=== PATIENT | female | born 1970 | race Caucasian/White ===

== ENCOUNTER 2019-07-09 13:12 | Outpatient (CLI) | payer OTHER, SELFPAY ==
--- NOTE | ~2019-07-09 | XR_ITS ---
EXAMINATION: XR hand RT min 3V DATE: 07/09/2019 13:40 INDICATION: Right hip arthritis. TECHNIQUE: 3 views of right hand were obtained. COMPARISON: None. FINDINGS: Bone alignment is normal. No fracture. There is mild osteoarthritis of third-fifth distal i nterphalangeal joints. IMPRESSION: 1. Mild polyarticular osteoarthritis. Reviewed, dictated and finalized at location A.
== END 2019-07-09 13:13 | disposition home or self-care (01) ==
LOC: ANHIMG 13:22
PROVIDERS: PCP Family Medicine
DX: M19.041 Primary osteoarthritis, right hand (principal)
CPT/HCPCS: 73130

== ENCOUNTER 2019-07-24 11:47 | Outpatient (CLI) | payer OTHER, SELFPAY ==
--- NOTE | ~2019-07-24 | XR_ITS ---
EXAMINATION: XR wrist RT min 3V DATE: 07/24/2019 12:16 INDICATION: Right wrist pain radiating to the thumb. Osteoarthritis of finger joint of right hand. TECHNIQUE: 2 views of right wrist were obtained. COMPARISON: Right hand radiographs 07/09/2019 FINDINGS: Bone alignment is normal. No fracture. Joint spaces are well maintained. IMPRESSION: 1. Normal right wrist. Reviewed, dictated and finalized at location A. IMPRESSION: 1. Normal right wrist.
== END 2019-07-24 11:48 | disposition home or self-care (01) ==
PROVIDERS: PCP Family Medicine
DX: M19.041 Primary osteoarthritis, right hand (principal)
CPT/HCPCS: 73110

== ENCOUNTER 2019-08-28 10:00 | Outpatient (RCR) | payer OTHER, SELFPAY ==
--- NOTE | 2019-08-02 10:43 | OTOPEVAL ---
OCCUPATIONAL THERAPY EVALUATION REPORT 08/02/2019 Thank you for referring Amelia Fleming to [facility]. Skilled OT indicated 2x/week for 4 weeks for deficits described below. Please review, sign, date and return this plan of care BINTA. I agree with and certify that the following plan of care is medically necessary. Referring Physician Date Referring Provider: Alix Smith NP *OT Outpatient Evaluation Therapy Assessment Status Assessment Status Assessment Status Evaluation Outpatient Past Medical History Neurological History Hx Seizures Yes Hx Transient Ischemic Attacks (TIA) Yes Cardiovascular History Hx Angina Yes Hx Hypertension Yes Hx Myocardial Infarction Yes Respiratory History Hx Chronic Obstructive Pulmonary Disease Yes (COPD) Gastrointestinal History Hx Gastroesophageal Reflux Disease Yes Hx Hernia Yes Hx Irritable Bowel Yes Musculoskeletal History Hx Arthritis Yes Evaluation Information Problem Diagnosis OA (R) hand Onset Feb 2019 Subjective Information Patient reports having pain in Query Text:As Reported By Patient/ the right wrist, shooting Family pain with AROM, which would make her hand go to sleep with some electric shocks into the hand and fingers. She also reports joint pain in the thumb and middle finger, noting the thumb being the worse of the two. Patient reports a decline in her ability to use the right hand and has avoided specific activities because of the pain . She has family help with chopping in the kitchen, she is avoiding using the right thumb to put her hair in a pony tail. Pain Assessment Timing of Pain Assessment Timing of Pain Assessment Assessment Pain Scale Pain Scale Used Numeric (1 - 10) Self Report Pain Assessment Right Hand(s) Reported Pain Level 7 Pain Description Aching,Burning,Throbbing, Tightness Lowest Pain Intensity 3 Greatest Pain Intensity 10 Pain Aggravating Factors ADL's Pain Score Pain Score 7: Self Report Upper Extremity Range of Motion Elbow/Forearm Range of Motion Right Reason Not Measured WNL/Right Elbow/Forearm Range of Motion Comments Pain with forearm rotat
--- NOTE | 2019-08-28 11:10 | OTOPEVAL ---
OCCUPATIONAL THERAPY DISCHARGE NOTE 08/28/2019 Therapy re-evaluation today reveals progression/worsening of symptoms of trigger thumb, trigger finger of the MF, and carpal tunnel syndrome. Strongly recommend that she follow up with hand specialist for further treatment before continued therapy. Plan to discharge today with patient independent with splinting and pain reduction techniques. Thank you for referring Amelia Fleming to [facility]. Please review, sign, date and return this D/C Note BINTA. I agree with and certify that the following plan of care is medically necessary. Referring Physician Date Referring Provider: Alix Smith, [facility] CC Dr. Tubbs, per patient request. *OT Outpatient Re-Evaluation Problem Diagnosis OA (R) hand Onset Feb 2019 Additional Evaluation Detail Amelia has participated in 8 sessions of outpatient OT, which have been focusing on pain and inflammation reduction through use of modalities, splinting, and manual therapy. Therapy has not been able to progress past the above treatments due to pain and inflammation not subsiding to allow for AROM/ exercise. She has been compliant with splinting/ immobilization as well as icing and manual therapy at home. Subjective Information Patient reports that her pain Query Text:As Reported By Patient/ and symptoms have gotten worse Family since beginning therapy. Pain Assessment Timing of Pain Assessment Timing of Pain Assessment Re-assessment Pain Scale Pain Scale Used Numeric (1 - 10) Self Report Pain Assessment Right Hand(s) Reported Pain Level 9 Pain Description Aching,Sharp,Shooting,Stabbing ,Tightness,Tingling Pain Radiation Right Elbow Pain Frequency Chronic Lowest Pain Intensity 6 Greatest Pain Intensity 10 Pain Score Pain Score 9: Self Report Upper Extremity Range of Motion Elbow/Forearm Range of Motion Right Reason Not Measured WFL/Right Wrist Range of Motion Right Wrist Flexion - Active 30 Wrist Extension - Active 55 Wrist Radial Deviation - Active 15 Wrist Ulnar Deviation - Active 30 Wrist Range of Motion Limitations Pain Wrist Range of Motion Comments Wrist flexion decreased from 45* Wrist extension decreased from 65*
== END 2019-08-29 14:12 | disposition home or self-care (01) ==
LOC: ANHOT 10:00
PROVIDERS: PCP Family Medicine
DX: M19.041 Primary osteoarthritis, right hand (principal)
CPT/HCPCS: 97018; 97035; 97110; 97140; 97165; 97763; L3808; L3933

== ENCOUNTER 2020-04-03 17:43 | Emergency (ER) | payer OTHER, SELFPAY ==
--- NOTE | 2020-04-03 18:06 | ED.URI ---
HPI - URI/Sore Throat General Chief Complaint: Upper Respiratory Infection Stated Complaint: sore throat Time Seen by Provider: 04/03/20 18:25 Source: patient and RN notes reviewed Mode of arrival: ambulatory Limitations: no limitations History of Present Illness HPI Narrative: 49-year-old female presents with concern for 2 days history of sore throat, right ear pain. Reports history of problems with her ear. She denies fever, cough, shortness of breath, change in sense of taste or smell, body aches, chills, sweats. Denies any intervention. MD elicited complaint: sore throat Related Data Home Medications Medication Instructions Recorded Confirmed Daily Multivitamin 04/03/20 amitriptyline 04/03/20 budesonide-formoterol [Symbicort] INHALATION 04/03/20 cetirizine mg 04/03/20 cholecalciferol (vitamin D3) 04/03/20 famotidine 04/03/20 lisinopril 04/03/20 metoprolol tartrate 04/03/20 naproxen 04/03/20 oxybutynin chloride 04/03/20 rosuvastatin mg 04/03/20 Allergies Allergy/AdvReac Type Severity Reaction Status Date / Time coconut Allergy Severe Anaphylactic Verified 06/14/18 17:48 Shock Penicillins Allergy Unknown Hives / Verified 06/14/18 17:48 Red Face Sulfa (Sulfonamide Allergy Unknown Hives / Verified 06/14/18 17:48 Antibiotics) Red Face Bumble Bee Allergy Severe Anaphylactic Uncoded 06/14/18 17:48 Shock Review of Systems Review of Systems: Narrative: CONSTITUTIONAL: Denies malaise, chills, sweats, or fever. EYES: Denies visual changes, redness, or discharge. ENT: Denies rhinorrhea, congestion, sinus pain. Reports otalgia and sore throat. CARDIOVASCULAR: Denies chest pain, palpitations, or edema. RESPIRATORY: Reports cough. Denies dyspnea. GASTROINTESTINAL: Denies abdominal pain, nausea, vomiting, diarrhea SKIN: Denies rash or itching. MUSCULOSKELETAL: Denies myalgia. NEUROLOGIC: Denies headache. All systems reviewed & are unremarkable except as noted in HPI and below PMFSH Comments At time of signature, agree with nursing past medical, surgical, social and family history. There is no relevant family history pertinent to the presenting complaint Exam Narrative: Exam Narrative: GENERAL: Well-appearing, well-nourished, and in no acute distress. HEAD: Normocephalic EYES: PERRLA, conjunctivae clear ENT: Nares clear, turbinates erythematous, clear discharge. Mucous membranes moist. TM pearly carpenter with dull light reflex on the left, sharp on the right; no tragal tenderness. Oropharynx not erythematous without lesions. Tonsils not enlarged and without exudate, no drooling, no hoarseness, no trismus, uvula midline. NECK: Supple. No lymphadenopathy CHEST: Clear to auscultation, breath sounds equal. No wheezing, rhonchi, rales, or stridor. No respiratory distress, speaks in full sentences. HEART: Regular rate and rhythm. No murmur heard. SKIN: Warm, dry, no rash. NEURO: Alert and oriented x3. PSYCH: Normal mood and affect Course Course Emergency Course: Patient is aware of diagnosis, understands and agrees to treatment plan. Anticipatory guidance given. Patient agrees to follow-up as directed and is aware of reasons to seek care at the emergency department. Portions of this record may have been created with voice recognition software Vital Signs Vital signs: Vital Signs Temperature 97.2 F L 04/03/20 18:10 Pulse Rate 87 04/03/20 18:10 Respiratory Rate 18 04/03/20 18:10 Blood Pressure 122/77 04/03/20 18:10 Pulse Oximetry 98 04/03/20 18:10 Temperature 97.2 F L 04/03/20 18:10 Pulse Rate 87 04/03/20 18:10 Respiratory Rate 18 04/03/20 18:10 Blood Pressure 122/77 04/03/20 18:10 Pulse Oximetry 98 04/03/20 18:10 Reviewed. MDM - URI/Sore Throat MDM Narrative Medical decision making narrative: Differential diagnosis considered: Alaniz virus, strep pharyngitis, allergic rhinitis, upper respiratory tract infection, sinusitis, rhinosinusitis, nasopharyn
[2020-04-03 18:10] VITALS: BP 122/77; PULSE 87; RESP 18; TEMP 36.2; O2SAT 98
== END 2020-04-03 18:44 | disposition home or self-care (01) ==
PROVIDERS: Emergency Provider Nurse Practitioner
DX: J06.9 Acute upper respiratory infection, unspecified (principal); Z20.822 Contact with and (suspected) exposure to COVID-19; Z86.73 Personal history of transient ischemic attack (TIA), and cerebral infarction without residual deficits; I20.9 Angina pectoris, unspecified; E78.00 Pure hypercholesterolemia, unspecified; I10 Essential (primary) hypertension; I25.2 Old myocardial infarction; G47.33 Obstructive sleep apnea (adult) (pediatric); K21.9 Gastro-esophageal reflux disease without esophagitis; M19.90 Unspecified osteoarthritis, unspecified site
CPT/HCPCS: 87081; 87426; 87804; 87880; 99213; C9803; G0463

== ENCOUNTER 2021-02-23 15:57 | Emergency (ER) | payer OTHER, SELFPAY ==
[2021-02-23 16:10] VITALS: BP 111/59; PULSE 73; RESP 16; TEMP 35.7; O2SAT 98
--- NOTE | 2021-02-23 16:43 | ED.URI ---
HPI - URI/Sore Throat General Chief Complaint: Upper Respiratory Infection Stated Complaint: cough Time Seen by Provider: 02/23/21 16:45 Source: patient, family, RN notes reviewed and old records reviewed Mode of arrival: ambulatory Limitations: no limitations History of Present Illness HPI Narrative: 50-year-old female presents to the [facility] care with complaints of cough, sore throat and sinus pressure for 1 week. Has been taking Coricidin HBP. Denies fevers, chest pain, abdominal pain. MD elicited complaint: cough, sore throat, rhinorrhea and nasal congestion Related Data Home Medications Medication Instructions Recorded Confirmed Daily Multivitamin 04/03/20 amitriptyline 25 mg PO DAILY 04/03/20 cetirizine 10 mg PO DAILY 04/03/20 cholecalciferol (vitamin D3) 04/03/20 famotidine 20 mg PO DAILY 04/03/20 lisinopril 10 mg PO DAILY 04/03/20 metoprolol tartrate 04/03/20 naproxen 500 mg PO BID 04/03/20 oxybutynin chloride 5 mg PO BID 04/03/20 rosuvastatin 20 mg PO DAILY 04/03/20 B-Complex W/Vitamin B-12 DAILY 02/23/21 aspirin 81 mg PO DAILY 02/23/21 02/23/21 cholecalciferol (vitamin D3) 25 mcg PO DAILY 02/23/21 02/23/21 esomeprazole magnesium [Nexium] 40 mg PO DAILY 02/23/21 02/23/21 metoprolol tartrate 25 mg PO DAILY 02/23/21 02/23/21 nitroglycerin 0.4 mg SUBLINGUAL Q5M PRN 02/23/21 02/23/21 Allergies Allergy/AdvReac Type Severity Reaction Status Date / Time coconut Allergy Severe Anaphylactic Verified 02/23/21 16:38 Shock Penicillins Allergy Unknown Hives / Verified 02/23/21 16:38 Red Face Sulfa (Sulfonamide Allergy Unknown Hives / Verified 02/23/21 16:38 Antibiotics) Red Face Bumble Bee Allergy Severe Anaphylactic Uncoded 02/23/21 16:38 Shock Review of Systems Review of Systems: All systems reviewed & are unremarkable except as noted in HPI and below Constitutional: Constitutional: Reports no additional constitutional complaints, Denies chills, Denies fever(s) and Denies headache(s) Eyes: Eyes: Reports no additional eye complaints ENT: Reports as per HPI, Denies vertigo, Denies dizziness, Denies headache(s), Reports nasal congestion and Reports sore throat Cardiovascular: Cardiovascular: Reports no additional cardiovascular complaints, Denies chest pain, Denies syncope, Denies rapid heart rate and Denies dyspnea Respiratory: Respiratory: Reports as per HPI, Reports chest congestion, Reports cough, Denies dyspnea and Denies wheezing Gastrointestinal: Gastrointestinal: Reports no additional gastrointestinal complaints, Denies abdominal pain, Denies diarrhea, Denies nausea and Denies vomiting Musculoskeletal: Musculoskeletal: Reports no additional musculoskeletal complaints and Denies numbness Integumentary/Breasts: Skin/Breast: Reports system reviewed and no additional complaints, except as docu Neurologic: Reports system reviewed and no additional complaints, except as documented, Denies vertigo, Denies dizziness, Denies syncope, Denies headache(s), Denies focal weakness and Denies numbness Psychiatric: Psychiatric: Reports no additional psychiatric complaints Allergic/Immunologic: Allergic/Immunologic: Reports no additional allergic/immunologic complaints and Denies wheezing PMFSH Past Medical History Medical History (Updated 02/25/21 @ 10:35 by Arianne Syed) COPD (chronic obstructive pulmonary disease) History of angina History of congestive heart failure Hypertension Social History Social History (Updated 02/25/21 @ 10:36 by Arianne Syed) Smoking status: Former smoker Living arrangements: with family Comments At the time of my signature, I reviewed and agree with the nursing past medical, surgical, social, and family history. There is no relevant family history pertinent to the patient complaint. Exam Const: General: cooperative, no acute distress, well developed, alert and ill appearing acutely (mild) and chronically Nutritional Appearance: well nourished and
== END 2021-02-23 17:02 | disposition home or self-care (01) ==
PROVIDERS: Emergency Provider Nurse Practitioner
DX: J40 Bronchitis, not specified as acute or chronic (principal); J44.9 Chronic obstructive pulmonary disease, unspecified; I11.0 Hypertensive heart disease with heart failure; I50.9 Heart failure, unspecified; Z87.891 Personal history of nicotine dependence; I20.9 Angina pectoris, unspecified
CPT/HCPCS: 99213; G0463

== ENCOUNTER 2022-03-22 17:31 | Emergency (ER) | payer OTHER, SELFPAY ==
[2022-03-22 17:43] VITALS: BP 131/73; PULSE 89; RESP 16; TEMP 36.3; O2SAT 99
[2022-03-22 17:46] VITALS: BP 131/73; PULSE 89; RESP 16; TEMP 36.3; O2SAT 99
--- NOTE | 2022-03-22 18:07 | ED.SKABFB ---
HPI - Skin/Abscess/Foreign Bdy General Chief complaint: Skin/Abscess/Foreign Body Stated complaint: rash Time Seen by Provider: 03/22/22 18:07 Source: patient Mode of arrival: ambulatory Limitations: no limitations History of Present Illness HPI narrative: 51 year old female presented for complaint of red itchy/burning rash to left side. Onset about 3 days, states it has been spreading since onset. Denies changes to lotion, soap, detergent, etc. Denies other locations of rash. Denies contacts with similar symptoms. Denies lip, tongue or throat swelling/itching, sob or wheezing. Not taking anything for symptoms. Related Data Home Medications Medication Instructions Recorded Confirmed Daily Multivitamin 04/03/20 cetirizine 10 mg tablet 10 mg PO DAILY 04/03/20 famotidine 20 mg tablet 20 mg PO DAILY 04/03/20 lisinopril 10 mg tablet 10 mg PO DAILY 04/03/20 naproxen 500 mg tablet 500 mg PO BID 04/03/20 oxybutynin chloride 5 mg tablet 5 mg PO BID 04/03/20 rosuvastatin 10 mg tablet 20 mg PO DAILY 04/03/20 B-Complex W/Vitamin B-12 DAILY 02/23/21 aspirin 81 mg capsule 81 mg PO DAILY 02/23/21 02/23/21 cholecalciferol (vitamin D3) 25 25 mcg PO DAILY 02/23/21 02/23/21 mcg (1,000 unit) tablet esomeprazole magnesium 40 mg 40 mg PO DAILY 02/23/21 02/23/21 capsule,delayed release (Nexium) metoprolol tartrate 25 mg tablet 25 mg PO DAILY 02/23/21 02/23/21 nitroglycerin 0.4 mg sublingual 0.4 mg sublingual Q5M PRN Chest 02/23/21 02/23/21 tablet Pain Allergies Allergy/AdvReac Type Severity Reaction Status Date / Time coconut Allergy Severe Anaphylactic Verified 02/23/21 16:38 Shock Penicillins Allergy Unknown Hives / Verified 02/23/21 16:38 Red Face Sulfa (Sulfonamide Allergy Unknown Hives / Verified 02/23/21 16:38 Antibiotics) Red Face cortisone Allergy Swelling Verified 03/22/22 17:44 Bumble Bee Allergy Severe Anaphylactic Uncoded 02/23/21 16:38 Shock Review of Systems Review of Systems: CONSTITUTIONAL: Denies body aches, fever, chills, or sweats. EYES: Denies visual changes, redness, or discharge. ENT: Denies rhinorrhea, congestion CARDIOVASCULAR: Denies chest pain, palpitations, or edema. RESPIRATORY: Denies cough or dyspnea. GASTROINTESTINAL: Denies abdominal pain, nausea, vomiting, or diarrhea. SKIN: per hPI MUSCULOSKELETAL: Denies back pain, joint pain, or myalgia. NEUROLOGIC: Denies headache, numbness, tingling, or weakness. [facility] Past Medical History Medical History COPD (chronic obstructive pulmonary disease) History of angina History of congestive heart failure Hypertension Social History Social History Smoking status: Former smoker Living arrangements: with family Comments At time of signature, I have reviewed and agree with nursing past medical, surgical, social and family history unless otherwise noted. Please see nursing chart for further information. There is no relevant family history pertinent to the presenting complaint Exam Narrative: GENERAL: Well-appearing HEAD: Normocephalic, atraumatic. EYES: conjunctivae clear, and EOMI. ENT: Mucous membranes moist. Oropharynx without edema, erythema or lesions. NECK: Supple. No lymphadenopathy CHEST: Clear to auscultation. HEART: Regular rate and rhythm. SKIN: Warm, dry. Erythematous vesicular rash to left lower ribs, tender with palpation; area approx 6 inches diameter; no oozing, tenderness towards spine without lesions; c/w zoster. NEURO: Alert and oriented x3. Course Course Emergency Course: Patient is aware of diagnosis, understands and agrees to treatment plan. Anticipatory guidance given. Patient agrees to follow-up as directed and is aware of reasons to seek care at the emergency department. Portions of this record may have been created with voice recognition software Level of Care: Expr
== END 2022-03-22 18:19 | disposition home or self-care (01) ==
PROVIDERS: Emergency Provider Nurse Practitioner Family
DX: B02.9 Zoster without complications (principal); J44.9 Chronic obstructive pulmonary disease, unspecified; I11.0 Hypertensive heart disease with heart failure; I50.9 Heart failure, unspecified; I20.9 Angina pectoris, unspecified; Z87.891 Personal history of nicotine dependence; Z79.82 Long term (current) use of aspirin
CPT/HCPCS: 99213; G0463

== ENCOUNTER 2022-09-13 17:37 | Emergency (ER) | payer OTHER, SELFPAY ==
[2022-09-13 17:46] VITALS: BP 113/75; PULSE 72; RESP 16; TEMP 35.9; O2SAT 99
--- NOTE | 2022-09-13 17:47 | ED.URI ---
HPI - URI/Sore Throat General Chief Complaint: Upper Respiratory Infection Stated Complaint: Sore Throat Time Seen by Provider: 09/13/22 17:47 History of Present Illness HPI Narrative: 51 y/o female presented for c/o sore throat for one day, with nasal drainage. Denies cough, sob, wheezing, n/v/d/f/c. Not taking anything for symptoms. Endorses dtr is sick with similar symptoms. Related Data Home Medications Medication Instructions Recorded Confirmed Daily Multivitamin 04/03/20 cetirizine 10 mg tablet 10 mg PO DAILY 04/03/20 famotidine 20 mg tablet 20 mg PO DAILY 04/03/20 lisinopril 10 mg tablet 10 mg PO DAILY 04/03/20 naproxen 500 mg tablet 500 mg PO BID 04/03/20 oxybutynin chloride 5 mg tablet 5 mg PO BID 04/03/20 rosuvastatin 10 mg tablet 20 mg PO DAILY 04/03/20 B-Complex W/Vitamin B-12 DAILY 02/23/21 aspirin 81 mg capsule 81 mg PO DAILY 02/23/21 02/23/21 cholecalciferol (vitamin D3) 25 25 mcg PO DAILY 02/23/21 02/23/21 mcg (1,000 unit) tablet esomeprazole magnesium 40 mg 40 mg PO DAILY 02/23/21 02/23/21 capsule,delayed release (Nexium) metoprolol tartrate 25 mg tablet 25 mg PO DAILY 02/23/21 02/23/21 nitroglycerin 0.4 mg sublingual 0.4 mg sublingual Q5M PRN Chest 02/23/21 02/23/21 tablet Pain bupropion HCl 150 mg tablet,12 hr mg PO 09/13/22 sustained-release montelukast 10 mg tablet mg 09/13/22 Allergies Allergy/AdvReac Type Severity Reaction Status Date / Time coconut Allergy Severe Anaphylactic Verified 09/13/22 17:51 Shock Penicillins Allergy Unknown Hives / Verified 09/13/22 17:51 Red Face Sulfa (Sulfonamide Allergy Unknown Hives / Verified 09/13/22 17:51 Antibiotics) Red Face cortisone Allergy Swelling Verified 09/13/22 17:51 Bumble Bee Allergy Severe Anaphylactic Uncoded 09/13/22 17:51 Shock Review of Systems Review of Systems: CONSTITUTIONAL: Denies body aches, fever, chills, or sweats. EYES: Denies visual changes, redness, or discharge. ENT: reports rhinorrhea, congestion, sore throat denies otalgia. CARDIOVASCULAR: Denies chest pain, palpitations, or edema. RESPIRATORY: Denies dyspnea. GASTROINTESTINAL: Denies abdominal pain, nausea, vomiting, or diarrhea. SKIN: Denies rash, itching, or wounds. MUSCULOSKELETAL: Denies back pain, joint pain, or myalgia. NEUROLOGIC: Denies headache [facility] Past Medical History Medical History COPD (chronic obstructive pulmonary disease) History of angina History of congestive heart failure Hypertension Social History Social History Smoking status: Former smoker Living arrangements: with family Exam Narrative: GENERAL: well-appearing, no acute distress. EYES: conjunctivae clear ENT: Mucous membranes moist. TMs pearly carpenter with normal light reflex bilaterally; no tragal tenderness. Oropharynx mildly erythematous without lesions. Tonsils not enlarged and without exudate. No drooling, no hoarseness, no trismus, uvula midline. No tripod positioning, hot potato voice, or soft palate swelling. NECK: Supple. No lymphadenopathy CHEST: Clear to auscultation, breath sounds equal. No respiratory distress, speaks in full sentences. HEART: Regular rate and rhythm. No murmur heard. SKIN: Warm, dry, no rash. NEURO: Alert and oriented x3. Course Course Emergency Course: Patient is aware of diagnosis, understands and agrees to treatment plan. Anticipatory guidance given. Patient agrees to follow-up as directed and is aware of reasons to seek care at the emergency department. Portions of this record may have been created with voice recognition software Level of Care: Express Care Visit Vital Signs Vital signs: Vital Signs Temperature 96.6 F L 09/13/22 17:46 Pulse Rate 72 09/13/22 17:46 Respiratory Rate 16 09/13/22 17:46 Blood Pressure 113/75 09/13/22 17:46 Pulse Oximetry 99
== END 2022-09-13 18:45 | disposition home or self-care (01) ==
PROVIDERS: Emergency Provider Nurse Practitioner Family; PCP Family Medicine
DX: J02.9 Acute pharyngitis, unspecified (principal); J44.9 Chronic obstructive pulmonary disease, unspecified; I11.0 Hypertensive heart disease with heart failure; I50.9 Heart failure, unspecified; I20.9 Angina pectoris, unspecified; Z87.891 Personal history of nicotine dependence
CPT/HCPCS: 87081; 87880; 99213; G0463

== ENCOUNTER 2022-09-18 09:42 | Emergency (ER) | payer OTHER, SELFPAY ==
[2022-09-18 09:57] VITALS: BP 119/71; PULSE 62; RESP 16; TEMP 36.4; O2SAT 97
--- NOTE | 2022-09-18 10:09 | ED.URI ---
HPI - URI/Sore Throat General Chief Complaint: Upper Respiratory Infection Stated Complaint: Cough Time Seen by Provider: 09/18/22 10:09 Source: patient, RN notes reviewed and old records reviewed Mode of arrival: ambulatory Limitations: no limitations History of Present Illness HPI Narrative: 51 year old female who [facility] with complaints of chest congestion and reports that it hurts to breathe. Patient reports that cough is harsh and frequent denies any expectoration of mucous. Patient reports that her original symptoms started 8 days ago and she was seen for initially URI symptoms on 09/13/2022 but congestion has gone to chest. Patient reports history of COPD and has been using her inhaler without any relief and has been taking Mucinex severe without improvement. Patient denies any fevers chills or sweats or any body aches, states chest is sore from coughing. MD elicited complaint: cough and other (chest congestion) Pertinent past history: COPD and other (tobacco abuse) Pain scale (0-10): 4 Able to tolerate fluids by mouth: Yes Exacerbating factors: exertion and deep breaths Treatments prior to arrival: other (Mucinex, inhaler) Related Data Home Medications Medication Instructions Recorded Confirmed Daily Multivitamin 1 tab-cap PO DAILY 04/03/20 09/18/22 cetirizine 10 mg tablet 10 mg PO DAILY 04/03/20 09/18/22 famotidine 20 mg tablet 20 mg PO DAILY 04/03/20 09/18/22 lisinopril 10 mg tablet 10 mg PO DAILY 04/03/20 09/18/22 naproxen 500 mg tablet 500 mg PO BID 04/03/20 09/18/22 oxybutynin chloride 5 mg tablet 5 mg PO BID 04/03/20 09/18/22 rosuvastatin 10 mg tablet 20 mg PO DAILY 04/03/20 09/18/22 B-Complex W/Vitamin B-12 1 cap PO DAILY 02/23/21 09/18/22 aspirin 81 mg capsule 81 mg PO DAILY 02/23/21 09/18/22 cholecalciferol (vitamin D3) 25 25 mcg PO DAILY 02/23/21 09/18/22 mcg (1,000 unit) tablet esomeprazole magnesium 40 mg 40 mg PO DAILY 02/23/21 09/18/22 capsule,delayed release (Nexium) metoprolol tartrate 25 mg tablet 25 mg PO DAILY 02/23/21 09/18/22 nitroglycerin 0.4 mg sublingual 0.4 mg sublingual Q5M PRN Chest 02/23/21 09/18/22 tablet Pain bupropion HCl 150 mg tablet,12 hr 150 mg PO DIRECTED 09/13/22 09/18/22 sustained-release montelukast 10 mg tablet 10 mg PO DAILY 09/13/22 09/18/22 Allergies Allergy/AdvReac Type Severity Reaction Status Date / Time coconut Allergy Severe Anaphylactic Verified 09/18/22 10:16 Shock Penicillins Allergy Unknown Hives / Verified 09/18/22 10:16 Red Face Sulfa (Sulfonamide Allergy Unknown Hives / Verified 09/18/22 10:16 Antibiotics) Red Face cortisone Allergy Swelling Verified 09/18/22 10:16 Bumble Bee Allergy Severe Anaphylactic Uncoded 09/18/22 10:16 Shock Review of Systems Review of Systems: CONSTITUTIONAL: Denies malaise, chills, sweats, or fever. EYES: Denies visual changes, redness, or discharge. ENT: Reports rhinorrhea, congestion,no sinus pain, no otalgia or present sore throat. CARDIOVASCULAR: Denies chest pain, palpitations, or edema. RESPIRATORY: Reports harsh frequent cough.? Denies acute dyspnea, reports has noted some wheezing when supine GASTROINTESTINAL: Denies abdominal pain, nausea, vomiting, diarrhea SKIN: Denies rash or itching. MUSCULOSKELETAL: Denies myalgia. NEUROLOGIC: Denies headache. All systems reviewed & are unremarkable except as noted in HPI and below PMFSH Past Medical History Medical History (Updated 09/19/22 @ 09:04 by Elda Peralta NP) COPD (chronic obstructive pulmonary disease) Elevated cholesterol GERD (gastroesophageal reflux disease) History of angina History of congestive heart failure Hypertension Surgical History Surgical History (Updated 09/19/22 @ 09:03 by Elda Peralta NP) H/O: hysterectomy Hx of cholecystectomy Previous section Social History Social History (Updated 09/19/22 @ 09:02 by Elda Peralta NP) Smoking status: Current every d
== END 2022-09-18 10:45 | disposition home or self-care (01) ==
PROVIDERS: Emergency Provider Registered Nurse; PCP Family Medicine
DX: J40 Bronchitis, not specified as acute or chronic (principal); J44.9 Chronic obstructive pulmonary disease, unspecified; I11.0 Hypertensive heart disease with heart failure; I50.9 Heart failure, unspecified; F17.200 Nicotine dependence, unspecified, uncomplicated; Z79.82 Long term (current) use of aspirin; Z79.899 Other long term (current) drug therapy
CPT/HCPCS: 99213; G0463

== ENCOUNTER 2022-11-29 10:23 | Observation (INO) | payer OTHER, SELFPAY ==
--- NOTE | ~2022-11-29 | CT_ITS ---
EXAMINATION: CT brain wo con DATE: 11/29/2022 13:19 INDICATION: Feeling foggy TECHNIQUE: Computed tomography (CT) of the head was performed without intravenous contrast. Sagittal and coronal reconstructions were performed. The mA was adjusted according to patient size. Iterative reconstruction technique was employed. The dose-length product was 529.67 mGy-cm. COMPARISON: None FINDINGS: No acute intracranial hemorrhage, acute infarction or abnormal extra axial fluid collection. Ventricl es are normal and symmetric. No mass/mass effect. The orbits, paranasal sinuses and mastoid air cells are normal. IMPRESSION: 1. No acute intracranial process. Reviewed, dictated and finalized at location A.
--- NOTE | ~2022-11-29 | US_ITS ---
EXAMINATION: US carotid duplex BI DATE: 11/30/2022 11:22 INDICATION: Vertigo TECHNIQUE: Grayscale, color Doppler, and pulsed Doppler images of the cervical carotid arteries were obtained. The degree of vessel stenosis is placed in one of the following categories: normal, <50%, 5 0-69%, >=70% but less than near-occlusion, near-occlusion, or total occlusion. Note that percent sten osis relative to normal distal artery lumen diameter is indirectly measured from velocity measurement s as described by Teddy, et al. Radiology 2003; 229:340-346. COMPARISON: None. FINDINGS: RIGHT: The right common carotid artery (CCA) peak systolic velocity (PSV) is 104 cm/s. The right internal ca rotid artery (ICA) PSV is 100 cm/s. The right ICA end-diastolic velocity (EDV) is 43 cm/s. The right ICA/CCA PSV ratio is 1.0. Grayscale and color Doppler images yield an estimate of <50% diameter reduc tion from plaque in the ICA. The external carotid artery (ECA) PSV is 113 cm/s. There is antegrade fl ow in the right vertebral artery. LEFT: The left CCA PSV is 101 cm/s. The left ICA PSV is 78 cm/s. The left ICA EDV is 33 cm/s. The left ICA/ CCA PSV ratio is 0.8. Grayscale and color Doppler images yield an estimate of <50% diameter reduction from plaque in the ICA. The ECA PSV is 106 cm/s. There is antegrade flow in the left vertebral arter y. IMPRESSION: 1. <50% stenosis from minimal plaque in the right internal carotid artery. 2. <50% stenosis from minimal plaque in the left internal carotid artery. Reviewed, dictated and finalized at location A.
--- NOTE | ~2022-11-29 | XR_ITS ---
Clinical Indication: Weakness AP and lateral views of the chest: Comparison: 06/14/2018 Findings: The lungs are clear, without evidence of focal consolidation or pleural effusion. Cardiome diastinal silhouette is within normal limits. Bones and soft tissues are unremarkable. Impression: Normal chest. Reviewed, dictated and finalized at [facility]. Impression: Normal chest.
--- NOTE | ~2022-11-29 | MR_ITS ---
MRI of the brain Clinical History: TIA, CVA Technique: Axial and sagittal T1-weighted images were acquired. These were followed by axial T2-weigh clarice, diffusion weighted, gradient, and FLAIR images. Following intravenous administration of 19 cc Mu ltiHance gadolinium, T1-weighted fat-sat imaging was performed in the axial and coronal planes. Findings: No abnormal signal seen in the brain parenchyma. There is no acute/subacute infarct, intrac ranial hemorrhage, or mass lesion. Ventricles and subarachnoid spaces are unremarkable. Orbits are unremarkable. Paranasal sinuses and m astoid air cells are clear. Major intracranial flow voids appear intact. Sagittal midline structures are intact. No abnormal postcontrast enhancement identified. IMPRESSION: No significant abnormality seen. Reviewed, dictated and finalized at location .
--- NOTE | 2022-11-29 10:26 | ECG_ITS ---
Measurements Intervals [place] Rate: 68 P: 1 MN: 154 QRS: 20 QRSD: 88 T: 13 QT: 410 QTc: 439 Interpretive Statements SINUS RHYTHM COMPARED TO ECG 06/14/2018 17:47:43 NO SIGNIFICANT CHANGES Electronically Signed On 11-29-2022 15:03:00 CDT by Will Milan M.D.
[2022-11-29 10:32] VITALS: BP 116/66; PULSE 71; RESP 16; TEMP 36.2
[2022-11-29 10:57] LABS: Basophils Percent Auto 0.2 % (0.2-1.2); Eosinophils Absolute Auto 0.2 K/mm3 (0-0.3); Eosinophils Percent Auto 3.2 % (0-4.4); Hematocrit 38.7 % (37.0-47.0); Hemoglobin 12.3 g/dL (12.0-15.0); Immature Granulocyte Absolute 0.01 K/mm3 (0.00-0.031); Immature Granulocyte Percent A 0.2 % (0-0.5); Lymphocytes Absolute Auto 1.61 K/mm3 (0.9-3.2); Lymphocytes Percent Auto 30.2 % (18.3-44.2); Mean Corpuscular HGB Conc 31.8 g/dl (32-36); Mean Corpuscular Hemoglobin 29.5 pg (26-34); Mean Corpuscular Volume 92.8 fl (80-100); Monocytes Absolute Auto 0.3 K/mm3 (0.1-0.6); Monocytes Percent Auto 5.6 % (2.6-8.5); Neutrophils Absolute Auto 3.2 K/mm3 (1.3-6.7); Neutrophils Percent Auto 60.6 % (45.5-73.1); Platelet Count Result 143 k/mm3 (150-375); Red Blood Count 4.17 M/mm3 (4.2-5.4); Red Cell Distribution Width 13.9 % (11.5-14.5); White Blood Count 5.3 K/mm3 (4.5-10.0)
[2022-11-29 11:09] LABS: Alanine Aminotransferase 22 U/L (6-35); Albumin Level 4.1 g/dL (3.5-5.1); Alkaline Phosphatase 85 U/L (38-126); Anion Gap 8 mmol/L (8-16); Aspartate Amino Transferase 23 U/L (14-36); Bilirubin,Total 0.6 mg/dL (0.2-1.3); Blood Urea Nitrogen 16 mg/dL (7-17); Calcium 8.5 mg/dL (8.4-10.2); Carbon Dioxide 27 mmol/L (22-30); Chloride 104 mmol/L (98-107); Estimated CRCL calculation 60 ml/min; Estimated Glomerular Filt Rate 58; Glucose 119 mg/dL (65-110); Potassium 4.3 mmol/L (3.4-5.0); Sodium 139 mmol/L (137-145)
--- NOTE | 2022-11-29 12:49 | ED.WEAKNESS ---
HPI - Weakness General Chief complaint: Weakness Stated complaint: Weakness Time Seen by Provider: 11/29/22 12:10 Source: patient and EMS Mode of arrival: EMS History of Present Illness HPI Narrative: 52 years old white female with This morning feeling wobbly, difficult hearing left ear, left face numbness, very unsteady, foggy, like some thing [place] nervous system, shaking while trying to walk all over. Patient got up at 830 this morning, with slow motion, vomited once at home, intermittent nausea, denied any history of vertigo, currently feeling off, her symptoms worse with any body movement or head movement. History of angina, hypertension, hyperlipidemia and TIA. Patient does not smoke or drink or uses drugs. Related Data Home Medications Medication Instructions Recorded Confirmed Daily Multivitamin 1 tab-cap PO DAILY 04/03/20 09/18/22 cetirizine 10 mg tablet 10 mg PO DAILY 04/03/20 09/18/22 famotidine 20 mg tablet 20 mg PO DAILY 04/03/20 09/18/22 lisinopril 10 mg tablet 10 mg PO DAILY 04/03/20 09/18/22 naproxen 500 mg tablet 500 mg PO BID 04/03/20 09/18/22 oxybutynin chloride 5 mg tablet 5 mg PO BID 04/03/20 09/18/22 rosuvastatin 10 mg tablet 20 mg PO DAILY 04/03/20 09/18/22 B-Complex W/Vitamin B-12 1 cap PO DAILY 02/23/21 09/18/22 aspirin 81 mg capsule 81 mg PO DAILY 02/23/21 09/18/22 cholecalciferol (vitamin D3) 25 25 mcg PO DAILY 02/23/21 09/18/22 mcg (1,000 unit) tablet esomeprazole magnesium 40 mg 40 mg PO DAILY 02/23/21 09/18/22 capsule,delayed release (Nexium) metoprolol tartrate 25 mg tablet 25 mg PO DAILY 02/23/21 09/18/22 nitroglycerin 0.4 mg sublingual 0.4 mg sublingual Q5M PRN Chest 02/23/21 09/18/22 tablet Pain bupropion HCl 150 mg tablet,12 hr 150 mg PO DIRECTED 09/13/22 09/18/22 sustained-release montelukast 10 mg tablet 10 mg PO DAILY 09/13/22 09/18/22 Allergies Allergy/AdvReac Type Severity Reaction Status Date / Time coconut Allergy Severe Anaphylactic Verified 09/18/22 10:16 Shock Penicillins Allergy Unknown Hives / Verified 09/18/22 10:16 Red Face Sulfa (Sulfonamide Allergy Unknown Hives / Verified 09/18/22 10:16 Antibiotics) Red Face cortisone Allergy Swelling Verified 09/18/22 10:16 Bumble Bee Allergy Severe Anaphylactic Uncoded 09/18/22 10:16 Shock Review of Systems Review of Systems: All systems reviewed & are unremarkable except as noted in HPI and below PMFSH Past Medical History Medical History COPD (chronic obstructive pulmonary disease) Elevated cholesterol GERD (gastroesophageal reflux disease) History of angina History of congestive heart failure Hypertension Surgical History Surgical History H/O: hysterectomy Hx of cholecystectomy Previous section Social History Social History Smoking status: Current every day smoker Alcohol intake: unknown Substance use type: does not use Living arrangements: with family Gender identity (if verbalized by the patient): Female Exam Narrative: General appearance: Well-developed, well-nourished laying down on the right side of her body, get more dizzy if she switch position or try to sit up. Skin: Normal color Head: Normocephalic, nontraumatic Eyes: Clear conjunctiva ENT: Oropharynx normal, ears normal, nose normal Neck: Supple, nontender Chest and respiratory: Airway patent, no respiratory distress, no accessory muscle use Heart: Regular rate/rhythm Abdomen: Soft, nontender, no organomegaly, quiet bowel sounds Vascular: Normal peripheral pulses, normal capillary refill. Musculoskeletal: Normal range of motion, nontender back Neurologic: Alert and oriented ?3, INSTRUCTIONAL DESIGN SPECIALIST is normal as tested, no gross motor deficit
[2022-11-29 12:53] LABS: Appearance Urine Clear (Clear); Bilirubin Urine Negative (Negative); Blood Urine Negative (Negative); Color Urine Yellow (Yellow); Glucose Urine UA Negative (Negative); Ketones Urine Negative (Negative); Leukocyte Esterase Ur Trace LEU/UL (Negative); Nitrate Urine Negative (Negative); Protein Urine Negative (Negative); Specific Grav Ur 1.006 (1.001-1.035); pH Urine 7.5 (5.0-9.0)
[2022-11-29 13:00] LABS: Add Urine Microscopic? YES
[2022-11-29 13:07] LABS: Squamous Epithelial Cell Urine Rare /hpf (Few)
[2022-11-29 13:08] LABS: RBC Urine 0-2 /hpf (0-2)
[2022-11-29] MEDS: ONDANSETRON INJ 4 MG/2 ML VIAL IV PUSH (14:13)
[2022-11-29] MEDS: MECLIZINE HCL 25 MG TABLET PO (14:14)
[2022-11-29] MEDS: diazePAM INJ (*CRX) 10 MG/2 ML SYRINGE 5 MG IV PUSH (14:22)
[2022-11-29 14:25] VITALS: PULSE 75; RESP 18
[2022-11-29 14:26] VITALS: BP 132/86; PULSE 75; RESP 17
--- NOTE | 2022-11-29 18:02 | PM.IMHP ---
H&P: HPI History of Present Illness Date/Time: 11/29/22 18:00 Chief Complaint: Neurologic symptoms. Narrative: This is a 52-year-old female with history of TIA, seizures, hypertension, chronic obstructive pulmonary disease, sleep apnea, and other comorbidities who presented to the emergency department via EMS for evaluation of neurologic symptoms ?I feel like my nervous system is being attacked.? The patient provides the following history. She felt off when she awoke from sleep and when she sat up in bed she felt ?off? and reports that everything seemed to be moving around her, including herself. She attempted to stand up and felt very weak and wobbly on her feet. She also reports decreased hearing in the left ear, mild numbness in the left side of the face, and tremors. She felt nauseated due to the moving sensation and she had 1 episode of emesis before coming to the hospital. She denies fever, chills, sweats, headache, sinus congestion, sore throat, chest pain, pleuritic pain, palpitations, sensations of racing heart, shortness of breath, facial droop, visual changes, and focal weakness. In the ED: She was afebrile on arrival with stable vital signs. Labs were pretty unremarkable although platelet count was a bit low at 143. EKG showed a sinus rhythm with no ST segment changes. Brain CT showed no acute process. Chest x-ray was normal. She was given diazepam 5 mg IV, meclizine 25 mg p.o., and ondansetron 4 mg IV with some benefit. She was unable to ambulate however due to extreme vertigo and she is being admitted in this setting. Review of Systems Review of Systems: Twelve systems were reviewed and are negative except for as per HPI. [facility] Past Medical History Medical History (Updated 11/29/22 @ 23:33 by Christin Peguero PA-C) Chronic obstructive pulmonary disease Elevated cholesterol Gastroesophageal reflux disease History of congestive heart failure Poorly documented History of seizure Hypertension Myocardial infarction Obstructive sleep apnea Transient ischemic attack Surgical History Surgical History (Updated 11/29/22 @ 23:31 by Christin Peguero PA-C) History of cardiac catheterization History of section History of cholecystectomy History of hysterectomy Social History Social History (Updated 11/29/22 @ 23:31 by Christin Peguero PA-C) Social History: Surrogate medical decision maker: Chely Albrecht, friend. Code status: Full code. Smoking status: Former smoker Tobacco type: cigarettes Additional smoking assessment comments: Stopped smoking 6 years ago Alcohol intake: never Substance use: never Substance use type: does not use Lack of Transportation: No Lack of Food: Never True Current Housing: I Have Housing Concerned About Future Housing: YES Difficulty Paying Gas/Electric Bills: No Difficulty Paying for Meds: No Currently Unemployed: No Education: Master's Degree or Higher Difficulty w/ Childcare or Family Care: No Living arrangements: with family Spiritual care concerns: No Meds Home Medications and Allergies Home Medications Medication Instructions Recorded Confirmed Type Daily Multivitamin 1 tab-cap PO DAILY 04/03/20 11/29/22 History cetirizine 10 mg tablet 10 mg PO DAILY 04/03/20 11/29/22 History famotidine 20 mg tablet 20 mg PO DAILY 04/03/20 11/29/22 History lisinopril 10 mg tablet 10 mg PO DAILY 04/03/20 11/29/22 History naproxen 500 mg tablet 500 mg PO BID 04/03/20 11/29/22 History oxybutynin chloride 5 mg tablet 5 mg PO BID 04/03/20 11/29/22 History rosuvastatin 10 mg tablet 20 mg PO DAILY 04/03/20 11/29/22 History B-Complex W/Vitamin B-12 1 cap PO DAILY 02/23/21 11/29/22 History albuterol sulfate 90 mcg/actuation 2 puff inhalation QID PRN 02/23/21 11/29/22 Rx aerosol inhaler shortness of breath or wheezing #6.7 grams aspirin 81 mg capsule 81 mg PO DAILY 02/23/21 11/29/22 History cholecalciferol (vitamin D3) 25 25 mcg PO DAILY
[2022-11-29 19:31] VITALS: BP 116/73; PULSE 82; RESP 14
[2022-11-29 20:53] VITALS: BP 99/72; PULSE 69; RESP 16; TEMP 36.3; O2SAT 96; BMI 41.4
[2022-11-29 22:39] VITALS: BMI 41.4
--- NOTE | 2022-11-29 22:43 | ADMGEN ---
This patient, Amelia Fleming, was admitted to [facility] Surg Room 305-02 at 2034. Patient/family oriented to hospital policies and general routines including ID bracelet, bed and alarms, visiting hours, pain management, procedures, bathroom and other care routines, personal items, smoking policy, room service/diet, and visiting hours. Information on how to activate the Rapid Response Team has been discussed. Patient/Family are encouraged to report perceived risks to care and to ask questions if they do not understand what they are told or what they should do.
[2022-11-30] VITALS (14 sets, daily range): BP systolic 90–130; BP diastolic 43–86; PULSE 60–94; RESP 14–18; TEMP 35.6–36.5; O2SAT 95–98
[2022-11-30 06:02] LABS: Hematocrit 40.6 % (37.0-47.0); Hemoglobin 12.6 g/dL (12.0-15.0); Mean Corpuscular Hemoglobin 29.3 pg (26-34); Mean Corpuscular Volume 94.4 fl (80-100); Mean Platelet Volume 12.3 fl (7.4-10.4); Platelet Count Result 146 k/mm3 (150-375); Red Cell Distribution Width 13.9 % (11.5-14.5); White Blood Count 5.2 K/mm3 (4.5-10.0)
[2022-11-30 06:13] LABS: Anion Gap 5 mmol/L (8-16); Blood Urea Nitrogen 17 mg/dL (7-17); Calcium 8.6 mg/dL (8.4-10.2); Carbon Dioxide 31 mmol/L (22-30); Chloride 103 mmol/L (98-107); Estimated CRCL calculation 61 ml/min; Estimated Glomerular Filt Rate 58; Glucose 102 mg/dL (65-110); Magnesium 2.1 mg/dL (1.6-2.3); Potassium 4.2 mmol/L (3.4-5.0); Sodium 139 mmol/L (137-145)
--- NOTE | 2022-11-30 08:00 | PM.IMPN ---
Progress Note: A&P Assessment and Plan (1) Vertigo: Code(s): R42 - Dizziness and giddiness Status: Acute Assessment and Plan: Subjective complaints of vertigo trial of valium, meclizine, and zofran without much effect patient requested scopolamine patch PT consulted for vestibular therapy head CT negative MRI brain, ECHO, and US carotid duplex ordered neuro checks q shift (2) Hypertension: Code(s): I10 - Essential (primary) hypertension Status: Acute Assessment and Plan: Blood pressures reviewed today and are stable continue amlodipine and metoprolol orthostatic vital signs ordered and were positive. Hold lisinopril for now and likely will need to decrease dose Telemetry (3) Chronic obstructive pulmonary disease: Code(s): J44.9 - Chronic obstructive pulmonary disease, unspecified Status: Acute Assessment and Plan: Asthma history continue Singulair, Claritin (4) Gastroesophageal reflux disease: Code(s): K21.9 - Gastro-esophageal reflux disease without esophagitis Status: Acute Assessment and Plan: On Protonix and Pepcid at home continued while hospitalized Plan Feeding:heart healthy diet Analgesia:tylenol Thromboembolic prophylaxis: scd Ulcer prophylaxis: ppi Glycemic control: na Bowel regimen: na Lines: piv Antibiotics: na Disposition: home PT to complete eval with vestibular therapy Awaiting final reads on ECHO, MRI Subjective Date/time seen: 11/30/22 08:00 Interval history: HPI obtained from chart, This is a 52-year-old female with history of TIA, seizures, hypertension, chronic obstructive pulmonary disease, sleep apnea, and other comorbidities who presented to the emergency department via EMS for evaluation of neurologic symptoms ?I feel like my nervous system is being attacked.? The patient provides the following history. She felt off when she awoke from sleep and when she sat up in bed she felt ?off? and reports that everything seemed to be moving around her, including herself. She attempted to stand up and felt very weak and wobbly on her feet. She also reports decreased hearing in the left ear, mild numbness in the left side of the face, and tremors. She felt nauseated due to the moving sensation and she had 1 episode of emesis before coming to the hospital. She denies fever, chills, sweats, headache, sinus congestion, sore throat, chest pain, pleuritic pain, palpitations, sensations of racing heart, shortness of breath, facial droop, visual changes, and focal weakness. Interval history, 11/30-seen at the bedside with her family present. She reports having an dizziness yesterday which she describes as things going in slow motion. She also experienced bilateral lower extremity weakness as well as hearing loss to her left ear and left facial numbness. She says she has never experienced anything like this before. She denies any new medications or taking any [id number] medications. She feels that the meclizine possibly help some however she has not been up and ambulatory since arriving to the floor. Echo, MRI, and carotid duplex have all been completed. Awaiting final reports. She is also supposed to see PT today for vestibular therapy. Orthostatic vitals were completed and were positive. Will adjust medications. Review of Systems Review of Systems: All systems reviewed & are unremarkable except as noted in HPI and below Exam Narrative: General: well appearing, well developed, well nourished, appears stated age. HEENT: normocephalic, atraumatic. Mucous membranes moist. EOMI, PERRLA, bilateral sclera anicteric, no conjunctival injection. Neck supple without JVD, lymphadenopathy, or bruit. Respiratory: clear to auscultation bilaterally. No rales/rhonic/wheezes. Cardiovascular: Regular rate and rhythm, normal S1-S2 upon auscultation. No murmurs, rubs, or clicks. PMI is nondisplaced, capilla
[2022-11-30] MEDS: ASPIRIN 81 MG CHEWABLE TABLET PO (11:18)
[2022-11-30] MEDS: MECLIZINE HCL 25 MG TABLET PO ×3 (11:18→17:40)
[2022-11-30] MEDS: VITAMIN B COMPLEX CAPSULE 1 CAP PO (11:18)
[2022-11-30] MEDS: ROSUVASTATIN 10 MG TABLET 20 MG PO (11:18)
[2022-11-30] MEDS: buPROPion HCL SR (12 HR) 150 MG TAB PO ×2 (11:19→21:29)
[2022-11-30] MEDS: lisinopriL 10 MG TABLET PO (11:20)
[2022-11-30] MEDS: CHOLECALCIFEROL 1,000 UNITS TABLET 1000 UNITS PO (11:20)
[2022-11-30] MEDS: FAMOTIDINE 20 MG TABLET PO (11:20)
[2022-11-30] MEDS: METOPROLOL TARTRATE 25 MG TABLET PO ×2 (11:20→21:29)
[2022-11-30] MEDS: MULTIVITAMINS THERAPEUTIC TAB (*BKC) 1 TABLET PO (11:20)
[2022-11-30] MEDS: oxyBUTYnin CHLORIDE 5 MG TABLET PO ×2 (11:21→17:39)
[2022-11-30] MEDS: PANTOPRAZOLE 40 MG TABLET PO (11:21)
[2022-11-30] MEDS: LORATADINE 10 MG TABLET PO (11:22)
[2022-11-30] MEDS: MONTELUKAST SODIUM 10 MG TABLET PO (11:22)
[2022-11-30] MEDS: ACETAMINOPHEN 325 MG TABLET 650 MG PO (11:40)
--- NOTE | 2022-11-30 11:51 | PC.NURSE ---
On 11/30/22, the student, [Tammie Angeles ], provided care and completed [facility] documentation on this patient. I have reviewed the student's documentation and agree with the findings.
[2022-11-30 17:37] LABS: Appearance Urine Cloudy (Clear); Bacteria Urine None Seen /hpf; Bilirubin Urine Negative (Negative); Blood Urine Negative (Negative); Color Urine Yellow (Yellow); Glucose Urine UA Negative (Negative); Ketones Urine Negative (Negative); Leukocyte Esterase Ur 1+ LEU/UL (Negative); Nitrate Urine Negative (Negative); Non Pathogenic Casts 0-2; Protein Urine Negative (Negative); RBC Urine 0-2 /hpf (0-2); Specific Grav Ur 1.009 (1.001-1.035); Squamous Epithelial Cell Urine None seen /hpf (Few); pH Urine 7.5 (5.0-9.0)
[2022-11-30] MEDS: SODIUM CHLORIDE 0.9% IV 1,000 ML 75 ML IV CONT (17:38)
[2022-11-30] MEDS: PHENAZOPYRIDINE HCL 100 MG TABLET 200 MG PO (17:39)
[2022-11-30 18:02] LABS: Add Urine Microscopic? YES
--- NOTE | 2022-11-30 18:41 | PC.NURSE ---
Chely Guerra provided care for this patient on 11/30/22. I agreed with her assessments and charting.
--- NOTE | 2022-11-30 23:36 | ECHO_ITS ---
Patient Info Name: Amelia Fleming Age: 52 years : 1970 Gender: Female Ht: 60 in Wt: 212 lbs BSA: 2.07 m2 HR: 77 bpm BP: 122 / 82 mmHg Heart Rhythm: Sinus Rhythm Technical Quality: Good Exam Date: 11/30/2022 8:57 AM Exam Location: [facility] Pulmonary Patient Status: Outpatient Admit Date: 11/29/2022 Staff Ordering Physician: Christin Peguero PA-C Marketing Programs Specialist: Kisha Guevara RDCS Attending Provider: Rylan Little MD Referring Physician: Marielena DAVILA; Exam Type: CA echo doppler color flow Study Info Indications - vertigo, htn, hld Complete two-dimensional, color flow and Doppler transthoracic echocardiogram is performed. Summary 1. Complete two-dimensional, color flow and Doppler transthoracic echocardiogram is performed. 2. Left ventricular chamber dimension is normal. 3. Left ventricular systolic function is normal, estimated at 65-70%. 4. There is no increased left ventricular wall thickness. 5. The left ventricular diastolic function is normal. 6. The aortic valve is probable trileaflet although not well visualized. 7. There is mild aortic valve sclerosis. 8. There is mild aortic valve stenosis with a peak velocity of 177 cm/s, mean gradient of 8 mmHg, and aortic valve area of 1.6 cm2. 9. There is no aortic valve regurgitation. Left Ventricle Left ventricular chamber dimension is normal. Left ventricular systolic function is normal, estimated at 65-70%. There is no increased left ventricular wall thickness. The left ventricular diastolic function is normal. Right Ventricle Right ventricular chamber dimension is normal. Right ventricular systolic function is normal. Left Atria Left atrial chamber dimension is normal. Right Atria Right atrial chamber dimension is normal. Aortic Valve The aortic valve is probable trileaflet although not well visualized. There is mild aortic valve sclerosis. There is mild aortic valve stenosis with a peak velocity of 177 cm/s, mean gradient of 8 mmHg, and aortic valve area of 1.6 cm2. There is no aortic valve regurgitation. Pulmonic Valve The pulmonic valve is not well visualized. Mitral Valve The mitral valve has normal leaflets. There is trace mitral valve regurgitation. The mitral valve annulus is moderately calcified. Tricuspid Valve The tricuspid valve leaflets are normal. There is trace tricuspid valve regurgitation. No pulmonary hypertension, estimated pulmonary arterial systolic pressure is 20 mmHg. Pericardium/Pleural The pericardium appears normal. There is trivial pericardial effusion. Inferior Vena Cava Normal inferior vena cava with >50% collapse upon inspiration consistent with normal right atrial pressure, 5 mmHg. Aorta The aortic root size at the sinus of Valsalva is normal. Left Ventricular Outflow Tract Name Value Normal LVOT 2D LVOT Diameter 1.6 cm LVOT Doppler LVOT Peak Gradient 5 mmHg LVOT Mean Gradient 3 mmHg LVOT VTI 25 cm LVOT VTI/AV VTI Ratio 0.8 LVOT Stroke Volume 52 ml LVOT CO 3.8 l/min LVOT CI
[2022-12-01] VITALS (7 sets, daily range): BP systolic 103–124; BP diastolic 61–73; PULSE 60–76; RESP 16–18; TEMP 35.9–36.6; O2SAT 95–99
[2022-12-01] MEDS: SODIUM CHLORIDE 0.9% IV 1,000 ML 75 ML IV CONT (06:13)
[2022-12-01 06:29] LABS: Basophils Percent Auto 0.2 % (0.2-1.2); Eosinophils Absolute Auto 0.2 K/mm3 (0-0.3); Eosinophils Percent Auto 3.8 % (0-4.4); Hematocrit 39.4 % (37.0-47.0); Hemoglobin 12.6 g/dL (12.0-15.0); Immature Granulocyte Absolute 0.01 K/mm3 (0.00-0.031); Immature Granulocyte Percent A 0.2 % (0-0.5); Lymphocytes Absolute Auto 2.16 K/mm3 (0.9-3.2); Lymphocytes Percent Auto 37.5 % (18.3-44.2); Mean Corpuscular Hemoglobin 29.6 pg (26-34); Mean Corpuscular Volume 92.5 fl (80-100); Mean Platelet Volume 12.2 fl (7.4-10.4); Monocytes Absolute Auto 0.5 K/mm3 (0.1-0.6); Monocytes Percent Auto 8.3 % (2.6-8.5); Neutrophils Absolute Auto 2.9 K/mm3 (1.3-6.7); Platelet Count Result 143 k/mm3 (150-375); Red Blood Count 4.26 M/mm3 (4.2-5.4); Red Cell Distribution Width 13.7 % (11.5-14.5); White Blood Count 5.8 K/mm3 (4.5-10.0)
[2022-12-01 06:48] LABS: Anion Gap 8 mmol/L (8-16); Blood Urea Nitrogen 17 mg/dL (7-17); Calcium 8.7 mg/dL (8.4-10.2); Carbon Dioxide 28 mmol/L (22-30); Chloride 103 mmol/L (98-107); Estimated CRCL calculation 56 ml/min; Estimated Glomerular Filt Rate 52; Glucose 98 mg/dL (65-110); Magnesium 1.9 mg/dL (1.6-2.3); Sodium 139 mmol/L (137-145)
--- NOTE | 2022-12-01 07:53 | PM.IMPN ---
Progress Note: A&P Assessment and Plan (1) Vertigo: Code(s): R42 - Dizziness and giddiness Status: Acute Assessment and Plan: Subjective complaints of vertigo trial of valium, meclizine, and zofran without much effect patient requested scopolamine patch PT consulted for vestibular therapy head CT negative MRI brain, ECHO, and US carotid duplex ordered. All are normal. neuro checks q shift (2) UTI (urinary tract infection): Code(s): N39.0 - Urinary tract infection, site not specified Status: Acute Assessment and Plan: Complaints of suprapubic pain and tenderness with urinary frequency Repeat U/A and culture. Add on culture from 11/29 with enterococcus Started on Rocephin 11/30 IV fluids NS at 75 ml per hour Cr 1.10 Pyridium for bladder anesthesia (3) Hypertension: Code(s): I10 - Essential (primary) hypertension Status: Acute Assessment and Plan: Blood pressures reviewed today and are stable continue amlodipine and metoprolol orthostatic vital signs ordered and were positive. Hold lisinopril for now and likely will need to decrease dose Telemetry (4) Chronic obstructive pulmonary disease: Code(s): J44.9 - Chronic obstructive pulmonary disease, unspecified Status: Acute Assessment and Plan: Asthma history continue Singulair, Claritin (5) Gastroesophageal reflux disease: Code(s): K21.9 - Gastro-esophageal reflux disease without esophagitis Status: Acute Assessment and Plan: On Protonix and Pepcid at home continued while hospitalized Plan Feeding:heart healthy diet Analgesia:tylenol Thromboembolic prophylaxis: scd Ulcer prophylaxis: ppi Glycemic control: na Bowel regimen: na Lines: piv Antibiotics: na Disposition: home PT to complete eval with vestibular therapy ECHO, MRI, and carotid Doppler all negative IV abx started 11/30. Given another Rocephin today and likely to d/c home with oral abx. tomorrow. Awaiting culture results. Subjective Date/time seen: 12/01/22 07:53 Interval history: HPI obtained from chart, This is a 52-year-old female with history of TIA, seizures, hypertension, chronic obstructive pulmonary disease, sleep apnea, and other comorbidities who presented to the emergency department via EMS for evaluation of neurologic symptoms ?I feel like my nervous system is being attacked.? The patient provides the following history. She felt off when she awoke from sleep and when she sat up in bed she felt ?off? and reports that everything seemed to be moving around her, including herself. She attempted to stand up and felt very weak and wobbly on her feet. She also reports decreased hearing in the left ear, mild numbness in the left side of the face, and tremors. She felt nauseated due to the moving sensation and she had 1 episode of emesis before coming to the hospital. She denies fever, chills, sweats, headache, sinus congestion, sore throat, chest pain, pleuritic pain, palpitations, sensations of racing heart, shortness of breath, facial droop, visual changes, and focal weakness. Interval history, 11/30-seen at the bedside with her family present. She reports having an dizziness yesterday which she describes as things going in slow motion. She also experienced bilateral lower extremity weakness as well as hearing loss to her left ear and left facial numbness. She says she has never experienced anything like this before. She denies any new medications or taking any vnws-ymi-[id number] medications. She feels that the meclizine possibly help some however she has not been up and ambulatory since arriving to the floor. Echo, MRI, and carotid duplex have all been completed. Awaiting final reports. She is also supposed to see PT today for vestibular therapy. Orthostatic vitals were completed and were positive. Will adjust medications. 12/01-NAEON. Patient reports improve
[2022-12-01] MEDS: VITAMIN B COMPLEX CAPSULE 1 CAP PO (08:21)
[2022-12-01] MEDS: ROSUVASTATIN 10 MG TABLET 20 MG PO (08:21)
[2022-12-01] MEDS: PANTOPRAZOLE 40 MG TABLET PO (08:22)
[2022-12-01] MEDS: FAMOTIDINE 20 MG TABLET PO (08:22)
[2022-12-01] MEDS: ASPIRIN 81 MG CHEWABLE TABLET PO (08:22)
[2022-12-01] MEDS: PHENAZOPYRIDINE HCL 100 MG TABLET 200 MG PO ×2 (08:22→11:27)
[2022-12-01] MEDS: CHOLECALCIFEROL 1,000 UNITS TABLET 1000 UNITS PO (08:22)
[2022-12-01] MEDS: buPROPion HCL SR (12 HR) 150 MG TAB PO (08:23)
[2022-12-01] MEDS: MONTELUKAST SODIUM 10 MG TABLET PO (08:23)
[2022-12-01] MEDS: MECLIZINE HCL 25 MG TABLET PO ×2 (08:23→12:06)
[2022-12-01] MEDS: METOPROLOL TARTRATE 25 MG TABLET PO (08:23)
[2022-12-01] MEDS: LORATADINE 10 MG TABLET PO (08:24)
[2022-12-01] MEDS: MULTIVITAMINS THERAPEUTIC TAB (*BKC) 1 TABLET PO (08:24)
[2022-12-01] MEDS: oxyBUTYnin CHLORIDE 5 MG TABLET PO (08:24)
[2022-12-01] MEDS: NITROFURANTOIN MONOHYD MACROCR 100 MG CAP PO (15:00)
--- NOTE | 2022-12-01 15:10 | PM.DS ---
DS: Admitting Diagnosis Discharge Date 12/01 Admitting Diagnosis Dizziness DS: Discharge Diagnosis Discharge Diagnosis (1) Vertigo: Code(s): R42 - Dizziness and giddiness Status: Acute Assessment and Plan: Subjective complaints of vertigo trial of valium, meclizine, and zofran without much effect patient requested scopolamine patch PT consulted for vestibular therapy head CT negative MRI brain, ECHO, and US carotid duplex ordered. All are normal. neuro checks q shift (2) UTI (urinary tract infection): Code(s): N39.0 - Urinary tract infection, site not specified Status: Acute Assessment and Plan: Complaints of suprapubic pain and tenderness with urinary frequency Repeat U/A and culture. Add on culture from 11/29 with enterococcus Started on Rocephin 11/30 IV fluids NS at 75 ml per hour Cr 1.10 Pyridium for bladder anesthesia (3) Hypertension: Code(s): I10 - Essential (primary) hypertension Status: Acute Assessment and Plan: Blood pressures reviewed today and are stable continue amlodipine and metoprolol orthostatic vital signs ordered and were positive. Hold lisinopril for now and likely will need to decrease dose Telemetry (4) Chronic obstructive pulmonary disease: Code(s): J44.9 - Chronic obstructive pulmonary disease, unspecified Status: Acute Assessment and Plan: Asthma history continue Singulair, Claritin (5) Gastroesophageal reflux disease: Code(s): K21.9 - Gastro-esophageal reflux disease without esophagitis Status: Acute Assessment and Plan: On Protonix and Pepcid at home continued while hospitalized Plan Feeding:heart healthy diet Analgesia:tylenol Thromboembolic prophylaxis: scd Ulcer prophylaxis: ppi Glycemic control: na Bowel regimen: na Lines: piv Antibiotics: na Disposition: home PT to complete eval with vestibular therapy ECHO, MRI, and carotid Doppler all negative IV abx started 11/30. Given another Rocephin today and likely to d/c home with oral abx. tomorrow. Awaiting culture results. DS: Summary Hospital Course Hospital Course: HPI obtained from chart, This is a 52-year-old female with history of TIA, seizures, hypertension, chronic obstructive pulmonary disease, sleep apnea, and other comorbidities who presented to the emergency department via EMS for evaluation of neurologic symptoms ?I feel like my nervous system is being attacked.? The patient provides the following history. She felt off when she awoke from sleep and when she sat up in bed she felt ?off? and reports that everything seemed to be moving around her, including herself. She attempted to stand up and felt very weak and wobbly on her feet. She also reports decreased hearing in the left ear, mild numbness in the left side of the face, and tremors. She felt nauseated due to the moving sensation and she had 1 episode of emesis before coming to the hospital. She denies fever, chills, sweats, headache, sinus congestion, sore throat, chest pain, pleuritic pain, palpitations, sensations of racing heart, shortness of breath, facial droop, visual changes, and focal weakness. Interval history, 11/30-seen at the bedside with her family present.? She reports having an dizziness yesterday which she describes as things going in slow motion.? She also experienced bilateral lower extremity weakness as well as hearing loss to her left ear and left facial numbness.? She says she has never experienced anything like this before.? She denies any new medications or taking any adhi-drw-annxetq medications.? She feels that the meclizine possibly help some however she has not been up and ambulatory since arriving to the floor.? Echo, MRI, and carotid duplex have all been completed.? Awaiting final reports.? She is also supposed to see PT today for vestibular therapy.? Orthostatic vitals were completed and were positive.? W
== END 2022-12-01 16:50 | disposition home or self-care (01) ==
LOC: ANHED 15:38 → ANH3MEDSUR 12-01 15:19
PROVIDERS: Emergency Medicine; Nurse Practitioner Acute Care; Physician Assistant; Admitting Provider Hospitalist; Emergency Provider Emergency Medicine; PCP Family Medicine; Visit Provider Internal Medicine
DX: R42 Dizziness and giddiness (principal); N39.0 Urinary tract infection, site not specified; B95.2 Enterococcus as the cause of diseases classified elsewhere; H91.92 Unspecified hearing loss, left ear; R26.81 Unsteadiness on feet; R11.2 Nausea with vomiting, unspecified; I10 Essential (primary) hypertension; R07.9 Chest pain, unspecified; I35.8 Other nonrheumatic aortic valve disorders; R56.9 Unspecified convulsions; K21.9 Gastro-esophageal reflux disease without esophagitis; E78.00 Pure hypercholesterolemia, unspecified; R06.02 Shortness of breath; I25.2 Old myocardial infarction; D69.6 Thrombocytopenia, unspecified; G47.30 Sleep apnea, unspecified; J44.9 Chronic obstructive pulmonary disease, unspecified; F17.210 Nicotine dependence, cigarettes, uncomplicated; Z86.73 Personal history of transient ischemic attack (TIA), and cerebral infarction without residual deficits; Z79.1 Long term (current) use of non-steroidal anti-inflammatories (NSAID); Z79.51 Long term (current) use of inhaled steroids; Z79.82 Long term (current) use of aspirin; Z79.899 Other long term (current) drug therapy
CPT/HCPCS: 36415; 70450; 70553; 71046; 80048; 80053; 81001; 82607; 83735; 84443; 85025; 85027; 87086; 87147; 87181; 87186; 93005; 93306; 93880; 96361; 96365; 96374; 96375; 97161; 99285; A9270; A9577; G0378; G0379; J0696; J2405; J3360; J7030

== ENCOUNTER 2023-01-19 12:45 | Emergency (ER) | payer OTHER, SELFPAY ==
[2023-01-19 13:01] VITALS: BP 125/80; PULSE 73; RESP 18; TEMP 36.4; O2SAT 100
--- NOTE | 2023-01-19 13:11 | ED.GENADULT ---
HPI - General Adult General Chief complaint: Upper Respiratory Infection Stated complaint: cough,sore throat,urinary issue Source: patient, RN notes reviewed and old records reviewed Mode of arrival: ambulatory Limitations: no limitations History of Present Illness HPI narrative: 52-year-old female [facility] with complaint of sore throat, and cough for 2 days. Patient denies shortness of breath, fevers, dizziness, chest pain, weakness. patient not taking anything for symptoms MD complaint: cough Onset (ago): day(s) (2) Related Data Home Medications Medication Instructions Recorded Confirmed Daily Multivitamin 1 tab-cap PO DAILY 04/03/20 01/19/23 cetirizine 10 mg tablet 10 mg PO DAILY 04/03/20 01/19/23 famotidine 20 mg tablet 20 mg PO DAILY 04/03/20 01/19/23 lisinopril 10 mg tablet 10 mg PO DAILY 04/03/20 01/19/23 naproxen 500 mg tablet 500 mg PO BID 04/03/20 01/19/23 oxybutynin chloride 5 mg tablet 5 mg PO BID 04/03/20 01/19/23 rosuvastatin 10 mg tablet 20 mg PO DAILY 04/03/20 01/19/23 B-Complex W/Vitamin B-12 1 cap PO DAILY 02/23/21 01/19/23 aspirin 81 mg capsule 81 mg PO DAILY 02/23/21 01/19/23 cholecalciferol (vitamin D3) 25 25 mcg PO DAILY 02/23/21 01/19/23 mcg (1,000 unit) tablet esomeprazole magnesium 40 mg 40 mg PO DAILY 02/23/21 01/19/23 capsule,delayed release (Nexium) metoprolol tartrate 25 mg tablet 25 mg PO DAILY 02/23/21 01/19/23 nitroglycerin 0.4 mg sublingual 0.4 mg sublingual Q5M PRN Chest 02/23/21 01/19/23 tablet Pain bupropion HCl 150 mg tablet,12 hr 150 mg PO DIRECTED 09/13/22 01/19/23 sustained-release montelukast 10 mg tablet 10 mg PO DAILY 09/13/22 01/19/23 Allergies Allergy/AdvReac Type Severity Reaction Status Date / Time bee venom protein (honey bee) Allergy Severe Anaphylactic Verified 01/19/23 13:10 Shock coconut Allergy Severe Anaphylactic Verified 01/19/23 13:10 Shock Penicillins Allergy Unknown Hives / Verified 01/19/23 13:10 Red Face Sulfa (Sulfonamide Allergy Unknown Hives / Verified 01/19/23 13:10 Antibiotics) Red Face cortisone Allergy Swelling Verified 01/19/23 13:10 Review of Systems Constitutional: Constitutional: Reports no additional constitutional complaints, Denies body ache(s), Denies chills, Denies fatigue, Denies fever(s), Denies headache(s) and Denies increased appetite Eyes: Eyes: Reports no additional eye complaints ENT: Reports as per HPI and Reports sore throat Cardiovascular: Cardiovascular: Reports no additional cardiovascular complaints Respiratory: Respiratory: Reports as per HPI and Reports cough Neurologic: Reports system reviewed and no additional complaints, except as documented PMF Past Medical History Medical History Chronic obstructive pulmonary disease Elevated cholesterol Gastroesophageal reflux disease History of congestive heart failure Poorly documented History of seizure Hypertension Myocardial infarction Obstructive sleep apnea Transient ischemic attack Surgical History Surgical History History of cardiac catheterization History of section History of cholecystectomy History of hysterectomy Social History Social History Social History: Surrogate medical decision maker: Chely Albrecht, friend. Code status: Full code. Smoking status: Former smoker Tobacco type: cigarettes Additional smoking assessment comments: Stopped smoking 6 years ago Alcohol intake: never Substance use: never Substance use type: does not use Lack of Transportation: No Lack of Food: Never True Current Housing: I Have Housing Concerned About Future Housing: YES Difficulty Paying Gas/Electric Bills: No Difficulty Paying for Meds: No Currently Unemployed: No Education: Master's Degree or Higher Diffic
== END 2023-01-19 13:22 | disposition home or self-care (01) ==
PROVIDERS: Emergency Provider Registered Nurse; PCP Family Medicine
DX: J40 Bronchitis, not specified as acute or chronic (principal); R30.0 Dysuria; Z87.891 Personal history of nicotine dependence; J44.9 Chronic obstructive pulmonary disease, unspecified; E78.00 Pure hypercholesterolemia, unspecified; K21.9 Gastro-esophageal reflux disease without esophagitis; I25.2 Old myocardial infarction; I11.0 Hypertensive heart disease with heart failure; I50.9 Heart failure, unspecified; Z86.73 Personal history of transient ischemic attack (TIA), and cerebral infarction without residual deficits; Z79.82 Long term (current) use of aspirin
CPT/HCPCS: 81003; 87081; 87086; 87880; 99213; G0463

== ENCOUNTER 2023-02-08 08:00 | Outpatient (RCR) | payer OTHER, SELFPAY ==
--- NOTE | 2023-01-03 15:29 | OPREHPOC ---
Outpatient Therapy Plan of Care This is a Multidisciplinary Plan of Care that may contain components documented by all disciplines (PT, OT, and ST.) PT Problem 1 PT Problem #1 Knowledge Deficit PT Goal 1 Goal 1* indep with HEP 2* demonstrate correct posture with HEP PT Problem 2 PT Problem #2 Pain PT Goal 1 Goal 1* pt report pain in neck at worst of 10 2* pt report headaches every other day 3* pt report worst duration of headache of 4 hours 4* radicular pain at worst to R elbow 5* radicular pain at worst to L elbow PT Problem 3 PT Problem #3 Impaired Flexibility PT Goal 1 Goal decrease muscle tightness and spasms, to improve flexibility of neck for mobility 1* cervical rotation R 50' 2* cervical rotation L 55' PT Problem 4 PT Problem #4 Impaired Functional Mobil PT Goal 1 Goal improve vestibular system, pt able to perform without vestibular issues: 1* walking 60' and turn head R/L 3x each 2* pick item up off floor 3* transfer supine/sit 4* monitor BP as needed during sessions 5* further testing of vestibular system
--- NOTE | 2023-01-03 15:30 | PTOPEVAL1 ---
Assessment and note entered by Annabelle Mckeon, PT Evaluation Information Assessment Status Evaluation Diagnosis dizziness Onset Nov 29, 2022 Subjective Information woke up that AM with feeling funny-- L ear numb, face feels funny, waves of feelings vertical and horizontal motions, walking wobbly legs could barely walk--not really spinning; to ER on Nov 29 and admitted for 2 day stay at hospital--had severe UTI, fluid in L ear with bulging ear drum; symptoms have eased since hospital; hearing is OK now; taking meclazine 3x/day- scheduled and it helps- she has taken 2x today; increase symptoms: bend forward, sit and lie down, turning head quickly; have never had PT for her neck in the past; have not had any recent imaging, have orders for xray and going to get it soon; Reported Pain Level Pain Score Self Report Additional Pain Score Comments pain range in past week 3-10/10 sharp pain in center of base of neck; hurts all the time, stiff and painful; into both hands intermittent; when lie wrong- arm goes numb; have migraines--not have recently; have headaches weekly, last 1 hr to all day; Assessment PT Clinical Summary Amelia has the diagnosis of dizziness. She was hospitalized in Nov due to severe UTI, vestibular issues and not able to walk. 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 Discussed with her obtaining a home BP cuff--she does not have one; With the evaluation: she has poor neck and shoulder positioning; decreased cervical ROM and pain--most pain with extension; moderate to severe spasms over neck and upper traps; decreased bilateral shoulder ROM with pain; with [place] to the R she campa
--- NOTE | 2023-01-03 16:40 | PCPTNOTE ---
pt was 15 min late for eval appt;
--- NOTE | 2023-01-18 10:35 | PCPTNOTE ---
Pt. canceled 01/18/23 appointment noting that she was sick.
--- NOTE | 2023-02-01 08:03 | PCPTNOTE ---
Mrs. Fleming contacted the clinic by phone and stated that she was ill and could not attend treatment on 02/01/23. Nicolas Polanco, MPT
--- NOTE | 2023-02-08 08:57 | PTOPDC ---
Assessment and note entered by Annabelle Mckeon, PT Discharge Information Assessment Status Discharge Diagnosis dizziness Onset Nov 29, 2022 Subjective Information feel like dizziness is a little less, still have neck pain and feel dizziness comes from neck sometimes, shoulders hurting more from the exercises; going to call shoulder surgeon; do not have appointment with her general dr; have a wavy- like feeling, when move head to fast have quick,spinning motion; bp been 138/81- per her smart watch; (taken here 107/81) Reported Pain Level Pain Score Self Report Additional Pain Score Comments pain range of 3-10+/10 in the past week; have headache every day, headaches worse with more neck pain; bad headache, take meds and goes away in few hours; intermittent, radicular pain into R and L UE to fingers; awaken from pain 6-10 x/night; take flexeril for pain 4x in the past week, at night time; decrease pain with stretching, heat, stim, position change, rest exercises have flared up her shoulder pain; stretching and massage helps her neck; also have pain in back, shoulders; Assessment PT Clinical Summary Amelia has received 8 PT sessions. She called/ canceled 2 appointments. Compared to the initial evaluation: pain rating is the same at 3-10/10; radicular pain intermittent to both hands; continues to have headaches, bilateral shoulder pain and neck pain, with some dizziness with movements of head and postioning changes; BPPV was checked and cleared, dizziness appears to be related to her cervical pain and headaches; cervical rotation to R and L ranges are about the same and both increase her pain; education completed for HEP and posture. Electrical stim and heat decrease her pain; she is to obtain a home stim unit. The goals were partially met. Discharge PT services. She it to continue with her home exercises, monitor posture and self control of pain. She is also going to contact her general dr and shoulder dr for follow up appointments. Plan of Care PT Services In
== END 2023-02-08 10:03 | disposition home or self-care (01) ==
LOC: ANHPT 08:00
PROVIDERS: PCP Family Medicine
DX: R42 Dizziness and giddiness (principal)
CPT/HCPCS: 97014; 97110; 97140; 97162; 97530; G0283

== ENCOUNTER 2023-02-23 07:44 | Outpatient (CLI) | payer OTHER, SELFPAY ==
--- NOTE | ~2023-02-23 | XR_ITS ---
EXAMINATION: [id number] DATE: 02/23/2023 08:12 INDICATION: Neck pain. TECHNIQUE: 4 views of cervical spine were obtained. COMPARISON: None. FINDINGS: There is mild kyphosis of cervical spine. There is 8 degrees dextrocurvature of cervicothor acic spine. Vertebral body heights are normal. There is mildly decreased disc height at C3-C4 and C4- C5 and severely decreased disc height at C6-C7. There is multilevel uncovertebral joint osteoarthriti s, severe bilaterally at C6-C7. There is multilevel mild facet joint osteoarthritis. There is mild ce ntral canal stenosis at C3-C4, C4-C5, and C6-C7. No prevertebral soft tissue swelling. IMPRESSION: 1. Severe cervical spondylosis. Reviewed, dictated and finalized at location A. [facility]
[2023-02-23 08:59] LABS: Alanine Aminotransferase 24 U/L (6-35); Alkaline Phosphatase 79 U/L (38-126); Aspartate Amino Transferase 22 U/L (14-36); Bilirubin,Total 0.6 mg/dL (0.2-1.3); Cholesterol 120 mg/dL (0-200); HDL Direct 37 mg/dL; Triglycerides 232 mg/dL (<150)
[2023-02-23 09:10] LABS: LDL Cholesterol Direct 55 mg/dL
== END 2023-02-23 07:45 | disposition home or self-care (01) ==
PROVIDERS: PCP Family Medicine; Referring Provider Internal Medicine Cardiovascular Disease
DX: Z01.818 Encounter for other preprocedural examination (principal); M43.02 Spondylolysis, cervical region; E78.2 Mixed hyperlipidemia; I10 Essential (primary) hypertension; I25.10 Atherosclerotic heart disease of native coronary artery without angina pectoris
CPT/HCPCS: 36415; 72040; 80061; 80076

== ENCOUNTER 2023-06-18 10:38 | Outpatient (CLI) | payer OTHER, SELFPAY ==
--- NOTE | ~2023-06-18 | MR_ITS ---
EXAMINATION: MR cervical spine wo con DATE: 06/18/2023 11:54 INDICATION: Cervical radiculopathy. TECHNIQUE: Magnetic resonance imaging (MRI) of the cervical spine was performed without intravenous c ontrast. COMPARISON: Cervical spine radiographs 02/23/2023 FINDINGS: There is 7 degrees dextrocurvature of the thoracic spine. There is mild kyphosis of cervica l spine. Vertebral heights are normal. There is moderately decreased disc height at C3-C4, mildly dec reased disc height at C4-C5, and severely decreased disc height at C6-C7. The spinal cord signal inte nsity is normal. The following disc levels are specifically discussed: C2-C3: The disc does not extend beyond the endplate margin. There is no uncovertebral joint osteoarth ritis. There is mild right facet joint osteoarthritis. There is no neural foraminal stenosis. There i s no central canal stenosis. C3-C4: The disc is bulging. There is severe bilateral uncovertebral joint osteoarthritis. There is no facet joint osteoarthritis. There is mild bilateral neural foraminal stenosis. There is mild central canal stenosis. C4-C5: The disc is bulging. There is severe bilateral uncovertebral joint osteoarthritis. There is no facet joint osteoarthritis. There is mild bilateral neural foraminal stenosis. There is mild central canal stenosis. C5-C6: The disc does not extend beyond the endplate margin. There is mild left uncovertebral joint os teoarthritis. There is moderate right and mild left facet joint osteoarthritis. There is no neural fo raminal stenosis. There is no central canal stenosis. C6-C7: The disc is bulging. There is severe bilateral uncovertebral joint osteoarthritis. There is mo derate right and mild left facet joint osteoarthritis. There is mild bilateral neural foraminal steno sis. There is mild central canal stenosis. C7-T1: The disc does not extend beyond the endplate margin. There is no uncovertebral joint osteoarth ritis. There is severe right and moderate left facet joint osteoarthritis. There is mild right neural foraminal stenosis. There is no central canal stenosis. IMPRESSION: 1. Severe cervical spondylosis. Reviewed, dictated and finalized at location A.
== END 2023-06-18 10:39 | disposition home or self-care (01) ==
LOC: ANHIMG 10:42
PROVIDERS: PCP Family Medicine
DX: G95.9 Disease of spinal cord, unspecified (principal); M47.22 Other spondylosis with radiculopathy, cervical region
CPT/HCPCS: 72141

== ENCOUNTER 2023-07-13 09:21 | Outpatient (CLI) | payer OTHER, SELFPAY ==
[2023-07-13 10:04] LABS: Alanine Aminotransferase 30 U/L (6-35); Albumin Level 4.3 g/dL (3.5-5.1); Alkaline Phosphatase 52 U/L (38-126); Anion Gap 7 mmol/L (4-12); Aspartate Amino Transferase 31 U/L (14-36); Bilirubin,Total 0.6 mg/dL (0.2-1.3); Blood Urea Nitrogen 24 mg/dL (7-17); Calcium 8.9 mg/dL (8.4-10.2); Carbon Dioxide 28 mmol/L (22-30); Chloride 104 mmol/L (98-107); Cholesterol 98 mg/dL (0-200); Estimated Glomerular Filt Rate 47; Glucose 93 mg/dL (65-110); HDL Direct 41 mg/dL; Potassium 4.4 mmol/L (3.4-5.0); Sodium 139 mmol/L (137-145); Triglycerides 137 mg/dL (<150)
[2023-07-13 10:17] LABS: LDL Cholesterol Direct 49 mg/dL
== END 2023-07-13 09:22 | disposition home or self-care (01) ==
LOC: ANHLAB 09:24
PROVIDERS: PCP Family Medicine; Visit Provider Internal Medicine Cardiovascular Disease
DX: I25.10 Atherosclerotic heart disease of native coronary artery without angina pectoris (principal); E78.2 Mixed hyperlipidemia; I10 Essential (primary) hypertension
CPT/HCPCS: 36415; 80053; 80061

== ENCOUNTER 2024-02-21 11:38 | Emergency (ER) | payer OTHER, SELFPAY ==
[2024-02-21 11:44] VITALS: BP 123/79; PULSE 88; RESP 20; TEMP 36.4; O2SAT 100
--- NOTE | 2024-02-21 12:07 | ED.URI ---
HPI - URI/Sore Throat General Chief Complaint: Upper Respiratory Infection Stated Complaint: Sinus pressure/sore throat Time Seen by Provider: 02/21/24 12:07 Source: patient Mode of arrival: ambulatory Limitations: no limitations History of Present Illness HPI Narrative: [age] year female presents complaint sore throat, congestion, postnasal drainage for the past 1-2 weeks. Reports throat the last 5 days feels like swallowing razor blades and feels swollen. Patient has a ENT specialist. Has been past needs sinus surgery to help with her symptoms. Is not currently taking any [id number] allergy or sinus Sprays. All systems reviewed and negative except as noted above. Related Data Home Medications ?Medication ?Instructions ?Recorded ?Confirmed ?Last Taken ?Type Daily Multivitamin 1 tab-cap PO DAILY 04/03/20 01/19/23 Unknown History cetirizine 10 mg tablet 10 mg PO DAILY 04/03/20 01/19/23 Unknown History famotidine 20 mg tablet 20 mg PO DAILY 04/03/20 01/19/23 Unknown History lisinopril 10 mg tablet 10 mg PO DAILY 04/03/20 01/19/23 Unknown History naproxen 500 mg tablet 500 mg PO BID 04/03/20 01/19/23 Unknown History oxybutynin chloride 5 mg tablet 5 mg PO BID 04/03/20 01/19/23 Unknown History rosuvastatin 10 mg tablet 20 mg PO DAILY 04/03/20 01/19/23 Unknown History B-Complex W/Vitamin B-12 1 cap PO DAILY 02/23/21 01/19/23 Unknown History aspirin 81 mg capsule 81 mg PO DAILY 02/23/21 01/19/23 Unknown History cholecalciferol (vitamin D3) 25 25 mcg PO DAILY 02/23/21 01/19/23 Unknown History mcg (1,000 unit) tablet esomeprazole magnesium 40 mg 40 mg PO DAILY 02/23/21 01/19/23 Unknown History capsule,delayed release (Nexium) metoprolol tartrate 25 mg tablet 25 mg PO DAILY 02/23/21 01/19/23 Unknown History nitroglycerin 0.4 mg sublingual 0.4 mg sublingual Q5M PRN Chest 02/23/21 01/19/23 Unknown History tablet Pain bupropion HCl 150 mg tablet,12 hr 150 mg PO DIRECTED 09/13/22 01/19/23 Unknown History sustained-release montelukast 10 mg tablet 10 mg PO DAILY 09/13/22 01/19/23 Unknown History Allergies Allergy/AdvReac Type Severity Reaction Status Date / Time bee venom protein (honey bee) Allergy Severe Anaphylactic Verified 01/19/23 13:10 Shock coconut Allergy Severe Anaphylactic Verified 01/19/23 13:10 Shock Penicillins Allergy Unknown Hives / Verified 01/19/23 13:10 Red Face Sulfa (Sulfonamide Allergy Unknown Hives / Verified 01/19/23 13:10 Antibiotics) Red Face cortisone Allergy Swelling Verified 01/19/23 13:10 Review of Systems Review of Systems: CONSTITUTIONAL: Denies fever, chills, or sweats. EYES: Denies visual changes, redness, or discharge. ENT: Reports rhinorrhea, congestion, sore throat. Denies otalgia. CARDIOVASCULAR: Denies chest pain, palpitations, or edema. RESPIRATORY: Denies cough or dyspnea. GASTROINTESTINAL: Denies abdominal pain, nausea, vomiting, or diarrhea. GENITOURINARY: Denies dysuria or hematuria. SKIN: Denies rash or itching. MUSCULOSKELETAL: Denies back pain, joint pain, or myalgia. NEUROLOGIC: Denies headache, numbness, or weakness. PSYCHIATRIC: Denies anxiety or depression. All other systems reviewed are negative, except as documented in HPI. [facility] Past Medical History Medical History Chronic obstructive pulmonary disease Elevated cholesterol Gastroesophageal reflux disease History of congestive heart failure Poorly documented History of seizure Hypertension Myocardial infarction Obstructive sleep apnea Transient ischemic attack Surgical History Surgical History History of cardiac catheterization History of section History of cholecystectomy History of hysterectomy Social History Social History Social History: Surrogate medical decision maker: Chely Albrecht, friend. Code status: Full code. Smoking status: Former smoker Tobacco type: cigarettes Additional smoking assessment comments: Stopped smoking 6 years ago Alcohol intake: never Substance use: never Substance use type: does not use Lack of Transportation: No Lack of Food: Never True Current Housing: I Have Housing Concerned About Future Housing: YES Difficulty Paying Gas/Electric Bills: No Difficulty Paying for Meds: No Currently Unemployed: No Education: Master's Degree or Higher Difficulty w/ Childcare or Family Care: No Living arrangements: with family Spiritual care concerns: No Comments At time of signature, agree with nursing past medical, surgical, social and family history. There is no relevant family history pertinent to the presenting complaint. Exam Narrative: GENERAL: This is a well-nourished, well-developed patient, in no apparent distress. HEAD: normocephalic, atraumatic. EYES: PERRL. Sclera clear/white. Vision is grossly intact. EARS: External ears normal, auditory canals clear and without drainage, TMs normal without perforation. Hearing grossly intact. NOSE: External nose normal with mild congestion, erythema and swelling to bilateral nares THROAT: Mucous membranes moist, erythema, swelling to posterior pharynx. Thick green postnasal drainage noted. NECK: Neck supple, non-tender without lymphadenopathy, masses or thyromegaly. CARDIOVASCULAR: Regular rate and rhythm without murmurs, gallops, or rubs. RESPIRATORY: Clear to auscultation. Breath sounds equal bilaterally. No wheezes, rales, or rhonchi. SKIN: warm, Dry, intact with no suspicious lesions or rash, good texture and turgor. NEURO: awake, alert, and oriented to person, place and time. There were no obvious focal neurologic abnormalities. EXTREMITIES: No joint tenderness, effusion, or edema noted. Course Course Level of Care: Express Care Visit Vital Signs Vital signs: Vital Signs Temperature 36.4 C L 02/21/24 11:44 Pulse Rate 88 02/21/24 11:44 Respiratory Rate 20 02/21/24 11:44 Blood Pressure 123/79 02/21/24 11:44 Pulse Oximetry 100 02/21/24 11:44 Oxygen Delivery Room Air 02/21/24 11:44 Temperature 36.4 C L 02/21/24 11:44 Pulse Rate 88 02/21/24 11:44 Respiratory Rate 20 02/21/24 11:44 Blood Pressure 123/79 02/21/24 11:44 Pulse Oximetry 100 02/21/24 11:44 Oxygen Delivery Room Air 02/21/24 11:44 Reviewed MDM - URI/Sore Throat MDM Narrative Medical decision making narrative: negative rapid strep. Strep culture ordered. Will treat patient for bacterial sinusitis due to duration of symptoms and exam findings with doxycycline. Recommend follow-up with her ENT specialist Due to the large amount of thick green postnasal drainage noted. Patient is aware of diagnosis, understands and agrees to treatment plan. Anticipatory guidance given. Patient agrees to follow-up as directed and is aware of reasons to seek care at the emergency department. Portions of this record may have been created with voice recognition software Lab Data Labs: Lab Results 02/21/24 Range/Units 11:45 POC Grp A Strep Screen Negative (Negative) Discharge Plan Discharge Clinical Impression: Acute bacterial sinusitis Patient Disposition: Home, Self-Care Condition: Stable Instructions: Antibiotic Form, Sinusitis (ED) Additional Instructions: your strep test was negative today. A strep culture was ordered results will take 24-48 hours. If your strep culture is positive we will call you at that time and prescribed an antibiotic. Take medications as prescribed. Purchase [id number] Coricidin sinus and take as directed on packaging. drink at least 64 oz of water a day. 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 Patient Language: Moldovan Prescriptions: New doxycycline hyclate 100 mg capsule 100 mg PO BID 7 Days Qty: 14 0RF prednisone 20 mg tablet 40 mg PO DAILY 5 Days Qty: 10 0RF fluticasone propionate [Flonase Allergy Relief] 50 mcg/actuation spray,suspension 1 spray intranasal BID Qty: 16 0RF Rx Instructions: administer into each nostril No Action B-Complex W/Vitamin B-12 1 cap PO DAILY esomeprazole magnesium [Nexium] 40 mg Capsule,Delayed Release(Dr/Ec) 40 mg PO DAILY nitroglycerin 0.4 mg Tablet, Sublingual 0.4 mg SUBLINGUAL Q5M PRN (Reason: Chest Pain) metoprolol tartrate 25 mg tablet 25 mg PO DAILY cholecalciferol (vitamin D3) 25 mcg (1,000 unit) tablet 25 mcg PO DAILY aspirin 81 mg Capsule 81 mg PO DAILY albuterol sulfate 90 mcg/actuation HFA aerosol inhaler 2 puff inhalation QID PRN (Reason: shortness of breath or wheezing) Qty: 6.7 0RF cetirizine 10 mg tablet 10 mg PO DAILY famotidine 20 mg tablet 20 mg PO DAILY lisinopril 10 mg tablet 10 mg PO DAILY oxybutynin chloride 5 mg tablet 5 mg PO BID naproxen 500 mg tablet 500 mg PO BID rosuvastatin 10 mg tablet 20 mg PO DAILY Daily Multivitamin 1 tab-cap PO DAILY bupropion HCl 150 mg tablet sustained-release 12 hr 150 mg PO DIRECTED montelukast 10 mg tablet 10 mg PO DAILY albuterol sulfate [Proventil HFA] 90 mcg/actuation HFA aerosol inhaler 2 puff inhalation QID PRN (Reason: shortness of breath or wheezing) Qty: 6.7 0RF Rx Instructions: Whatever is covered with insurance nitrofurantoin monohyd/m-cryst [Macrobid] 100 mg capsule 100 mg PO Q12H 4 Days Qty: 8 0RF Rx Instructions: must administer with a meal/food meclizine 25 mg Tablet 25 mg PO TID Qty: 15 0RF phenazopyridine 100 mg Tablet 200 mg PO TIDWM Qty: 20 0RF Follow-up/Referrals: Debo,Sharon Ruiz APRN [Primary Care Provider] - Time of Disposition: 12:15
[2024-02-21 12:12] LABS: EDSTREPNEGPOS1 Negative (Negative)
== END 2024-02-21 12:22 | disposition home or self-care (01) ==
PROVIDERS: Emergency Provider Nurse Practitioner Family; PCP Midwife
DX: J01.90 Acute sinusitis, unspecified (principal); B96.89 Other specified bacterial agents as the cause of diseases classified elsewhere; J44.9 Chronic obstructive pulmonary disease, unspecified; I25.2 Old myocardial infarction; I11.0 Hypertensive heart disease with heart failure; I50.9 Heart failure, unspecified; Z86.73 Personal history of transient ischemic attack (TIA), and cerebral infarction without residual deficits; Z87.891 Personal history of nicotine dependence
CPT/HCPCS: 87081; 87880; 99213; G0463

== ENCOUNTER 2024-07-15 15:59 | Emergency (ER) | payer OTHER, SELFPAY ==
--- NOTE | ~2024-07-15 | XR_ITS ---
EXAM: XR ankle LT min 3V DATE: 07/15/2024 16:20 HISTORY: Inversion injury-ankle pain 3 weeks ago . COMPARISON: None available. FINDINGS: Normal mineralization. No fracture or dislocation. No lytic or blastic lesion. Mild scatte red degenerative changes. Plantar enthesopathy. No erosion or periosteal change. Soft tissues within normal limits. IMPRESSION: No acute osseous finding in the left ankle. Reviewed, dictated and finalized at location K.
--- NOTE | 2024-07-15 16:02 | ED.LOWEXIN ---
HPI - Extremity Injury (Lower) General Chief Complaint: Extremity Injury, Lower Stated Complaint: Left Ankle Pain Time Seen by Provider: 07/15/24 16:10 Source: patient Mode of arrival: ambulatory Limitations: no limitations History of Present Illness HPI Narrative: Jennifer is a 53-year-old female patient presenting to the clinic today with complaints of left ankle pain. She reports she inverted her ankle 3 weeks ago when she was caring some bricks and stepped off the side of a step. Has some pain and swelling to the ankle with lateral ankle pain. Related Data Home Medications ?Medication ?Instructions ?Recorded ?Confirmed ?Last Taken ?Type Daily Multivitamin 1 tab-cap PO DAILY 04/03/20 01/19/23 Unknown History cetirizine 10 mg tablet 10 mg PO DAILY 04/03/20 01/19/23 Unknown History famotidine 20 mg tablet 20 mg PO DAILY 04/03/20 01/19/23 Unknown History lisinopril 10 mg tablet 10 mg PO DAILY 04/03/20 01/19/23 Unknown History naproxen 500 mg tablet 500 mg PO BID 04/03/20 01/19/23 Unknown History oxybutynin chloride 5 mg tablet 5 mg PO BID 04/03/20 01/19/23 Unknown History rosuvastatin 10 mg tablet 20 mg PO DAILY 04/03/20 01/19/23 Unknown History B-Complex W/Vitamin B-12 1 cap PO DAILY 02/23/21 01/19/23 Unknown History aspirin 81 mg capsule 81 mg PO DAILY 02/23/21 01/19/23 Unknown History cholecalciferol (vitamin D3) 25 25 mcg PO DAILY 02/23/21 01/19/23 Unknown History mcg (1,000 unit) tablet esomeprazole magnesium 40 mg 40 mg PO DAILY 02/23/21 01/19/23 Unknown History capsule,delayed release (Nexium) metoprolol tartrate 25 mg tablet 25 mg PO DAILY 02/23/21 01/19/23 Unknown History nitroglycerin 0.4 mg sublingual 0.4 mg sublingual Q5M PRN Chest 02/23/21 01/19/23 Unknown History tablet Pain bupropion HCl 150 mg tablet,12 hr 150 mg PO DIRECTED 09/13/22 01/19/23 Unknown History sustained-release montelukast 10 mg tablet 10 mg PO DAILY 09/13/22 01/19/23 Unknown History Allergies Allergy/AdvReac Type Severity Reaction Status Date / Time bee venom protein (honey bee) Allergy Severe Anaphylactic Verified 07/15/24 16:13 Shock coconut Allergy Severe Anaphylactic Verified 07/15/24 16:13 Shock Penicillins Allergy Unknown Hives / Verified 07/15/24 16:13 Red Face Sulfa (Sulfonamide Allergy Unknown Hives / Verified 07/15/24 16:13 Antibiotics) Red Face cortisone Allergy Swelling Verified 07/15/24 16:13 Review of Systems Review of Systems: Pertinent positives per HPI. Patient denies any fever, chills, rash, headache, visual changes, dizziness, cough, runny nose, sore throat, shortness of breath, chest pain, palpitations, nausea, vomiting, diarrhea, constipation, abdominal pain, or any urinary issues. PMFSH Past Medical History Medical History Obstructive sleep apnea Myocardial infarction Transient ischemic attack History of seizure Chronic obstructive pulmonary disease Gastroesophageal reflux disease Elevated cholesterol History of congestive heart failure Poorly documented Hypertension Surgical History Surgical History History of hysterectomy History of cholecystectomy History of section History of cardiac catheterization Social History Social History Social History: Surrogate medical decision maker: Chely Cazaresard, friend. Code status: Full code. Smoking status: Former smoker Tobacco type: cigarettes Additional smoking assessment comments: Stopped smoking 6 years ago Alcohol intake: never Substance use: never Substance use type: does not use Lack of Transportation: No Lack of Food: Never True Current Housing: I Have Housing Concerned About Future Housing: YES Difficulty Paying Gas/Electric Bills: No Difficulty Paying for Meds: No Currently Unemployed: No Education: Master's Degree or Higher Difficulty w/ Childcare or Family Care: No Living arrangements: with family Spiritual care concerns: No Comments At the time of my signature, I reviewed and agree with the nursing past medical, surgical, social, and family history. There is no relevant family history pertinent to the patient complaint. Exam Narrative: General: Well-developed, well nourished, in no apparent distress Head: Normocephalic, atraumatic. Cardio: Regular rate and rhythm, s1 and s2 normal, no murmur appreciated. Resp: Clear to auscultation bilaterally, no rhonchi, rales, wheezing or rubs. Musculoskeletal: No deformity, lateral ankle pain and swelling, tender to palpation over the lateral ankle with pain radiating into the medial ankle, grossly normal range of motion, muscle strength strong and equal, peripheral pulse strong, no edema, no cyanosis, normal gait and station Course Course Emergency Course: Portions of this record may have been created with voice recognition software. Level of Care: Express Care Visit Vital Signs Vital signs: Vital Signs Temperature 36.7 C 07/15/24 16:07 Pulse Rate 16 L 07/15/24 16:07 Respiratory Rate 16 07/15/24 16:07 Blood Pressure 135/64 07/15/24 16:07 Pulse Oximetry 98 07/15/24 16:07 Oxygen Delivery Room Air 07/15/24 16:07 Temperature 36.7 C 07/15/24 16:07 Pulse Rate 16 L 07/15/24 16:07 Respiratory Rate 16 07/15/24 16:07 Blood Pressure 135/64 07/15/24 16:07 Pulse Oximetry 98 07/15/24 16:07 Oxygen Delivery Room Air 07/15/24 16:07 Vital signs reviewed MDM - Extremity Injury (Lower) MDM Narrative Medical decision making narrative: At the time of visit patient is resting comfortably on the exam table. Patient appears to be nontoxic. Diagnostics: X-ray of the left ankle was performed and was negative in the clinic today. Plan: I suspect patient has left ankle sprain. Supportive measures were discussed with the patient and they voiced understanding discharge instructions and agrees to treatment plan. Return precautions reviewed Differential Diagnosis Differential diagnosis: Likely ankle sprain and strain and ankle fracture Imaging Data Radiologist's impression: ITS Impressions Ankle X-Ray 07/15/24 16:26 IMPRESSION: No acute osseous finding in the left ankle. Discharge Plan Discharge Clinical Impression: Left ankle sprain Qualifiers: Encounter type: initial encounter Involved ligament of ankle: unspecified ligament Qualified Code(s): S93.402A - Sprain of unspecified ligament of left ankle, initial encounter Patient Disposition: Home Condition: Stable Instructions: Antibiotic Form, Ankle Sprain (ED), Ankle Stirrup Splint (ED) Additional Instructions: X-rays negative for any fracture or malalignment the left ankle Rest, ice, elevate, and wear melissa wrap as directed Tylenol/motrin for pain as discussed. Gradually bear weight No running or sports until healed. Follow up with your PCP if symptoms persist more than 1 week. Patient Language: Mauritanian Prescriptions: No Action B-Complex W/Vitamin B-12 1 cap PO DAILY esomeprazole magnesium [Nexium] 40 mg Capsule,Delayed Release(Dr/Ec) 40 mg PO DAILY nitroglycerin 0.4 mg Tablet, Sublingual 0.4 mg SUBLINGUAL Q5M PRN (Reason: Chest Pain) metoprolol tartrate 25 mg tablet 25 mg PO DAILY cholecalciferol (vitamin D3) 25 mcg (1,000 unit) tablet 25 mcg PO DAILY aspirin 81 mg Capsule 81 mg PO DAILY albuterol sulfate 90 mcg/actuation HFA aerosol inhaler 2 puff inhalation QID PRN (Reason: shortness of breath or wheezing) Qty: 6.7 0RF fluticasone propionate [Flonase Allergy Relief] 50 mcg/actuation spray,suspension 1 spray intranasal BID Qty: 16 0RF Rx Instructions: administer into each nostril cetirizine 10 mg tablet 10 mg PO DAILY famotidine 20 mg tablet 20 mg PO DAILY lisinopril 10 mg tablet 10 mg PO DAILY oxybutynin chloride 5 mg tablet 5 mg PO BID naproxen 500 mg tablet 500 mg PO BID rosuvastatin 10 mg tablet 20 mg PO DAILY Daily Multivitamin 1 tab-cap PO DAILY bupropion HCl 150 mg tablet sustained-release 12 hr 150 mg PO DIRECTED montelukast 10 mg tablet 10 mg PO DAILY albuterol sulfate [Proventil HFA] 90 mcg/actuation HFA aerosol inhaler 2 puff inhalation QID PRN (Reason: shortness of breath or wheezing) Qty: 6.7 0RF Rx Instructions: Whatever is covered with insurance nitrofurantoin monohyd/m-cryst [Macrobid] 100 mg capsule 100 mg PO Q12H 4 Days Qty: 8 0RF Rx Instructions: must administer with a meal/food meclizine 25 mg Tablet 25 mg PO TID Qty: 15 0RF phenazopyridine 100 mg Tablet 200 mg PO TIDWM Qty: 20 0RF Follow-up/Referrals: Debo,Sharon Ruiz APRN [Primary Care Provider] - Time of Disposition: 16:31 Quality NIHSS Nursing Documentation ED NIHSS nursing documentation: reviewed/agree
[2024-07-15 16:07] VITALS: BP 135/64; PULSE 16; RESP 16; TEMP 36.7; O2SAT 98
== END 2024-07-15 16:35 | disposition home or self-care (01) ==
PROVIDERS: Emergency Provider Nurse Practitioner Family; PCP Midwife
DX: S93.402A Sprain of unspecified ligament of left ankle, initial encounter (principal); X50.9XXA Other and unspecified overexertion or strenuous movements or postures, initial encounter; I11.0 Hypertensive heart disease with heart failure; I50.9 Heart failure, unspecified; E78.00 Pure hypercholesterolemia, unspecified; K21.9 Gastro-esophageal reflux disease without esophagitis; J44.9 Chronic obstructive pulmonary disease, unspecified; Z86.73 Personal history of transient ischemic attack (TIA), and cerebral infarction without residual deficits; I25.2 Old myocardial infarction; Z79.82 Long term (current) use of aspirin
CPT/HCPCS: 73610; 99213; G0463

== ENCOUNTER 2024-08-06 08:59 | Emergency (ER) | payer OTHER, SELFPAY ==
--- NOTE | ~2024-08-06 | XR_ITS ---
XR foot RT min 3V Ordering provider: Jeannine Moise APRN History: . fall, injury . Comparison: None. FINDINGS: BONES: No acute fracture or dislocation. JOINT SPACES: Narrowing of the proximal and distal interphalangeal joints.. No tarsal coalition. SOFT TISSUES: Normal. Calcaneal spur. IMPRESSION: No acute osseous abnormality of the right foot. Polyarticular osteoarthritic changes Reviewed, dictated and finalized at location A.
--- NOTE | 2024-08-06 09:01 | ED_ITS ---
HPI - Extremity Injury (Lower) General Chief Complaint: Extremity Injury, Lower Stated Complaint: Right Foot Pain Time Seen by Provider: 08/06/24 09:00 Source: patient Mode of arrival: ambulatory Limitations: no limitations History of Present Illness HPI Narrative: Patient is a 53-year-old female that presents with right foot pain after tripping on pipe that was sticking out of the ground and rolling foot outward. Reports pain with walking and swelling, no bruising. Denies any numbness, tingling or weakness. Has taken Tylenol twice yesterday. Has not elevated or iced Related Data Home Medications ?Medication ?Instructions ?Recorded ?Confirmed ?Last Taken ?Type Daily Multivitamin 1 tab-cap PO DAILY 04/03/20 01/19/23 Unknown History cetirizine 10 mg tablet 10 mg PO DAILY 04/03/20 01/19/23 Unknown History famotidine 20 mg tablet 20 mg PO DAILY 04/03/20 01/19/23 Unknown History lisinopril 10 mg tablet 10 mg PO DAILY 04/03/20 01/19/23 Unknown History oxybutynin chloride 5 mg tablet 5 mg PO BID 04/03/20 01/19/23 Unknown History rosuvastatin 10 mg tablet 20 mg PO DAILY 04/03/20 01/19/23 Unknown History B-Complex W/Vitamin B-12 1 cap PO DAILY 02/23/21 01/19/23 Unknown History aspirin 81 mg capsule 81 mg PO DAILY 02/23/21 01/19/23 Unknown History cholecalciferol (vitamin D3) 25 25 mcg PO DAILY 02/23/21 01/19/23 Unknown History mcg (1,000 unit) tablet esomeprazole magnesium 40 mg 40 mg PO DAILY 02/23/21 01/19/23 Unknown History capsule,delayed release (Nexium) metoprolol tartrate 25 mg tablet 25 mg PO DAILY 02/23/21 01/19/23 Unknown History nitroglycerin 0.4 mg sublingual 0.4 mg sublingual Q5M PRN Chest 02/23/21 01/19/23 Unknown History tablet Pain bupropion HCl 150 mg tablet,12 hr 150 mg PO DIRECTED 09/13/22 01/19/23 Unknown History sustained-release montelukast 10 mg tablet 10 mg PO DAILY 09/13/22 01/19/23 Unknown History Allergies Allergy/AdvReac Type Severity Reaction Status Date / Time bee venom protein (honey bee) Allergy Severe Anaphylactic Verified 07/15/24 16:13 Shock coconut Allergy Severe Anaphylactic Verified 08/06/24 09:08 Shock Penicillins Allergy Unknown Hives / Verified 08/06/24 09:08 Red Face Sulfa (Sulfonamide Allergy Unknown Hives / Verified 08/06/24 09:08 Antibiotics) Red Face cortisone Allergy Swelling Verified 08/06/24 09:08 Review of Systems Review of Systems: All systems reviewed & are unremarkable except as noted in HPI and below Constitutional: Constitutional: Denies body ache(s), Denies chills, Denies fatigue, Denies fever(s), Denies headache(s), Denies malaise and Denies weakness Eyes: Eyes: Denies blurry vision, Denies irritation and Denies loss of vision ENT: Denies otalgia, Denies headache(s), Denies nasal discharge, Denies sinus pain and Denies sore throat Cardiovascular: Cardiovascular: Denies chest pain, Denies irregular heart rhythm and Denies dyspnea Respiratory: Respiratory: Denies dyspnea Gastrointestinal: Gastrointestinal: Denies abdominal pain, Denies melena, Denies hematochezia, Denies diarrhea, Denies nausea and Denies vomiting Musculoskeletal: Musculoskeletal: Denies back pain, Denies myalgias, Reports arthralgias and Reports joint swelling Integumentary/Breasts: Skin/Breast: Denies pruritus and Denies rash Neurologic: Denies headache(s), Denies loss of vision and Denies weakness Psychiatric: Psychiatric: Reports no additional psychiatric complaints Endocrine: Endocrine: Denies fatigue PMFSH Past Medical History Medical History Obstructive sleep apnea Myocardial infarction Transient ischemic attack History of seizure Chronic obstructive pulmonary disease Gastroesophageal reflux disease Elevated cholesterol History of congestive heart failure Poorly documented Hypertension Surgical History Surgical History History of hysterectomy History of cholecystectomy History of section History of cardiac catheterization Social History Social History Social History: Surrogate medical decision maker: Chely Albrecht, friend. Code status: Full code. Smoking status: Former smoker Tobacco type: cigarettes Additional smoking assessment comments: Stopped smoking 6 years ago Alcohol intake: never Substance use: never Substance use type: does not use Lack of Transportation: No Lack of Food: Never True Current Housing: I Have Housing Concerned About Future Housing: YES Difficulty Paying Gas/Electric Bills: No Difficulty Paying for Meds: No Currently Unemployed: No Education: Master's Degree or Higher Difficulty w/ Childcare or Family Care: No Living arrangements: with family Spiritual care concerns: No Comments At time of signature, agree with nursing past medical, surgical, social and family history. There is no relevant family history pertinent to the presenting complaint. Exam Const: General: cooperative, healthy appearing, comfortable, no acute distress and well nourished Nutritional Appearance: well nourished Orientation/consciousness: patient oriented x3 Limitations: no limitations HENMT: Head: normal to inspection, normocephalic and atraumatic Ears: hearing grossly normal bilaterally and external ears normal Face/Nose/Sinus: Normal external nose present, normal facial exam and face symmetric Face and sinus: normal facial exam and face symmetric Mouth: Yes lip normal Eyes: General: appearance normal, both eyes and all related structures Alignment and Position: alignment normal and position normal Periorbital: periorbital findings normal Eyelids: eyelids normal Pupils: Equal, round and reactive pupils present EOM: EOMs intact bilaterally Neck: Neck: normal visual inspection, full ROM and supple Chest: Chest palpation & inspection: normal inspection of the chest Resp: Effort & Inspection: normal respiratory effort and able to speak in complete sentences Auscultation: clear to auscultation bilaterally Cardio: Rate: regular rate Rhythm: regular rhythm Heart sounds: S1 normal heart sound present and S2 normal heart sound present GI: Inspection: normal to inspection Skin: General skin exam: normal color and no rashes or lesions noted Neuro: General: patient oriented x3 and moves all extremities Cranial nerves: Yes Equal, round and reactive pupils present Speech: normal speech Gait exam (Neuro): Normal gait present Extrem: General: normal to inspection, full ROM and no edema Right lower extremity: ankle Details: normal to inspection and abnormal ROM Details: pain with active ROM Details: with plantar flexion, with dorsiflexion, with inversion and with eversion; no tenderness, no swelling, no ecchymosis and achilles tendon exam normal and foot Details: normal capillary refill, tenderness Location: of the dorsal foot Location: laterally, toes with normal ROM, vascular exam Details: dorsalis pedis pulse present and normal capillary refill and tendon exam Details: active flexion normal Location: of all toes and active extension normal Location: of all toes; no ecchymosis Psych: Appearance: grossly normal and well kempt Mental Status: mental status grossly normal Speech and movement: Normal speech and movement present Affect: normal affect Attitude: cooperative Thought process: Normal thought process present Course Course Emergency Course: Patient is aware of diagnosis, understands and agrees to treatment plan. Anticipatory guidance given. Patient agrees to follow-up as directed and is aware of reasons to seek care at the emergency department. Portions of this record may have been created with voice recognition software Level of Care: Express Care Visit Vital Signs Vital signs: Reviewed MDM - Extremity Injury (Lower) MDM Narrative Medical decision making narrative: Ryan wrap applied Pt well hydrated appearing, in no respiratory distress, hemodynamically stable. Recommend supportive care. The patient is stable at time of discharge the clini olive impression was discussed and the patient was given the opportunity to ask questions, which were addressed as completely as possible given the information available at present. Anticipatory guidance and return to care precautions were discussed and the importance of primary care follow-up was stressed and encouraged. The patient voiced understanding of the plan, indications to return, and the need for follow-up. Exam findings show no acute concerns or changes Patient is appropriate for outpatient treatment and follow-up. Differential Diagnosis Differential diagnosis: Likely ankle sprain and strain, ankle fracture and other (Foot sprain, foot fracture) Medical Records Attestation: I reviewed the patient's medical records. Imaging Data Radiologist's impression: XR foot RT min 3V Ordering provider: Jeannine Moise APRN History: . fall, injury . Comparison: None. FINDINGS: BONES: No acute fracture or dislocation. JOINT SPACES: Narrowing of the proximal and distal interphalangeal joints.. No tarsal coalition. SOFT TISSUES: Normal. Calcaneal spur. IMPRESSION: No acute osseous abnormality of the right foot. Polyarticular osteoarthritic changes Discharge Plan Discharge Clinical Impression: Foot sprain Qualifiers: Encounter type: initial encounter Laterality: right Qualified Code(s): S93.601A - Unspecified sprain of right foot, initial encounter Patient Disposition: Home Condition: Stable Instructions: Foot Sprain (ED) Additional Instructions: Xray showed no fracture. Minimize activities that aggravate the condition The RICE protocol. Follow the RICE protocol as soon as possible after your in jury: Rest your ankle by not walking on it. Ice should be immediately applied to keep the swelling down. It can be used for 20 to 30 minutes, three or four times daily. Do not apply ice directly to your skin. Compression dressings, bandages or ryan-wraps will immobilize and support your injured foot. Elevate your foot above the level of your heart as often as possible during the first 48 hours. Medication: For pain, you may take: Tylenol 650-1000mg by mouth every 4-6 hours. Do not exceed 4000mg in 24 hours. Advil (Ibuprofen) 600 mg by mouth every 6 hours. Do not exceed 2400mg in 24 jj rs. 8 AM: Tylenol 11 AM: Ibuprofen 2 PM: Tylenol 5 PM: Ibuprofen 8 PM: Tylenol 11 PM: Ibuprofen 2 AM: Tylenol 5 AM: Ibuprofen Please schedule a follow-up visit with your personal physician for further evaluation and treatment within 1week OR If your symptoms persist, change or worsen significantly before you can contact your personal physician then please, without delay, go to the emergency department for further evaluation. Patient Language: Mongolian Prescriptions: No Action B-Complex W/Vitamin B-12 1 cap PO DAILY esomeprazole magnesium [Nexium] 40 mg Capsule,Delayed Release(Dr/Ec) 40 mg PO DAILY nitroglycerin 0.4 mg Tablet, Sublingual 0.4 mg SUBLINGUAL Q5M PRN (Reason: Chest Pain) metoprolol tartrate 25 mg tablet 25 mg PO DAILY cholecalciferol (vitamin D3) 25 mcg (1,000 unit) tablet 25 mcg PO DAILY aspirin 81 mg Capsule 81 mg PO DAILY albuterol sulfate 90 mcg/actuation HFA aerosol inhaler 2 puff inhalation QID PRN (Reason: shortness of breath or wheezing) Qty: 6.7 0RF fluticasone propionate [Flonase Allergy Relief] 50 mcg/actuation spray,roberto spension 1 spray intranasal BID Qty: 16 0RF Rx Instructions: administer into each nostril cetirizine 10 mg tablet 10 mg PO DAILY famotidine 20 mg tablet 20 mg PO DAILY lisinopril 10 mg tablet 10 mg PO DAILY oxybutynin chloride 5 mg tablet 5 mg PO BID rosuvastatin 10 mg tablet 20 mg PO DAILY Daily Multivitamin 1 tab-cap PO DAILY bupropion HCl 150 mg tablet sustained-release 12 hr 150 mg PO DIRECTED montelukast 10 mg tablet 10 mg PO DAILY albuterol sulfate [Proventil HFA] 90 mcg/actuation HFA aerosol inhaler 2 puff inhalation QID PRN (Reason: shortness of breath or wheezing) Qty: 6.7 0RF Rx Instructions: Whatever is covered with insurance meclizine 25 mg Tablet 25 mg PO TID Qty: 15 0RF phenazopyridine 100 mg Tablet 200 mg PO TIDWM Qty: 20 0RF Follow-up/Referrals: Debo,Sharon Ruiz APRN [Primary Care Provider] - 3 Days Stand Alone Forms: Work/School Release IP Time of Disposition: 09:39
[2024-08-06 09:08] VITALS: BP 111/55; PULSE 79; RESP 16; TEMP 36.6; O2SAT 98
== END 2024-08-06 09:49 | disposition home or self-care (01) ==
PROVIDERS: Emergency Provider Nurse Practitioner Family; PCP Midwife
DX: S93.601D Unspecified sprain of right foot, subsequent encounter (principal); W18.41XD Slipping, tripping and stumbling without falling due to stepping on object, subsequent encounter; J44.9 Chronic obstructive pulmonary disease, unspecified; K21.9 Gastro-esophageal reflux disease without esophagitis; E78.00 Pure hypercholesterolemia, unspecified; I11.0 Hypertensive heart disease with heart failure; I50.9 Heart failure, unspecified; I25.2 Old myocardial infarction; Z86.73 Personal history of transient ischemic attack (TIA), and cerebral infarction without residual deficits; Z79.82 Long term (current) use of aspirin
CPT/HCPCS: 73630; 99213; G0463

== ENCOUNTER 2024-09-24 18:09 | Emergency (ER) | payer OTHER, SELFPAY ==
--- NOTE | ~2024-09-24 | XR_ITS ---
CHEST RADIOGRAPH, PA AND LATERAL CLINICAL HISTORY: chest pain . COMPARISON: 11/29/2022 TECHNIQUE: PA and lateral views of the chest. FINDINGS The cardiomediastinal silhouette is unremarkable. The lungs are clear. IMPRESSION: No focal infiltrate or effusion. Reviewed, dictated and finalized at location A.
--- OUTSIDE RECORDS SUMMARY | 2024-09-24 18:12 | XMS_ITS | Encounter Summary ---
Author Organization [facility] Address [address] [place] [address] Care Team Providers Care Boiler Repair Supervisor Name Role Phone Lety Morin ROTARY DRILL OPERATOR-C Primary Care Provider [phone] Donald Bailey MD Unavailable [phone] Franck Jung MD Unavailable [phone] Yeimi Leon MD Unavailable [phone] Chadwick Weinberg MD Unavailable [phone] Jorge Bruce MD Primary Care Provider [phone] Encounter Details Date Type Department Care Team (Late st Contact Info) Description 11/26/2015 Abstract [facility] AT [address] [address] Ninfa Browning MA Social History Tobacco Use Types Packs/Day Years Used Date Smoking Tobacco: Every Day Cigarettes Electronic Cigarettes Smokeless Tobacco: Never Alcohol Use Standard Drinks/Week Comments No 0 (1 standard drink = 0.6 oz pur e alcohol) Comments Unknown Sex and Gender Information Value Date Recorded Sex Assigned at Not on file Legal Sex Female 3:24 AM CDT Gender Identity Not on file Sexual Orientation Not on file documented as of this encounter Plan of Treatment Not on file documented as of this encounter Procedures Procedure Name Priority Date/Time Associated Diagnosis Comments CBC (OUTSIDE LAB) Routine 03/02/2016 COMPREHENSIVE METABOLIC PANEL Routine 03/02/2016 LIPID PANEL Routine 03/02/2016 HEMOGLOBIN, GLYCOSYLATED Routine 03/02/2016 CBC (OUTSIDE LAB) Routine 12/15/2015 BUN (OUTSIDE LAB) Routine 12/07/2015 HEMATOCRIT Routine 12/07/2015 CREATININE Routine 12/07/2015 CBC (OUTSIDE LAB) Routine 09/28/2015 COMPREHENSIVE METABOLIC PANEL Routine 09/28/2015 documented in this encounter Results * CBC (OUTSIDE LAB) (03/02/2016) WBC 8.1 HGB 13.1 HCT 42.3 PLT 179 03/02/2016 [facility] LAB-OUTSIDE/ABSTRACTED Final Result * LIPID PANEL (03/02/2016) CHOLESTEROL 255 03/02/2016 [facility] LABORATORY Final Result * (ABNORMAL) COMPREHENSIVE METABOLIC PANEL (03/02/2016) SODIUM S/P/B 138 POTASSIUM S/P/B 4.4 CO2 27.1 CHLORIDE S/P/B 100 GLUCOSE 92 CALCIUM S/P/B 9.3 BUN 11 CREATININE S/P/B 0.8 0.5 - 1.0 EGFR AFR. AMER. 101(A) <=90 EGFR NON-AFR. AMER. 83 <=90 ALKALINE PHOSPHATASE S/P/B 86 ALT 16 AST 14 BILIRUBIN TOTAL S/P/B 0.2 ALBUMIN S/P/B 4.0 3.5 - 5.0 TOTAL PROTEIN S/P/B 6.7 03/02/2016 [facility] Final Result * HEMOGLOBIN, GLYCOSYLATED (03/02/2016) HGB A1C 5.7 03/02/2016 [facility] LABORATORY Final Result * CBC (OUTSIDE LAB) (12/15/2015) WBC 7.3 HGB 12.1 HCT 36.8 PLT 183 12/15/2015 [facility] LAB-OUTSIDE/ABSTRACTED Final Result * HEMATOCRIT (12/07/2015) HCT 37.7 12/07/2015 [facility] Final Result * CREATININE (12/07/2015) CREATININE S/P/B 0.9 EGFR AFR. AMER. 72 12/07/2015 [facility]ORAT[facility] Final Result * BUN (OUTSIDE LAB) (12/07/2015) BUN 11 12/07/2015 [facility] LAB-OUTSIDE/ABSTRACTED Final Result * COMPREHENSIVE METABOLIC PANEL (09/28/2015) SODIUM S/P/B 138.6 POTASSIUM S/P/B 4.2 CO2 23.1 CHLORIDE S/P/B 103 GLUCOSE 87 CALCIUM S/P/B 9.1 BUN 16 CREATININE S/P/B 0.97 EGFR AFR. AMER. 81 EGFR NON-AFR. AMER. 67 ALKALINE PHOSPHATASE S/P/B 91.4 ALT 14.9 AST 12.5 BILIRUBIN TOTAL S/P/B 0.2 ALBUMIN S/P/B 3.9 3.5 - 5.0 TOTAL PROTEIN S/P/B 7.1 09/28/2015 [facility] LABORAT[facility] Final Result * CBC (OUTSIDE LAB) (09/28/2015) WBC 7.3 HGB 13.7 HCT 41.9 PLT 146 09/28/2015 [facility] Abstract LAB-OUTSIDE/ABSTRACTED Edite d Result - Final documented in this encounter Visit Diagnoses Not on filedocumented in this encounter Care Teams Boiler Repair Supervisor Relationship Specialty Start Date End Date Lety Morin NP-C [address] [place] [id number] PCP - General FAMILY PRACTICE 07/15/15 11/01/18 Jorge Bruce MD [facility] [address] [place] [address] PCP - General FAMILY PRACTICE 11/02/18 Donald Bailey MD [address] [id number] [place] [facility] CARDIOVASCULAR DISEASE 07/15/15 Franck Jung MD [address] [place] [phone] Surgeon SURGERY 09/06/18 Yeimi Leon MD [address] [facility] [address] [place] [address] Consulting Physician GASTROENTEROLOGY 09/06/18 Chadwick Weinberg MD [address] [facility] [address] [place] [address] Consulting Physician FAMILY MEDICINE SPORTS MEDICINE 09/06/18 documented as of this encounter
--- OUTSIDE RECORDS SUMMARY | 2024-09-24 18:12 | XMS_ITS | Clinical Summary ---
Author Organization [facility] [employer] Address [address] [place] [address] Care Team Providers Care Program Manager Slp Name Role Phone Jorge Bruce MD Primary Care Provider Source Comments [facility] [employer],non-owned Affiliates and Associated Physician Practices is amultiple site organization consisting of ambulatory clinics and hospital sitesin [place], [place], [place] and [place]. This disclosure is being madepursuant to the Care Everywhere program and may not contain all information available regarding this patient. Last updated 17.[facility] [employer] Allergies Active Allergy Reactions Criticality Noted Date Comments Amitriptyline Other,Psychiatric Medium 02/22/2018 Pt states causes her to get angry fast Causes anger issues Bee Venom Anaphylaxis High 09/06/2018 Bee sting Coconut Flavor Anaphylaxis,Swelling High 10/03/2018 Pt states tongue swells and throat closes up Coconut Oil Anaphylaxis,Swelling High 09/06/2018 Tongue swells barber [Other] Other Low 10/03/2018 sneeze Flu Virus Vaccine Nausea and/or Vomiting 2019 Fluticasone Shortness of Breath High 09/19/2018 coughing Advair Diskus Shortness of Breath High 10/03/2018 Penicillins Itching,Urticaria Medium 11/14/2015 Salmeterol Shortness of Breath High 09/19/2018 coughing Sulfa Drugs Vomiting,Urticaria Medium 11/14/2015 Medications * Be aware that medications may not be up to date on this document. Alwaysverify current medications with the patient. ranolazine ER 12hr (RANEXA) 1000 MG tablet Take 1 (one) tablet by mouth 2 times daily 0 9 Active raNITIdine (ZANTAC) 150 MG tablet Take 1 (one) tablet by mouth 12 hours prior to procedure and 1 hour prior to procedure 1 9 Active oxybutynin (DITROPAN) 5 MG tablet Take 1 (one) tablet by mouth once daily as needed 6 9 Active metoprolol tartrate (LOPRESSOR) 25 MG tablet Take 1 (one) tablet by mouth 2 times daily 0 9 Active lisinopril (PRINIVIL; ZESTRIL) 10 MG tablet Take 1 (one) tablet by mouth once daily 6 9 Active dicyclomine (BENTYL) 10 MG capsule Take 2 (two) capsules by mouth 3 times daily as needed 3 9 Active SYMBICORT 160-4.5 MCG/ACT inhaler INL 2 PFS PO BID UTD 2 9 Active albuterol HFA (PROVENTIL;VENTOL IN;PROAIR) 108 (90 Base) MCG/ACT inhaler INL 2 PFS PO Q 4 TO 6 H PRN SOB 0 9 Active mupirocin (BACTROBAN) 2 % ointment 9 Active Magnesium 100 MG Take 250 mg by mouth once daily Active fenofibrate (TRICOR) 145 MG tablet Take 145 mg by mouth once daily Active atorvastatin (LIPITOR) 80 MG tablet Take 1 (one) tablet by mouth at bedtime Active aspirin (ASPIRIN) 81 MG tablet Take 1 (one) tablet by mouth once daily Active Simethicone (GAS RELIEF PO) Take 1 tablet by mouth as needed Active Esomeprazole Magnesium (NEXIUM PO) Take 1 tablet by mouth as needed Active ARGININE PO Take 500 mg by mouth 2 times daily Active Cyanocobalamin (B-12) 2500 MCG Take 1 mcg by mouth once daily Active b complex-c capsule Take 1 (one) capsule by mouth once daily Active Nitroglycerin (NITRO-TIME PO) Acti ve nitroGLYCERIN (NITROSTAT) 0.4 MG tablet Dissolve 1 (one) tablet under the tongue every 5 minutes as needed for Angina Active naproxen (NAPROSYN) 500 MG tablet Take 1 (one) tablet by mouth 2 times daily as needed 6 Active magnesium oxide 250 MG tablet Take 250 mg by mouth once daily Active EPINEPHrine (EPIPEN) 0.3 MG/0.3ML auto-injector pen Inject 0.3 mL into muscle as needed 6 Active diphenhydrAMINE (BENADRYL) 25 MG tablet Take 1 (one) tablet by mouth every 6 hours as needed 9 Active cyclobenzaprine (FLEXERIL) 10 MG tablet Take 1 (one) tablet by mouth 3 times daily as needed 6 Active amLODIPine (NORVASC) 5 MG tablet Take 5 mg by mouth once daily 3 9 Active B Complex TABS Take 1 tablet by mouth once daily 8 Active ergocalciferol (DRISDOL) 1.25 MG (69222 UT) capsule Take 1 capsule by mouth every 7 days 4 capsule 3 9 Active Additional Information Patient not taking.Reported on 07/14/2022 DULoxetine (CYMBALTA) 60 MG capsule Take 1 capsule by mouth once daily 90 capsule 9 Active Additional Information Patient not taking.Reported on 07/14/2022 buPROPion SR 12hr (Wellbutrin-SR) 150 MG tablet 3 Active cetirizine (ZyrTEC) 10 MG tablet Take 1 (one) tablet by mouth once daily 2 Active famotidine (Pepcid) 20 MG tablet Take 1 (one) tablet by mouth 2 times daily 3 Active montelukast (Singulair) 10 MG tablet Take 1 (one) tablet by mouth every evening 3 Active oxyBUTYnin CR 24hr (Ditropan XL) 15 MG tablet Take 1 (one) tablet by mouth once daily as directed. 3 Active rosuvastatin (Crestor) 20 MG tablet TAKE 1 TABLET(20 MG) BY MOUTH EVERY NIGHT 2 Active gabapentin (Neurontin) 100 MG capsuleIndication s:Cervical radiculopathy at C8,Cervical myelopathy with cervical radiculopathy (HCC) Take 1 (one) capsule by mouth 3 times daily as needed 90 capsule 1 4 Active meclizine (Antivert) 25 MG tablet Take 1 (one) tablet by mouth 3 times daily as needed 4 Active loratadine (Claritin) 10 MG tablet Take 1 (one) tablet by mouth once daily Active Active Problems No known active problems Family History Medical History Relation Name Comments Cancer - Prostate Brother Cancer - Skin, Melanoma Brother Lymphoma Brother Arthritis - Osteo Father Hypertension Father Arthritis - Childhood Mother Arthritis - Osteo Mother Arthritis - Rheumatoid Mother Other - Cardiac Mother Relation Name Status Comments Brother Father Mother Social History Tobacco Use Types Packs/Day Years Used Date Smoking Tobacco: Former Cigarettes Q uit: 10/03/2017 Smokeless Tobacco: Never Tobacco Cessation:Counseling Given: Not Answered Alcohol Use Standard Drinks/Week Comments Not Currently 0 (1 standard drink = 0.6 oz pur e alcohol) PHQ-2 Answer Date Recorded Patient Health Questionnaire-2 Score 0 06/26/2023 Comments No Sex and Gender Information Value Date Recorded Sex Assigned at Female 07/05/2022 12:01 PM CDT 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 Gender Identity Not on file Sexual Orientation Not on file Last Filed Vital Signs Vital Sign Reading Time Taken Comments Blood Pressure 104/72 12/11/2018 8:54 AM CDT Pulse 76 12/11/2018 8:54 AM CDT Temperature 36.5 C (97.7 F) 12/11/2018 8:54 AM CDT Respiratory Rate 18 10/03/2018 9:23 AM CDT Oxygen Saturation - - Inhaled Oxygen Concentration - - Weight 100.5 kg (221 lb 9.6 oz) 06/05/2023 8:48 AM CDT Height 152.4 cm (5') 06/05/2023 8:48 AM CDT Body Mass Index 43.28 06/05/2023 8:48 AM CDT Plan of Treatment Health Maintenance Due Date Last Done Comments COLOGUARD (AGES 45-75) - COLON CA SCREENING 1971 COLON MONITORING 1971 COLONOSCOPY - COLON CA SCREENING 1971 CT COLONOGRAPHY - COLON CA SCREENING 1971 Colorectal Cancer Screening 1971 FIT - COLON CA SCREENING 1971 FLEX SIG - COLON CA SCREENING 1971 HIV SCREENING 11/06/1986 HEPATITIS C SCREENING 11/02/1989 DTAP/TDAP/TD VACCINES (1 - Tdap) 11/06/1990 HEPATITIS B VACCINE (1 of 3 - 19+ 3-dose series) 11/06/1990 PAP SMEAR 11/06/1992 PNEUMOCOCCAL VACCINE 50+ (1 of 1 - PCV) 11/06/2021 ZOSTER VACCINE (1 of 2) 11/06/2021 SCREENING FOR DIABETES 06/05/2023 10/03/2018, 2018 COVID-19 VACCINE (1 - 2023- season) 2023 DEPRESSION SCREENING 02/14/2024 06/05/2023 MAMMOGRAM 06/06/2025 06/07/2023, 0405/2022, 09/25/2019, Additional history exists HIB VACCINE Aged Out No longer eligi ble based on patient's age to complete this topic HPV VACCINE Aged Out No longer eligi ble based on patient's age to complete this topic MENINGOCOCCAL (Group B) VACCINE SHARED DECISION-MAKING Aged Out No longer eligible based on patient's age to complete this topic MENINGOCOCCAL GROUPS A/C/Y/W VACCINE Aged Out No longer eligible based on patient's age to complete this topic Procedures Procedure Name Priority Date/Time Associated Diagnosis Comments COMPREHENSIVE METABOLIC PANEL Routine 10/03/2018 12:09 PM CDT SABINA positive Arthralgia, unspecified joint Myalgia Dry mouth from Last 3 Months or Most Recently Relevant to Health Maintenance Results * (ABNORMAL) COMPREHENSIVE METABOLIC PANEL (10/03/2018 12:09 PM CDT) BUN 16 7 - 26 mg/dL 10/03/2018 12:58 PM [facility] Creatinine 1.0 0.6 - 1.2 mg/dL 10/03/2018 12:58 PM [facility] Sodium 139 136 - 145 mmol/L 10/03/2018 12:58 PM [facility] Potassium 4.1 3.5 - 4.5 mmol/L 10/03/2018 12:58 PM [facility] Chloride 103 98 - 107 mmol/L 10/03/2018 12:58 PM [facility] CO2 25 22 - 29 mmol/L 10/03/2018 12:58 PM [facility] Glucose 97 70 - 115 mg/dL 10/03/2018 12:58 PM [facility] Calcium 9.3 8.4 - 10.2 mg/dL 10/03/2018 12:58 PM [facility] Protein Total 7.5 6.0 - 8.3 g/dL 10/03/2018 12:58 PM [facility] Albumin 3.8 3.4 - 5.0 g/dL 10/03/2018 12:58 PM [facility] Bilirubin Total 0.4 0.2 - 1.2 mg/dL 10/03/2018 12:58 PM [facility] Alkaline Phosphatase 86 40 - 150 Units/L 10/03/2018 12:58 PM [facility] ALT 34 0 - 55 Units/L 10/03/2018 12:58 PM [facility] AST 21 5 - 34 Units/L 10/03/2018 12:58 PM [facility] Anion Gap 15 8 - 18 10/03/2018 12:58 PM [facility] BUN/Creatinine Ratio 16 7 - 23 10/03/2018 12:58 PM [facility] Osmolality Calculated 289 270 - 300 mOsm/kg 10/03/2018 12:58 PM [facility] Albumin/Globulin Ratio 1.0(L) 1.1 - 2.3 10/03/2018 12:58 PM [facility] eGFR 60(L) >60 mL/min/1.7 3 m2 10/03/2018 12:58 PM [facility] Blood BLOOD SPECIMEN / Unknown Lab Venipuncture / Unknown 10/03/2018 12:09 PM T 10/03/2018 12:26 PM [facility] us Moreno Cho MD LAB - CHEMISTRY ORDERABLES F inal Result [facility] [address] [phone] from Last 3 Months or Most Recently Relevant [place] [address] [facility] Member Subscriber Plan / Payer (Ef fective 2017-Present) Name:Amelia Fleming Relation to Subscriber:Self Name:Amelia Fleming Payer ID:[id number] (NAIC) Group ID:Not on file Type:Medicaid Managed Care Address: ATTN CLAIMS DEPARTMENT [address] [id number] [facility] Care Teams Program Manager Slp Relationship Specialty Start Date End Date Jorge Bruce MD PCP - General 12/11/18
--- OUTSIDE RECORDS SUMMARY | 2024-09-24 18:12 | XMS_ITS | Encounter Summary ---
Author Organization [facility] Address [address] [place] [address] Care Team Providers Care Molecular Technologist Name Role Phone Lety Morin MESSAGE BROKER DEVELOPER-C Primary Care Provider [phone] Donald Bailey MD Unavailable [phone] Franck Jung MD Unavailable [phone] Yeimi Leon MD Unavailable [phone] Chadwick Weinberg MD Unavailable [phone] Jorge Bruce MD Primary Care Provider [phone] Encounter Details Date Type Department Care Team (Late st Contact Info) Description 10/19/2016 Abstract [facility] AT [address] [address] Ninfa Browning MA Social History Tobacco Use [...] Associated Diagnosis Comments CBC (OUTSIDE LAB) Routine 07/12/2017 COMPREHENSIVE METABOLIC PANEL Routine 07/12/2017 LIPID PANEL Routine 07/12/2017 HEMOGLOBIN, GLYCOSYLATED Routine 07/12/2017 CBC (OUTSIDE LAB) Routine 10/01/2016 BASIC METABOLIC PANEL Routine 10/01/2016 HEPATIC FUNCTION PANEL Routine 10/01/2016 documented in this encounter Results * (ABNORMAL) COMPREHENSIVE METABOLIC PANEL (07/12/2017) SODIUM S/P/B 139 POTASSIUM S/P/B 4.6 CO2 24 CHLORIDE S/P/B 101 GLUCOSE 100 mg/dL CALCIUM S/P/B 9.5 BUN 10 CREATININE S/P/B 1.04(A) 0.5 - 1.0 EGFR AFR. AMER. 75 <=90 EGFR NON-AFR. AMER. 65 <=90 ALKALINE PHOSPHATASE S/P/B 92 ALT 23 AST 15 BILIRUBIN TOTAL S/P/B <0.2 ALBUMIN S/P/B 4.3 3.5 - 5.0 TOTAL PROTEIN S/P/B 7.3 GLOBULIN 3.0 07/12/2017 us Doc [facility] Final Result * LIPID PANEL (07/12/2017) CHOLESTEROL 235 HDL 36 TRIGLYCERIDES 393 LDL (CALCULATED) 120 07/12/2017 us Doc [facility] Edited Resul t - Final * CBC (OUTSIDE LAB) (07/12/2017) WBC 8.2 HGB 13.7 HCT 40.9 PLT 154 07/12/2017 us Doc [facility] LAB-OUTSIDE/ABSTRACTED Final Result * HEMOGLOBIN, GLYCOSYLATED (07/12/2017) HGB A1C 5.4 07/12/2017 us Doc [facility] Final Result * BASIC METABOLIC PANEL (10/01/2016) SODIUM S/P/B 136 POTASSIUM S/P/B 3.2 CO2 21 CHLORIDE S/P/B 104 GLUCOSE 117 mg/dL BUN 16 CREATININE S/P/B 1.0 0.5 - 1.0 EGFR NON-AFR. AMER. 60 <=90 10/01/2016 us Doc [facility] Final Result * HEPATIC FUNCTION PANEL (10/01/2016) ALBUMIN S/P/B 4.0 3.5 - 5.0 ALKALINE PHOSPHATASE S/P/B 68 ALT 34 AST 16 BILIRUBIN TOTAL S/P/B 0.5 TOTAL PROTEIN S/P/B 7.3 10/01/2016 us Doc [facility] Final Result * CBC (OUTSIDE LAB) (10/01/2016) WBC 6.6 HGB 14.1 HCT 41.9 PLT 167 10/01/2016 us Doc [facility] Abstract LAB-OUTSIDE/ABSTRACTED Edite d Result - Final documented in this encounter Visit Diagnoses Not on filedocumented in this encounter Care Teams Molecular Technologist Relationship Specialty Start Date End Date Lety Morin NP-C [address] [place] [address] PCP - General FAMILY PRACTICE 07/15/15 11/01/18 Jorge Bruce MD [address] [facility] [address] [place] [address] PCP - General FAMILY PRACTICE 11/02/18 Donald Bailey MD [facility]. [facility] [address] [place] [address] [place] [employer] Teacher CARDIOVASCULAR DISEASE 07/15/15 Franck Jung MD [facility] [address] [place] [address] Surgeon SURGERY 09/06/18 Yeimi Leon MD [address] [facility] [address] [place] [address] Consulting Physician GASTROENTEROLOGY 09/06/18 Chadwick Weinberg MD [facility] [address] [place] [address] Consulting Physician FAMILY MEDICINE SPORTS MEDICINE 09/06/18 documented as of this encounter
--- OUTSIDE RECORDS SUMMARY | 2024-09-24 18:12 | XMS_ITS | Clinical Summary ---
Author Organization [facility] Address [address] [place] [address] Care Team Providers Care Statement Request Clerk Name Role Phone Donald Bailey MD Unavailable [phone] [facility] Hospital[facility]ck [facility] Unavailable Yeimi Leon MD Unavailable [phone] Chadwick Weinberg MD Unavailable [phone] Jorge Bruce MD Primary Care Provider [phone] Allergies Active Allergy Reactions Criticality Noted Date Comments Amitriptyline Other (see comment) 02/22/2018 Causes anger issues Coconut (Cocos Nucifera) Swelling 09/06/2018 Tongue swells Cortisone Rash,Swelling Low 09/25/2019 Fluticasone Shortness of Breath High 09/19/2018 coughing Influenza Virus Vaccine Nausea and Vomiting 01/2020 Insect Stings Anaphylaxis High 09/06/2018 Bee sting Penicillins Hives 11/14/2015 Salmeterol Shortness of Breath High 09/19/2018 coughing Sulfa Antibiotics Vomiting,Hives 11/14/2015 Medications aspirin (ASPIRIN CHILDRENS) 81 MG chewable tablet Chew 1 tablet by mouth daily. 6 Active albuterol sulfate HFA (VENTOLIN HFA) 108 (90 BASE) MCG/ACT inhaler Inhale 2 puffs into the lungs as needed. 6 Active cyclobenzaprine (FLEXERIL) 10 MG tablet Take 1 tablet (10 mg total) by mouth 3 (three) times daily as needed for Muscle Spasms. 6 Active naproxen (NAPROSYN) 500 MG tablet Take 1 tablet (500 mg total) by mouth daily as needed. 6 Active oxybutynin 5 MG tablet Take 1 tablet by mouth 2 (two) times daily. 6 6 Active esomeprazole 40 MG capsule Take 1 capsule (40 mg total) by mouth every morning before breakfast. 8 Active fenofibrate 145 MG tablet Take 1 tablet (145 mg total) by mouth daily. 30 tablet 6 8 Active Additional Information Patient not taking.Reported on 09/25/2019 nitroglycerin 0[address] 1 tablet (0.4 mg total) under the tongue every 5 (five) minutes as needed for Chest Pain (If taking 3rd dose, contact 911.). 25 tablet 1 9 Active diphenhydrAMINE 25 MG tablet Take 1 tablet (25 mg total) by mouth as needed. 9 Active dicyclomine 20 MG tablet Take 20 mg by mouth 3 (three) times daily as needed. FOR PAIN 0 9 Active amlodipine 2.5 MG tablet Take 1 tablet (2.5 mg total) by mouth every evening. 30 tablet 6 9 Active Additional Information Patient not taking.Reported on 09/25/2019 cetirizine 10 MG tablet Take 10 mg by mouth daily. 0 Active famotidine 20 MG tablet Take 20 mg by mouth daily. 0 Active rosuvastatin 10 MG tablet Take 1 tablet (10 mg total) by mouth nightly at bedtime. 30 tablet 9 0 Active METOPROLOL TARTRATE 25 MG tablet TAKE 1 TABLET BY MOUTH TWICE DAILY 180 tablet 1 0 Active LISINOPRIL 10 MG tablet TAKE 1 TABLET BY MOUTH EVERY MORNING 90 tablet 1 0 Active Active Problems Problem Noted Date Diagnosed Date Chronic pain of both shoulders 07/16/2018 Rotator cuff syndrome of both shoulders 07/17/19 19 Coronary artery disease of n ative artery of [place] heart with stable angina pectoris 01/06/2016 Knee pain 07/02/2014 Mixed hyperlipidemia Essential hypertension Chest pain Resolved Problems Problem Noted Date Diagnosed Date Resolved Date Groin pain, right 12/08/2015 01/06/2016 Immunizations Immunization Administration Dates Next Due Tdap (Boostrix) 10/02/2018 Family History Medical History Relation Comments Arthritis Brother 1 Cancer Brother 1 prostate, melano ma, lymphoma, oral Heart Attack Brother 1 x2 Drug Abuse Brother 2 Diabetes Daughter Arthritis Father Arthritis Maternal Aunt 1 Breast Cancer Maternal Aunt 1 age unknown Arthritis Maternal Aunt 2 Breast Cancer Maternal Aunt 2 age unknown Arthritis Maternal Grandfather Arthritis Maternal Grandmother Heart Attack Maternal Grandmother Stroke Maternal Grandmother hypotension Maternal Grandmother Arthritis Mother Drug Abuse Mother Heart Attack Mother Hypertension Mother Stent Cardiac Mother Stroke Mother Arthritis Paternal Aunt 1 Breast Cancer Paternal Aunt 1 age unknown Arthritis Paternal Aunt 2 Breast Cancer Paternal Aunt 2 age unknown Arthritis Paternal Grandfather Arthritis Paternal Grandmother Heart Attack Paternal Grandmother bradycardia Paternal Grandmother pacemaker Paternal Grandmother Relation Status Comments Brother 1 Brother 2 Daughter Father Maternal Aunt 1 Maternal Aunt 2 Maternal Grandfather Maternal Grandmother (Age 83) Mother (Age 66) Paternal Aunt 1 Paternal Aunt 2 Paternal Grandfather (Age 29) Paternal Grandmother (Age 83) Social History Tobacco Use Types Packs/Day Years Used Date Smoking Tobacco: Former Cigarettes Q uit: 07/06/2017 Electronic Cigarettes Smokeless Tobacco: Never Comments:smoked for 38 years - started age 8 Alcohol Use Standard Drinks/Week Comments No 0 (1 standard drink = 0.6 oz pur e alcohol) Comments No Sex and Gender Information Value Date Recorded Sex Assigned at Not on file Legal Sex Female 3:24 AM CDT Gender Identity Not on file Sexual Orientation Not on file Occupation Industry Job Start Date Job End Date Not on file Not on file Not on file Not on file Last Filed Vital Signs Vital Sign Reading Time Taken Comments Blood Pressure 112/64 09/25/2019 1:26 PM CDT Pulse 83 09/25/2019 1:26 PM CDT Temperature 36.8 C (98.2 F) 11/02/2018 3:03 PM CDT Respiratory Rate 18 11/02/2018 3:03 PM CDT Oxygen Saturation 97% 09/25/2019 1:26 PM CDT Inhaled Oxygen Concentration - - Weight 107 kg (236 lb) 09/25/2019 1:26 PM CDT Height 147.3 cm (4' 10) 09/25/2019 1:26 PM CDT Body Mass Index 49.32 09/25/2019 1:26 PM CDT Plan of Treatment Health Maintenance Due Date Last Done Comments ASCVD Statin 1971 Colorectal Cancer Screening Colonoscopy (10 Years) 1971 Annual Physical 11/06/1974 Hepatitis C 11/06/1989 Hepatitis B Vaccines (1 of 3 - 19+ 3-dose series) 11/06/1990 Pneumococcal Vaccine: 50+ Years (1 of 2 - PCV) 11/06/1990 ASCVD LDL 07/12/2018 07/12/2017, 07/17/2015 Mammogram Screening 09/24/2021 09/25/2019, 08/30/2018, 05/31/2018, Additional history exists Zoster Vaccines (1 of 2) 11/06/2021 COVID-19 Vaccine (1 - season) 2023 DTaP, Tdap and Td Vaccines (2 - Td or Tdap) 10/02/2028 10/02/2018 Meningococcal B Vaccine Aged Out No l onger eligible based on patient's age to complete this topic Meningococcal Vaccine Aged Out No virgilio carlota eligible based on patient's age to complete this topic RSV Immunizations Under 20 Months Aged Out No longer eligible based on patient's age to complete this topic Medical Devices Implanted Type Area Plastic Maker Device Identifier Shelf Expiration Date Model / Serial / Lot L2-5-Cage Pins Breast Clips Bilateral Mesh Ventralex St Medium With Strap [id number] - [id number] Implanted:Qty: 1 on 09/19/2018 by Franck Jung MD at [facility] N/A: Abdomen [employer] - [employer] 04/12/2020 [id number] / / [id number] Description:VENTRAL HERNIA Procedures Procedure Name Priority Date/Time Associated Diagnosis Comments MG DIAG W AMIRAH BILAT DIGI Routine 09/25/2019 8:09 AM CDT Breast nodule LIPID PANEL Routine 07/12/2017 from Last 3 Months or Most Recently Relevant to Health Maintenance Results * MG DIAG W AMIRAH BILAT DIGI (09/25/2019 8:09 AM CDT) Anatomical Region Laterality Modality Breast Bilateral Mammography 09/25/2019 4:04 PM CDT Impressions 09/25/2019 4:13 PM CDT =====IMPRESSION:===== Interval resolution of the retroareolar ductal dilatation in the left breast. The previously noted hyperechoic focus is due to an underlying blood vessel. No suspicious mammographic changes within the left breast. Patient may return to screening mammography. ASSESSMENT: ACR BI-RADS CATEGORY 2 - BENIGN FINDING(S) RECOMMENDATION: 1: Routine screening mammogram bilateral . COMMENTS: Narrative 09/25/2019 4:13 PM CDT EXAMINATION: Digital bilateral diagnostic mammogram with 3-D tomography and left breast ultrasound [id number] EXAM DATE/TIME: 09/25/2019 7:55 AM REASON FOR EXAM: 6 MO F/U COMPARISON: April 10, 2019, August 30, 2018, May 2018 TECHNIQUE: Digital diagnostic mammography of both breasts was performed in addition to 3-D Tomosynthesis technique. This study was read with the assistance of a computer-aided detection system. TISSUE DENSITY: The breast tissue contains scattered fibroglandular densities. FINDINGS: On the right there is no suspicious masses, malignant appearing calcifications, skin thickening or other abnormalities are present. No significant change from the prior exam. There is a Q clip that is present within the left breast. No definite dominant masses or suspicious calcifications are present. Left breast ultrasound: In the retroareolar region of the left breast the patient is had a prior biopsy. The previously noted ductal dilatation seen on ultrasound of August 30, 2018 is no longer present. Additionally noted at the 6:00 position the left breast 6 to 7 cm from the nipple is a small focal hyperechoic area with posterior shadowing. There is pulsation that is present. Duplex and color flow is present. This is likely due to an underlying vessel. This is unchanged as compared back to the prior study. The posterior acoustic shadowing is actually less on the current study than on the prior study of August or March. No suspicious changes. Franck Jung MD MAMMO Final Result * LIPID PANEL (07/12/2017) CHOLESTEROL 235 HDL 36 TRIGLYCERIDES 393 LDL (CALCULATED) 120 07/12/2017 [facility] LABORATORY Edited Resul t - Final from Last 3 Months or Most Recently Relevant to Health Maintenance Insurance KENNARD KENNARD Care Teams Statement Request Clerk Relationship Specialty Start Date End Date Jorge Bruce MD [address] [facility] [id number] [place], [place] [id number] PCP - General FAMILY PRACTICE 11/02/18 Donald Bailey MD [facility]. [facility] [address] [place] [address] [place] Relaster CARDIOVASCULAR DISEASE 07/15/15 Franck Jung MD [address] [facility] [address] [place] [address] Surgeon SURGERY 09/06/18 Yeimi Leon MD [address] [facility] [address] [place] [address] Consulting Physician GASTROENTEROLOGY 09/06/18 Chadwick Weinberg MD [address] [facility] [address] [place] [address] Consulting Physician FAMILY MEDICINE SPORTS MEDICINE 09/06/18
--- OUTSIDE RECORDS SUMMARY | 2024-09-24 18:12 | XMS_ITS | Continuity of Care Document ---
Author Organization [facility] Address [address] [facility] [address] [place] [address] Phone Care Team Providers Care Machine Hostler Name Role Phone Yandel ALMANZAR, Alma Unavailable Unavailable Allergies, Adverse Reactions, Alerts Substance Reaction Status Criticality Sulfa (Sulfonamide Antibiotics) HivesHivesVomiting Act kia No Information PENICILLIN HivesHives Active No Information Medications Medication Instructions Dosage Effective Dates (start - stop) Status Comments MONTELUKAST 10MG TABLETS TAKE 1 TABLET BY MOUTH EVERY DAY IN THE EVENING - Active cetirizine 10 mg tablet take 1 tablet by oral route every day 10 MG - Active 90 day supply. Okay to fill generic if cheaper Symbicort 160 mcg-4.5 mcg/actuation HFA aerosol inhaler inhale 2 puff by inhalation route 2 times every day in the morning and evening 2.00 puff - Active Claritin 10 mg tablet take 1 tablet by oral route every day 10 MG - Active MONTELUKAST 10MG TABLETS TAKE 1 TABLET BY MOUTH EVERY DAY IN THE EVENING - No Longer Active Procedures Procedure Date Est (Level 3) OFFICE/OUTPATIENT VISIT No Est (Level 3) OFFICE/OUTPATIENT VISIT Ma Est (Level 3) OFFICE/OUTPATIENT VISIT Ju Est (Level 3) OFFICE/OUTPATIENT VISIT De Flow Volume Loop Perc Test Intradermal Test New (Level 4) OFFICE/OUTPATIENT VISIT Ju Advance Directives Directive Yes / No Effective Date File Name No Information Encounters Encounter Description Practice Location Reason(s) For Visit Diagnoses Date Provider Providers Copied on Encounter [facility], [address] [place] [address], [id number], tel:[phone] [facility] No Information 5 Yandel Cheshil. [address] [place], [address], [place]. tel:[phone] Referring Provider: Jorge Bruce, [address] [place] [address], [facility]. tel:[phone] [facility], [address] [place] [place] [address], [id number], tel:[phone] [facility] No Information 5 Yandel Cheshil. [address] [place], [place], [facility], [place]. tel:[phone] Referring Provider: Jorge Bruce, [address] [place] [address], [facility]. tel:[phone] [facility], [address] [place] [address], [id number], tel:[phone] [facility] No Information 4 Yandel Cheshil. [address] [place], [address], [place]. tel:[phone] Referring Provider: Jorge Bruce, [address] [place] [address], [facility]. tel:[phone] Est (Level 3) OFFICE/OUTPAT IENT VISIT [facility], [address] [place] [address], [id number], tel:[phone] [facility] allergy symptoms (chief complaint) Body mass index (BMI) 40.0-44.9, adultOther allergic rhinitis 4 Yandel Cheshil. [address], [place], [address], [place]. tel:[phone] Referring Provider: Jorge Bruce [address] [place] [address], [place], [address]. tel:[phone] Est (Level 3) OFFICE/OUTPAT IENT VISIT [facility], [address] [place] [place] [address], [id number], tel:[phone] [facility] allergy symptoms (chief complaint) Body mass index (BMI) 40.0-44.9, adultOther allergic rhinitis 4 Yandel Cheshil. [address], [place], [address], [place]. tel:[phone] Referring Provider: Jorge Bruce [address] [place] [address], [place], [address]. tel:[phone] Est (Level 3) OFFICE/OUTPAT IENT VISIT [facility], [address] [place] [address], [id number], tel:[phone] [facility] food reactions (chief complaint) Other adverse food reaction, initial encounterOther allergic rhinitis 3 Leonides Ravi. [address] [place] [address] , [address] [place] [address], [id number], [place]. tel:[phone] Referring Provider: Jorge Bruce [address] [place] [address], [place], [address]. tel:[phone] Est (Level 3) OFFICE/OUTPAT IENT VISIT [facility], [address] [place] [place] [address], [id number], [place] tel:[phone] [facility] allergy symptoms (chief complaint) Body mass index (BMI) 40.0-44.9, adultOther allergic rhinitis 2 Yandel Cheshil. [address], [place], [address], [place]. tel:[phone] Referring Provider: Jorge Bruce [address] [place] [address], [place], [address]. tel:[phone] New (Level 4) OFFICE/OUTPAT IENT VISIT [facility], [address] [place] [address], [id number], [place] tel:[phone] [facility] allergy symptoms (chief complaint) Body mass index (BMI) 45.0-49.9, adultOther allergic rhinitisCOPD 2 Yandel Cheshil. [address], [place], [address], [place]. tel:[phone] Referring Provider: Jorge Bruce, [address] [facility] [address], [place], [address]. tel:[phone] Family History Family Member Type Diagnosis Age At Onset Mother Problem Immunodeficiency disorder Mother Problem Thyroid disease Mother Problem Asthma Mother Problem Rhinitis Maternal grandmother Problem Eosinophilic esophag itis Brother Problem Rhinitis Payers Payer name Insurance type Covered republican ID Tee davidsonhi(s) [facility] [id number] Social History Type Description Quantity Date Captured Comments Sex Female Smoking Status No Information Chief Complaint And Reason For Visit No Information Reason For Referral Reason For Referral No Information History Of Present Illness Encounter Date Complaint History Of Prese nt Illness allergy symptoms LV: 06/27/23Monica has AR and COPD. She presents for follow up.Kristen is on montelukast (singulair) 10 mg qHS, cetirizine (zyrtec) 10 mg qHS, and loratadine (claritin) 10 mg qAM. She has continued sneezing, itchy eyes, and nasal congestion. She has previously tried nasal rinses and nasal sprays but has not tolerated either. She is on a beta abebe so we have previously decided against SCIT. She reports previously having LLR that limited SCIT; in total, she did about 2 years of SCIT before stopping (about 15 years ago). She reports following with ENT who have recommended surgery for a deviated septum. She has not decided whether or not to have this surgery.COPDMonica is on Symbicort BID and albuterol PRN.She is dealing with vertigo this week.DataAllergy percutaneous testing on 08/12/21 was positive for trees, grasses, ragweed, other weeds, molds, house dust mite, and cockroach with positive histamine and negative diluent controls. Intradermal testing was positive for trees and cat with a negative diluent control allergy symptoms LV: 08/23/22 (PUJA Mera)She has AR and COPD. She presents for follow up.Kristen is on montelukast (singulair) 10 mg qHS, cetirizine (zyrtec) 10 mg qHS, and loratadine (claritin) 10 mg qAM. She has continued sneezing, itchy eyes, and nasal congestion. She has previously tried nasal rinses and nasal sprays but has not tolerated either. She is on a beta abebe so we have previously decided against SCIT. She reports previously having LLR that limited SCIT; in total, she did about 2 years of IMT before stopping (about 15 years ago). She reports following with ENT who have recommended surgery for a deviated septum. COPDShe is on Symbicort BID and albuterol PRN.DataAllergy percutaneous testing on 08/12/21 was positive for trees, grasses, ragweed, other weeds, molds, house dust mite, and cockroach with positive histamine and negative diluent controls. Intradermal testing was positive for trees and cat with a negative diluent control food reactions LV: 02/10/22This is a virtual visit via [email or web address]. She presents today for possible food reactions. Recently, she has noticed a red tongue with little dots when she eats. He has noticed it with salty foods, condiments (ketchup, amaya), pickles, creamed spinach, and chicken. The symptoms go away after drinking water. She does not have angioedema, hives, itching, rhinorrhea, cough, wheeze, or other GI symptoms. She thinks maybe there are white spots with on her tongue, she she doesn't know. She has AR and COPD. She denies GERD. AR:Allergy percutaneous testing on 08/12/21 was positive for trees, grasses, ragweed, other weeds, molds, house dust mite, and cockroach. Intradermal testing was positive for trees and cat.Tx: Singulair 10 mg qhs and PO AH. She does not tolerate nasal sprays. COPDShe is on Symbicort BID and albuterol PRN. allergy symptoms LV: 08/12/21Monica has AR and COPD. She presents for follow up.Kristen is on Azelastine 2 SEN BID. She reports headaches while on the nasal sprays. She takes cetirizine (zyrtec) 10 mg qHS and loratadine (claritin) 10 mg qAM. She has been using a cool mist humidifier which has improved her nasal congestion. She has previously tried nasal rinses but did not tolerate it. COPDShe is on Symbicort BID and albuterol PRN.DataAllergy percutaneous testing on 08/12/21 was positive for trees, grasses, ragweed, other weeds, molds, house dust mite, and cockroach with positive histamine and negative diluent controls. Intradermal testing was positive for trees and cat with a negative diluent control allergy symptoms Asthma vs COPDT he patient has asthma on Symbicort 160/4.5 c g 2 puffs BID (used very rarely - once every 3 to 6 months during illnesses) and albuterol PRN (used rarely). They were diagnosed with asthma in infancy. The patient has never been hospitalized for asthma. As a teenager and in early adulthood, her symptoms improved until recently. She has been told now she has COPD and reports wheezing and coughing. She tends to avoid using inhalers for fear of developing dependency, but also because she feels her symptoms are not significantly bothersome.She occasionally has symptoms with exertion. She wakes up with dyspnea multiple times per week. No ED/PCP/UC visits and no oral steroid bursts because of breathing symptoms in the last year. RhinitisThe patient has a history of perennial rhinitis with seasonal worsening in spring/fall. The symptoms include nasal congestion, rhinorrhea (ant > post), sneezing w/ ocular pruritus. Currently, the patient is on loratadine (claritin) 10 mg daily (held x 7 days), which does not provide adequate relief. Previously they have tried cetirizine (zyrtec) and fexofenadine (maryjane). She previously tried Flonase and found that it made her symptoms worse. The patient does have a history of frequent sinus infections about 2 times per year requiring antibiotics..She recalls being broadly positive after allergy testing multiple years ago in [facility]. She did IMT and had to stop because of reactions; in total, she did about 2 years of IMT before stopping (about 15 years ago). She is on metoprolol.PMH: TIA, unstable angina, CAD, HTN, otherwise as abovePSH: lower back surgery, knee surgery, section x 2, tubal ligation, hysterectomy, trigger finger release bilaterally, cholecystectomyMedication Allergies:PCN - She reports hives with PCN in childhood. She has been avoiding since then. Sulfa - she reports vomiting associated with hivesFHAsthma - motherRhinitis - mother, brother x 2SHTobacco: Former Smoker (1.5 ppd x 39 years; quit 2018)Occupation: Not workingEnvironmental HistoryLives in a duplex w/ central air/forced heat, w/ evidence of water damage in unfinished basementFlooring in Bedroom: carpetPets: cats x 2 Functional Status Date Functional Assessmen t No Information Instructions Date Instruction Additional Infor mation Giving encouragement to exercise Related to Body mass index [BMI] 40.0-44.9, adult Giving encouragement to exercise Related to Body mass index [BMI] 40.0-44.9, adult Giving encouragement to exercise Related to Body mass index [BMI] 40.0-44.9, adult - start Azelastine 2 sprays each nostril twice daily- Please remember to point the nasal spray away from the nasal septum, up and outwards towards the top of the ears on both sides- if nose bleeding occurs, please hold the nasal spray for 2-3 days to allow for healing of the nasal tissue (you may use nasal saline gel or vaseline on a q-tip to help heal the tissue), then restart the nasal spray.- If nose bleeding recurs, please stop the nasal spray and contact our office to set up an appointment for further guidance Related to Other allergic rhinitis Giving encouragement to exercise Related to Body mass index [BMI] 45.0-49.9, adult Assessments Type Assessment Date No Information Patient Care Teams Name Effective Dates (start - stop) Status Members No Information
--- OUTSIDE RECORDS SUMMARY | 2024-09-24 18:12 | XMS_ITS | Clinical Summary ---
Author [place] [facility] [place] [facility] Address [address] [place] [address] Care Team Providers Care Nozzle Worker Name Role Phone Sharon Edmondson NP Primary Care Provider [phone] Jorge Bruce MD Unavailable [phone] Loco Hernandez MD Unavailable [phone] Jovanni Daniel MD Unavailable [phone] Allergies Active Allergy Reactions Criticality Noted Date Comments Amitriptyline Other (See comments),Mental status changes Medium 02/22/2018 Pt states causes her to get angry fast Causes anger issues Causes anger issues Coconut Flavor Anaphylaxis,Swellin g High 10/03/2018 Pt states tongue swells and throat closes up Coconut Oil Anaphylaxis,Swellin g High 09/06/2018 Tongue swells Tongue swells Coconut Oil, Hydrogenated Swelling Medium 09/06/2018 Tongue swells Cortisone Swelling,Rash Medium 09/25/2019 Other reaction(s): burning/ redness burning/ redness Injections; progressively worst Dawn Other (See comments) Low 10/03/2018 sneeze Fluticasone Shortness of breath High 09/19/2018 coughing coughing Fluticasone Propion-Salmeterol Shortness of breath High 10/03/2018 Haemophilus Influenzae Type B Nausea And Vomiting 09/25/2019 Lisinopril Cough Low 06/06/2024 Penicillin Hives Medium 07/12/2023 Penicillins Hives,Itching,Urtic aria Medium 11/14/2015 Salmeterol Shortness of breath High 09/19/2018 coughing coughing Sulfa (Sulfonamide Antibiotics) Hives,Vomiting,Urti caria Medium 11/14/2015 Venom-Honey Bee Anaphylaxis High 09/06/2018 Bee sting Medications aspirin 81 mg chewable tablet Take 1 tablet (81 mg total) by mouth daily 04/22/19 16 Active cetirizine (ZyrTEC) 10 mg tablet TK 1 T PO QD UTD 09/04/19 20 Active famotidine (PEPCID) 20 mg tablet 09/14/19 20 Active metoprolol tartrate (LOPRESSOR) 25 mg immediate release tablet TK 1 T PO BID 09/11/19 20 Active oxybutynin (DITROPAN) 5 mg tablet TK 1 T PO BID UTD 08/28/[address] (NexIUM) 40 mg capsule Take 1 capsule (40 mg total) by mouth daily before breakfast Active cholecalciferol (VITAMIN D-3) 25 mcg (1,000 unit) tablet Take 1 tablet (1,000 Units total) by mouth daily 04/21/19 21 Active nitroglycerin (NITROSTAT) 0.[address] 1 tablet (0.4 mg total) under the tongue every 5 (five) minutes as needed 02/22/19 19 Active budesonide-formotero L (SYMBICORT) 160-4.5 mcg/actuation inhaler Inhale 2 puffs 2 (two) times a day Rinse mouth with water after use. Do not swallow. Active vitamin B comp and C no.3 69-13-07-5-300 mg capsule Take 1 tablet by mouth Active rosuvastatin (CRESTOR) 20 mg tablet TAKE 1 TABLET(20 MG) BY MOUTH EVERY NIGHT 30 tablet 6 08/23/19 22 Active montelukast (SINGULAIR) 10 mg tablet Take 1 tablet (10 mg total) by mouth Active loratadine (CLARITIN) 10 mg tablet Take 1 tablet (10 mg total) by mouth daily Active fenofibrate nanocrystallized (TRICOR) 145 mg tabletIndications:Mi xed hyperlipidemia,Coron hugo artery disease involving [place] coronary artery of [place] heart without angina pectoris Take 1 tablet (145 mg total) by mouth daily 30 tablet 11 03/10/19 24 Active cyclobenzaprine (FLEXERIL) 10 mg tablet Take 1 tablet (10 mg total) by mouth 3 (three) times a day as needed 06/12/19 24 Active gabapentin (NEURONTIN) 100 mg capsule Take 1 capsule (100 mg total) by mouth nightly 06/05/19 24 Active docusate sodium (COLACE) 100 mg capsule Take 1 capsule (100 mg total) by mouth 2 (two) times a day 01/08/20 Active bisacodyl EC (DULCOLAX EC) 5 mg EC tablet Take 1 tablet (5 mg total) by mouth daily as needed 01/08/[address] (CYMBALTA) 30 mg capsule Take 2 capsules (60 mg total) by mouth daily 03/11/19 25 Active polyethylene glycol (MIRALAX) 17 gram/dose bulk powder Take 17 g by mouth once 01/08/20 Active ezetimibe (ZETIA) 10 mg tablet Take 1 tablet (10 mg total) by mouth daily 05/17/19 25 Active meclizine (ANTIVERT) 25 mg tablet Take 1 tablet (25 mg total) by mouth 3 (three) times a day as needed for dizziness 90 tablet 1 06/07/19 25 Active methocarbamoL (ROBAXIN) 500 mg tablet Take 0.5 tablets (250 mg total) by mouth 3 (three) times a day 90 tablet 1 06/07/19 25 Active Active Problems Problem Noted Date Diagnosed Date Other spondylosis with radiculopathy, cervical r egion 08/03/2023 Neck pain 08/03/2023 Weakness of both arms 08/03/2023 Preoperative clearance 01/10/2023 Stroke 11/10/2021 Chest pain 10/13/2021 Right carpal tunnel syndrome 10/13/2021 Left carpal tunnel syndrome 10/13/2021 Essential hypertension, benign 05/31/2021 Acute pain of both shoulders 02/25/2021 Mixed hyperlipidemia 11/30/2020 Coronary artery disease invo lving [place] coronary artery of [place] heart without angina pectoris 05/18/2020 Morbid obesity with BMI of 45.0-49.9, adult 06/2020 KEN (obstructive sleep apnea) 05/11/2020 Assessment & Plan (05/11/2020 3:58 PM CDT): The patient has adapted well to the auto titrating CPAP unit with a range of 5- 20 cm water pressure. I did encourage her to try to again since her sinus infection has resolved. I will refer her to an ENT physician for evaluation. Rotator cuff syndrome of both shoulders 07/17/19 Knee pain 07/02/2014 Resolved Problems Problem Noted Date Diagnosed Date Resolved Date Essential hypertension 05/18/202005/31 Dyslipidemia 05/18/2020 11/30/2020 Trigger finger 09/16/2019 12/08/2021 Encounters Date Type Department Care Team Description 07/02/2024 Telephone [facility] at the [facility] [address] [facility] [address] [place] [id number] Madelin Boyer MD PMC Preprocedure from Last 3 Months Immunizations Immunization Administration Dates Next Due Tdap 10/02/2018 Surgical History Surgery Date Site/Laterality Comments SECTION 1990, 1992 LUMBAR SPINE SURGERY 02/14/2000 - 02/12/2001 L1-5 [facility] TUBAL LIGATION HYSTERECTOMY 02/14/1996 - 02/12/1997 age 27 KNEE SURGERY 02/13/2006 - 02/12/2007 Right arthroscopy HERNIA REPAIR x2 CHOLECYSTECTOMY 02/13/1994 - 02/12/1995 CARPAL TUNNEL RELEASE 11/16/2021 Right TRIGGER FINGER RELEASE Bilateral x2 - one on each side BREAST BIOPSY 05/31/2018 Right BREAST BIOPSY Left Medical History Medical History Date Comments COPD (chronic obstructive pulmonary disease) Hiatal hernia Hypercholesteremia Hypertension Chronic kidney disease Migraines Osteoarthritis Allergic rhinitis GERD (gastroesophageal reflux disease) Sinusitis PONV (postoperative nausea and vomiting) Chronic pain disorder CHF (congestive heart failure) ([facility]) Pt states she was told she is in the early stages of CHF DVT of leg (deep venous thrombosis) ([facility]) over 20 years ago Seizure ([facility]) pt states she wa s having 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 states she had thrombosis in her brain but scans showed nothing. TIA (transient ischemic attack) x3 KEN (obstructive sleep apnea) no cpap use Coronary artery disease invo lving [place] coronary artery of [place] heart without angina pectoris Unstable angina (HCC) UT (myocardial infarction) (HCC) x3 since 2014 Family History Medical History Relation Name Comments Cancer Brother Heart attack Brother Heart disease Brother Hypertension Brother Angina Father Arthritis Father Breast cancer Father's Sister Breast cancer Maternal Grandmother Hypertension Maternal Grandmother Stroke Maternal Grandmother Angina Mother Arthritis Mother Blood Clot Mother Heart attack Mother Heart disease Mother Rheum arthritis Mother Stroke Mother Breast cancer Mother's Sister Relation Name Status Comments Brother Father Alive Father's Sister Maternal Grandmother Mother Mother's Sister Other son Social History Tobacco Use Types Packs/Day Years Used Date Smoking Tobacco: Former Cigarettes Q uit: 2018 Smokeless Tobacco: Never Tobacco Cessation:Counseling Given: Not Answered AUDIT-C Answer Date Recorded Q1: How often do you have a drink containing alcohol? Never 06/06/2024 Q2: How many drinks containi ng alcohol do you have on a typical day when you are drinking? Patient does not drink Q3: How often do you have si x or more drinks on one occasion? Never 06/06/2024 Personal Safety Answer Date Recorded Have you ever been in or are you currently in a harmful physical or emotional relationship or is someone making you feel afraid or unsafe? 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 Gender Identity Female 07/28/2021 2:13 PM CDT Sexual Orientation Not on file Occupation Industry Job Start Date Job End Date SSI Disability- 2000 Not on file Not on file Not on file Obstetrics History Para Term AB IAB SAB Ectopic Multiple Livin g Live Births 4 2 2 Date Outcome GA Total Labor Labor/2nd/3rd Weight Sex Type Anes PTL Nayla A1 A5 Name Clin Term Term Last Filed Vital Signs Vital Sign Reading Time Taken Comments Blood Pressure 145/86 06/06/2024 12:42 PM CDT Pulse 81 06/06/2024 12:42 PM CDT Temperature 36.6 C (97.8 F) 06/06/2024 12:42 PM CDT Respiratory Rate 16 06/06/2024 12:42 PM CDT Oxygen Saturation 97% 06/06/2024 12:42 PM CDT Inhaled Oxygen Concentration - - Weight 99.8 kg (220 lb) 06/06/2024 12:42 PM CDT Height 152.4 cm (5') 06/06/2024 12:42 PM CDT Body Mass Index 42.97 06/06/2024 12:42 PM CDT Plan of Treatment Health Maintenance Due Date Last Done Comments Colon Cancer Screening-Colonoscopy 1971 Depression Screening 1971 Hepatitis C Screening 1971 Hepatitis B Screening 11/06/1989 Regular Well Visit/Exam 18-64 11/06/1989 Zoster Vaccine (1 of 2) 11/06/2021 Breast Cancer Screening-Mammogram 06/06/2024 06/07/2023, 05/17/2022, 09/25/2019, Additional history exists Influenza Vaccine (#1) 2024 DTaP/Tdap/Td Vaccine (2 - Td or Tdap) 10/02/2028 10/02/2018 Pneumococcal vaccine <65 Aged Out No longer eligible based on patient's age to complete this topic Goals Goal Patient Goal Type Associated Problems Recent Progress Patient-Stated? Author CCM Chronic Pain Care Plan Chronic Care Management Worsening( 12:43 PM CDT) Mally Cotton, RN Note: Problem: Chronic Pain Goals: 1. Minimize further functional decline 2. Maximize quality of life 3. Control pain Strategies: - Activity/exercise program recommendation - Conservative stepwise pain medicine strategy with multi-disciplinary approach - Recommend healthy lifestyle strategies and compensatory methods as needed Medical Devices Implanted Type Area Residence Supervisor Device Identifier Shelf Expiration Date Model / Serial / Lot Cage Cage N/A: Back Clip Clip Bilateral: Breast Pin Pin N/A: Back Description:Pins, screws and cages in lower back Screw Screw N/A: Back Procedures Procedure Name Priority Date/Time Associated Diagnosis Comments DIAGNOSTIC MAMMOGRAM BILATERAL W BILL Schedule Routine, Read Routine (OP Routine) 06/07/2023 9:03 AM CDT Nipple discharge from Last 3 Months or Most Recently Relevant to Health Maintenance Results * Diagnostic Mammogram Bilateral W Bill (06/07/2023 9:03 AM CDT) Anatomical Region Laterality Modality Breast Bilateral Mammography 06/07/2023 9:31 AM CDT Narrative 06/07/2023 9:34 AM CDT EXAM DESCRIPTION: US BREAST BILATERAL LIMITED; DIAGNOSTIC MAMMOGRAM BILATERAL W BILL REASON FOR STUDY: 52-year-old female presents for evaluation of intermittent clear bilateral nipple discharge since her hysterectomy at age 27. The patient also reports unchanged chronic bilateral nipple inversion since her hysterectomy. COMPARISON: 05/17/2022, 09/25/2019, 04/10/2019 TECHNIQUE: CC and MLO views of the bilateral breasts were obtained with digital technique using breast tomosynthesis with C view. Limited grayscale ultrasound of the bilateral breasts was performed. FINDINGS: DENSITY: There are scattered areas of fibroglandular density. MAMMOGRAM FINDINGS: There are unchanged biopsy marking clips in both breasts. No suspicious masses, suspicious calcifications, or other suspicious findings are seen in either breast. There is no new suspicious finding in either breast on mammogram. ULTRASOUND FINDINGS: Targeted ultrasound of the bilateral subareolar breasts demonstrates no ductal ectasia, solid or cystic mass, or other suspicious finding. IMPRESSION: 1. No suspicious finding on either mammogram or ultrasound to account for the patient's chronic bilateral nipple discharge. Clinical follow-up is recommended. Any further evaluation regarding this discharge should be based on clinical grounds. 2. No evidence of malignancy in either breast on mammogram or targeted ultrasound. Monthly self-breast examination and screening mammogram in 1 year are recommended. BIRADS 1 - Negative I discussed these results and recommendations with the patient at the time of the examination. The patient was provided a nipple discharge informational handout prior to leaving the breast center. THIS IS AN ELECTRONICALLY VERIFIED FINAL REPORT 06/07/2023 9:34 AM - Electronically signed by Javon Portillo M.D., MD: Report ID: [id number] Reading Location: [facility] Sharon Edmondson NP IMG MAMMO PROCEDURES Final Result from Last 3 Months or Most Recently Relevant to Health Maintenance Insurance [facility] Care Teams Nozzle Worker Relationship Specialty Start Date End Date Sharon Edmondson NP PCP - General Family Medicine 04/29/22 Jorge Bruce MD [address] [address] Referring Physician Family Practice 04/13/22 Loco Hernandez MD [address] [address] Consulting Physician Neurosurgery 07/24/23 Jovanni Daniel MD [address] [address] Cardiology 07/24/23
--- NOTE | 2024-09-24 18:13 | ECG_ITS ---
Test Date: 2024-09-24 18:18:07 Measurements Intervals [place] Rate: 70 P: 26 MA: 137 QRS: 51 QRSD: 90 T: 54 QT: 403 QTc: 438 Interpretive Statements SINUS RHYTHM MINIMAL Q WAVES- LAT/HIGH LAT LEADS BORDERLINE ECG No previous ECG available for comparison Electronically Signed On 09-24-2024 20:38:49 CDT by Richy Gibson D.O.
--- NOTE | 2024-09-24 18:20 | ED.CHESTPAIN ---
HPI - Chest Pain General Chief Complaint: Chest Pain <Luara Epps PA-C - Last Filed: 09/26/24 17:19> Stated Complaint: chest pain for 10 days <Laura Epps PA-C - Last Filed: 09/26/24 17:19> Time Seen by Provider: 09/24/24 18:20 <Laura Epps PA-C - Last Filed: 09/26/24 17:19> Focused HPI: This is a 53 year old female that presents to the ER for chest pain. Ongoing over the last week. Reports she has had to use her nitro quite often the last week. Reports some associated shortness of breath. GENERAL: Well-appearing, well-nourished, and in no acute distress. HEAD: Normocephalic, atraumatic. CHEST: Clear to auscultation. ?No respiratory distress. HEART: Regular rate and rhythm.? NEURO: ?Alert and oriented x3. Patient screened in triage and initial orders placed.? ?Additional care and disposition to be based upon?diagnostic testing and treatment. <Laura Epps PA-C - Last Filed: 09/26/24 17:19> History of Present Illness HPI narrative: Agree with the HPI above. She has a cardiology appointment upcoming next month and call the on-call commercial lender who recommended going to the ER for evaluation of chest pain. Patient states it feels very similar to her normal chest pain and response to nitroglycerin. She is having no chest pain at this time. No history of cardiac stents. Denies any symptoms during my evaluation. <Darian Andrew MD - Last Filed: 09/25/24 06:14> Related Data Home Medications: Home Medications ?Medication ?Instructions ?Recorded ?Confirmed ?Last Taken ?Type Daily Multivitamin 1 tab-cap PO DAILY 04/03/20 01/19/23 Unknown History cetirizine 10 mg tablet 10 mg PO DAILY 04/03/20 01/19/23 Unknown History famotidine 20 mg tablet 20 mg PO DAILY 04/03/20 01/19/23 Unknown History lisinopril 10 mg tablet 10 mg PO DAILY 04/03/20 01/19/23 Unknown History oxybutynin chloride 5 mg tablet 5 mg PO BID 04/03/20 01/19/23 Unknown History rosuvastatin 10 mg tablet 20 mg PO DAILY 04/03/20 01/19/23 Unknown History B-Complex W/Vitamin B-12 1 cap PO DAILY 02/23/21 01/19/23 Unknown History aspirin 81 mg capsule 81 mg PO DAILY 02/23/21 01/19/23 Unknown History cholecalciferol (vitamin D3) 25 25 mcg PO DAILY 02/23/21 01/19/23 Unknown History mcg (1,000 unit) tablet esomeprazole magnesium 40 mg 40 mg PO DAILY 02/23/21 01/19/23 Unknown History capsule,delayed release (Nexium) metoprolol tartrate 25 mg tablet 25 mg PO DAILY 02/23/21 01/19/23 Unknown History nitroglycerin 0.4 mg sublingual 0.4 mg sublingual Q5M PRN Chest 02/23/21 01/19/23 Unknown History tablet Pain bupropion HCl 150 mg tablet,12 hr 150 mg PO DIRECTED 09/13/22 01/19/23 Unknown History sustained-release montelukast 10 mg tablet 10 mg PO DAILY 09/13/22 01/19/23 Unknown History <Laura Epps PA-C - Last Filed: 09/26/24 17:19> Allergies/Adverse Reactions: Allergies Allergy/AdvReac Type Severity Reaction Status Date / Time bee venom protein (honey bee) Allergy Severe Anaphylactic Verified 09/24/24 18:37 Shock coconut Allergy Severe Anaphylactic Verified 09/24/24 18:37 Shock Penicillins Allergy Unknown Hives / Verified 09/24/24 18:37 Red Face Sulfa (Sulfonamide Allergy Unknown Hives / Verified 09/24/24 18:37 Antibiotics) Red Face cortisone Allergy Swelling Verified 09/24/24 18:37 <Laura Epps PA-C - Last Filed: 09/26/24 17:19> Review of Systems Review of Systems: As reviewed above in HPI <Darian Andrew MD - Last Filed: 09/25/24 06:14> PMFSH Past Medical History Medical History: Medical History Obstructive sleep apnea Myocardial infarction Transient ischemic attack History of seizure Chronic obstructive pulmonary disease Gastroesophageal reflux disease Elevated cholesterol History of congestive heart failure Poorly documented Hypertension <Laura Epps PA-C - Last Filed: 09/26/24 17:19> Surgical History Surgical History: Surgical History History of hysterectomy History of cholecystectomy History of section History of cardiac catheterization <Laura Epps PA-C - Last Filed: 09/26/24 17:19> Social History Social History: Social History Social History: Surrogate medical decision maker: Chely Albrecht, friend. Code status: Full code. Smoking status: Former smoker Tobacco type: cigarettes Additional smoking assessment comments: Stopped smoking 6 years ago Alcohol intake: never Substance use: never Substance use type: does not use Lack of Transportation: No Lack of Food: Never True Current Housing: I Have Housing Concerned About Future Housing: YES Difficulty Paying Gas/Electric Bills: No Difficulty Paying for Meds: No Currently Unemployed: No Education: Master's Degree or Higher Difficulty w/ Childcare or Family Care: No Living arrangements: with family Spiritual care concerns: No <Laura Epps PA-C - Last Filed: 09/26/24 17:19> Exam Narrative: GENERAL: [Well-appearing, well-nourished, and in no acute distress.] HEAD: [Normocephalic, atraumatic.] EYES: [PERRLA and EOMI.] ENT: Nares clear, no rhinorrhea or epistaxis. Mucous membranes moist. NECK: Supple. CHEST: [Clear to auscultation. No respiratory distress.] HEART: [Regular rate and rhythm]. No murmur heard. [Normal peripheral pulses.] ABDOMEN: [Soft, nondistended], [nontender], [No rigidity or guarding] EXTREMITIES: Normal range of motion. [No edema.] SKIN: Warm, dry, no rash. NEURO: [No focal deficits]. Alert and oriented [x3.] PSYCH: [Normal mood and affect.] <Darian Andrew MD - Last Filed: 09/25/24 06:14> Course Vital Signs Vital signs: Vital Signs Temperature 97.6 F 09/24/24 18:35 Pulse Rate 63 09/24/24 18:35 Respiratory Rate 16 09/24/24 18:35 Blood Pressure 123/67 09/24/24 18:35 Pulse Oximetry 100 09/24/24 18:35 Temperature 96.3 F L 09/24/24 20:28 Pulse Rate 70 09/24/24 21:45 Respiratory Rate 15 09/24/24 21:45 Blood Pressure 131/71 09/24/24 21:45 Pulse Oximetry 97 09/24/24 21:45 Oxygen Delivery Room Air 09/24/24 21:10 <Laura Epps PA-C - Last Filed: 09/26/24 17:19> Vital Signs Temperature 97.6 F 09/24/24 18:35 Pulse Rate 63 09/24/24 18:35 Respiratory Rate 16 09/24/24 18:35 Blood Pressure 123/67 09/24/24 18:35 Pulse Oximetry 100 09/24/24 18:35 Temperature 96.3 F L 09/24/24 20:28 Pulse Rate 70 09/24/24 21:45 Respiratory Rate 15 09/24/24 21:45 Blood Pressure 131/71 09/24/24 21:45 Pulse Oximetry 97 09/24/24 21:45 Oxygen Delivery Room Air 09/24/24 21:10 <Darian Andrew MD - Last Filed: 09/25/24 06:14> MDM - Chest Pain MDM Narrative Medical decision making narrative: 53-year-old female history of hypertension presenting to the emergency department for concerns of chest pain for 10 days. She states she has an upcoming a cardiology appointment to discuss this but she called the on-call commercial lender today for the office and they referred to the ER. She took a nitroglycerin today which he takes daily. She states she is looking for refill this medication as she has run out and that is which is going to discuss with her doctor as well. She denies any chest pain at this time and denies any symptoms during my examination. She has an unremarkable examination otherwise well-appearing. Discussed with her about serial troponins and patient comfortable with a single troponin for ACS rule out. Cardiac workup ordered including troponin, EKG, chest x-ray, laboratory studies. Cardiac workup is unrevealing with a negative troponin, normal EKG, no signs of any acute ischemia on EKG. No acute infiltrate or effusion on chest x-ray. Patient is asymptomatic with normal vital signs here. Safe for discharge home at this time. <Darian Andrew MD - Last Filed: 09/25/24 06:14> Medical Records Data Attestation: I reviewed the patient's medical records. <Darian Andrew MD - Last Filed: 09/25/24 06:14> Lab Data Attestation: I reviewed the patient's lab results. <Darian Andrew MD - Last Filed: 09/25/24 06:14> Result diagrams: 09/24/24 18:55 09/24/24 18:55 <Laura Epps PA-C - Last Filed: 09/26/24 17:19> Labs: Lab Results 09/24/24 Range/Units 18:55 WBC 6.0 (4.5-10.0) K/mm3 RBC 4.25 (4.2-5.4) M/mm3 Hgb 11.9 L (12.0-15.0) g/dL Hct 37.4 (37.0-47.0) % MCV 88.0 (80-100) fl MCH 28.0 (26-34) pg MCHC 31.8 L (32-36) g/dl RDW 13.4 (11.5-14.5) % Plt Count 204 (150-375) k/mm3 MPV 11.4 H (7.4-10.4) fl Immature Gran % (Auto) 0.2 (0-0.5) % Neut % (Auto) 42.6 L (45.5-73.1) % Lymph % (Auto) 46.6 H (18.3-44.2) % [place] % (Auto) 5.7 (2.6-8.5) % Eos % (Auto) 4.4 (0-4.4) % Baso % (Auto) 0.5 (0.2-1.2) % Lymph # (Auto) 2.78 (0.9-3.2) K/mm3 [place] # (Auto) 0.3 (0.1-0.6) K/mm3 Eos # (Auto) 0.3 (0-0.3) K/mm3 Baso # (Auto) 0.0 (0.0-0.1) K/mm3 Abs Immat Gran (auto) 0.01 (0.00-0.031) K/mm3 Absolute Neuts (auto) 2.5 (1.3-6.7) K/mm3 Absolute Nucleated RBC 0.000 (0.0-0.012) K/mm3 Nucleated RBC % 0.0 (0.0-0.2) % PT 12.8 (11.1-14.7) Seconds INR 0.9 APTT 31.1 (22.3-36.8) Seconds Sodium 136 L (137-145) mmol/L Potassium 3.9 (3.4-5.0) mmol/L Chloride 105 (98-107) mmol/L Carbon Dioxide 24 (22-30) mmol/L Anion Gap 7 (4-12) mmol/L BUN 13 D (7-17) mg/dL Creatinine 1.03 H (0.7-1.0) mg/dL Estim Creat Clear Calc 64 ml/min Estimated GFR 56 L (59 - ) Glucose 128 H (65-110) mg/dL Calcium 9.4 (8.4-10.2) mg/dL Total Bilirubin 0.3 (0.2-1.3) mg/dL AST 37 H (14-36) U/L ALT 39 H (6-35) U/L Alkaline Phosphatase 58 (38-126) U/L Troponin I < 0.012 (0.000-0.034) ng/mL Total Protein 7.5 (6.3-8.2) g/dL Albumin 4.4 (3.5-5.1) g/dL Lipase 178 (23-300) U/L <Laura Epps PA-C - Last Filed: 09/26/24 17:19> Lab Results 09/24/24 Range/Units 18:55 WBC 6.0 (4.5-10.0) K/mm3 RBC 4.25 (4.2-5.4) M/mm3 Hgb 11.9 L (12.0-15.0) g/dL Hct 37.4 (37.0-47.0) % MCV 88.0 (80-100) fl MCH 28.0 (26-34) pg MCHC 31.8 L (32-36) g/dl RDW 13.4 (11.5-14.5) % Plt Count 204 (150-375) k/mm3 MPV 11.4 H (7.4-10.4) fl Immature Gran % (Auto) 0.2 (0-0.5) % Neut % (Auto) 42.6 L (45.5-73.1) % Lymph % (Auto) 46.6 H (18.3-44.2) % [place] % (Auto) 5.7 (2.6-8.5) % Eos % (Auto) 4.4 (0-4.4) % Baso % (Auto) 0.5 (0.2-1.2) % Lymph # (Auto) 2.78 (0.9-3.2) K/mm3 [place] # (Auto) 0.3 (0.1-0.6) K/mm3 Eos # (Auto) 0.3 (0-0.3) K/mm3 Baso # (Auto) 0.0 (0.0-0.1) K/mm3 Abs Immat Gran (auto) 0.01 (0.00-0.031) K/mm3 Absolute Neuts (auto) 2.5 (1.3-6.7) K/mm3 Absolute Nucleated RBC 0.000 (0.0-0.012) K/mm3 Nucleated RBC % 0.0 (0.0-0.2) % PT 12.8 (11.1-14.7) Seconds INR 0.9 APTT 31.1 (22.3-36.8) Seconds Sodium 136 L (137-145) mmol/L Potassium 3.9 (3.4-5.0) mmol/L Chloride 105 (98-107) mmol/L Carbon Dioxide 24 (22-30) mmol/L Anion Gap 7 (4-12) mmol/L BUN 13 D (7-17) mg/dL Creatinine 1.03 H (0.7-1.0) mg/dL Estim Creat Clear Calc 64 ml/min Estimated GFR 56 L (59 - ) Glucose 128 H (65-110) mg/dL Calcium 9.4 (8.4-10.2) mg/dL Total Bilirubin 0.3 (0.2-1.3) mg/dL AST 37 H (14-36) U/L ALT 39 H (6-35) U/L Alkaline Phosphatase 58 (38-126) U/L Troponin I < 0.012 (0.000-0.034) ng/mL Total Protein 7.5 (6.3-8.2) g/dL Albumin 4.4 (3.5-5.1) g/dL Lipase 178 (23-300) U/L <Darian Andrew MD - Last Filed: 09/25/24 06:14> Imaging Data Attestation: I personally reviewed and interpreted this imaging study as follows: <Darian Andrew MD - Last Filed: 09/25/24 06:14> My impression: Impressions Chest X-Ray 09/24/24 18:40 IMPRESSION: No focal infiltrate or effusion. <Darian Andrew MD - Last Filed: 09/25/24 06:14> ECG Data EKG #1: Attestation: I personally reviewed and interpreted this ECG as follows: <Darian Andrew MD - Last Filed: 09/25/24 06:14> ECG completion date: 09/24/24 <Darian Andrew MD - Last Filed: 09/25/24 06:14> ECG completion time: 18:18 <Darian Andrew MD - Last Filed: 09/25/24 06:14> Prior ECG tracings: not available for review <Darian Andrew MD - Last Filed: 09/25/24 06:14> Interpretation: No ST segment elevation, depression or acute inversions. QTC 438, p.r. interval 137. Rate of 70 beats per minute. No previous EKG for comparison. Overall normal sinus rhythm. <Darian Andrew MD - Last Filed: 09/25/24 06:14> Critical Care Time Critical Care Time Critical Care Time: No <Laura Epps PA-C - Last Filed: 09/26/24 17:19> Discharge Plan Discharge Clinical Impression: Chest pain Qualifiers: Chest pain type: unspecified Qualified Code(s): R07.9 - Chest pain, unspecified <Laura Epps PA-C - Last Filed: 09/26/24 17:19> Patient Disposition: Home <Laura Epps PA-C - Last Filed: 09/26/24 17:19> Condition: Stable <Laura Epps PA-C - Last Filed: 09/26/24 17:19> Instructions: Antibiotic Form, Angina (ED), Chest Pain (ED) <Laura Epps PA-C - Last Filed: 09/26/24 17:19> Additional Instructions: Cardiac workup is unremarkable here. Follow-up with your commercial lender. We have sent a refill for nitroglycerin. Return with any persistent or new symptoms or any other emergent concerns. <Laura Epps PA-C - Last Filed: 09/26/24 17:19> Patient Language: Welsh <Laura Epps PA-C - Last Filed: 09/26/24 17:19> Prescriptions: New nitroglycerin 0.4 mg tablet, sublingual 0.4 mg sublingual Q5-15M PRN (Reason: chest pain) Qty: 30 0RF Rx Instructions: do not exceed 3 doses per episode No Action B-Complex W/Vitamin B-12 1 cap PO DAILY esomeprazole magnesium [Nexium] 40 mg Capsule,Delayed Release(Dr/Ec) 40 mg PO DAILY nitroglycerin 0.4 mg Tablet, Sublingual 0.4 mg SUBLINGUAL Q5M PRN (Reason: Chest Pain) metoprolol tartrate 25 mg tablet 25 mg PO DAILY cholecalciferol (vitamin D3) 25 mcg (1,000 unit) tablet 25 mcg PO DAILY aspirin 81 mg Capsule 81 mg PO DAILY albuterol sulfate 90 mcg/actuation HFA aerosol inhaler 2 puff inhalation QID PRN (Reason: shortness of breath or wheezing) Qty: 6.7 0RF fluticasone propionate [Flonase Allergy Relief] 50 mcg/actuation spray,suspension 1 spray intranasal BID Qty: 16 0RF Rx Instructions: administer into each nostril cetirizine 10 mg tablet 10 mg PO DAILY famotidine 20 mg tablet 20 mg PO DAILY lisinopril 10 mg tablet 10 mg PO DAILY oxybutynin chloride 5 mg tablet 5 mg PO BID rosuvastatin 10 mg tablet 20 mg PO DAILY Daily Multivitamin 1 tab-cap PO DAILY bupropion HCl 150 mg tablet sustained-release 12 hr 150 mg PO DIRECTED montelukast 10 mg tablet 10 mg PO DAILY albuterol sulfate [Proventil HFA] 90 mcg/actuation HFA aerosol inhaler 2 puff inhalation QID PRN (Reason: shortness of breath or wheezing) Qty: 6.7 0RF Rx Instructions: Whatever is covered with insurance meclizine 25 mg Tablet 25 mg PO TID Qty: 15 0RF phenazopyridine 100 mg Tablet 200 mg PO TIDWM Qty: 20 0RF <Laura Epps PA-C - Last Filed: 09/26/24 17:19> Follow-up/Referrals: Debo,Sharon Ruiz APRN [Primary Care Provider] - <Laura Epps PA-C - Last Filed: 09/26/24 17:19> Time of Disposition: 21:29 <Laura Epps PA-C - Last Filed: 09/26/24 17:19> 21:29 <Darian Andrew MD - Last Filed: 09/25/24 06:14>
[2024-09-24 18:35] VITALS: BP 123/67; PULSE 63; RESP 16; TEMP 36.4; O2SAT 100
--- NOTE | 2024-09-24 18:58 | PC.NURSE ---
Pt. states she already took aspirin today. Aspirin not administered.
[2024-09-24 19:01] LABS: Hematocrit 37.4 % (37.0-47.0); Hemoglobin 11.9 g/dL (12.0-15.0); Immature Granulocyte Percent A 0.2 % (0-0.5); Lymphocytes Absolute Auto 2.78 K/mm3 (0.9-3.2); Mean Corpuscular HGB Conc 31.8 g/dl (32-36); Mean Corpuscular Hemoglobin 28.0 pg (26-34); Mean Corpuscular Volume 88.0 fl (80-100); Nucleated Red Blood Cells Absolute Auto 0.000 K/mm3 (0.0-0.012); Nucleated Red Blood Cells Perc 0.0 % (0.0-0.2); Platelet Count Result 204 k/mm3 (150-375); Red Blood Count 4.25 M/mm3 (4.2-5.4); White Blood Count 6.0 K/mm3 (4.5-10.0)
[2024-09-24 19:20] LABS: INR 0.9; Partial Thromboplastin Time 31.1 Seconds (22.3-36.8); Prothrombin Time 12.8 Seconds (11.1-14.7)
[2024-09-24 19:22] LABS: Alanine Aminotransferase 39 U/L (6-35); Albumin Level 4.4 g/dL (3.5-5.1); Alkaline Phosphatase 58 U/L (38-126); Anion Gap 7 mmol/L (4-12); Aspartate Amino Transferase 37 U/L (14-36); Bilirubin,Total 0.3 mg/dL (0.2-1.3); Blood Urea Nitrogen 13 mg/dL (7-17); Calcium 9.4 mg/dL (8.4-10.2); Carbon Dioxide 24 mmol/L (22-30); Chloride 105 mmol/L (98-107); Estimated CRCL calculation 64 ml/min; Estimated Glomerular Filt Rate 56; Glucose 128 mg/dL (65-110); Lipase 178 U/L (23-300); Potassium 3.9 mmol/L (3.4-5.0); Sodium 136 mmol/L (137-145); Total Protein 7.5 g/dL (6.3-8.2)
[2024-09-24 19:33] LABS: Troponin I < 0.012 ng/mL (0.000-0.034)
[2024-09-24 20:28] VITALS: BP 118/56; PULSE 73; TEMP 35.7; O2SAT 97
[2024-09-24 21:07] VITALS: BP 142/74; PULSE 75; RESP 17; O2SAT 98
[2024-09-24 21:10] VITALS: O2SAT 97
--- OUTSIDE RECORDS SUMMARY | 2024-09-24 21:34 | XMS_ITS | Clinical Summary ---
Author Organization [facility] Address [address] [place] [address] Care Team Providers Care Paperboard Box Maker Name Role Phone Jorge Bruce MD Primary Care Provider [phone] Source Comments [facility],non-owned Affiliates and Associated Physician Practices is amultiple site organization consisting of ambulatory clinics and hospital sitesin [place], [place], [place] and [place]. This disclosure is being madepursuant to the Care Everywhere program and may not contain all information available regarding this patient. 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 Gender Identity Not on file Sexual Orientation [...] 7 - 26 mg/dL 10/03/2018 12:58 PM [facility] Creatinine 1.0 0.6 - 1.2 mg/dL 10/03/2018 12:58 PM [facility] Sodium 139 136 - 145 mmol/L 10/03/2018 12:58 PM [facility] Potassium 4.1 3.5 - 4.5 mmol/L 10/03/2018 12:58 PM [facility] Chloride 103 98 - 107 mmol/L 10/03/2018 12:58 PM [facility] CO2 25 22 - 29 mmol/L 10/03/2018 12:58 PM [facility] Glucose 97 70 - 115 mg/dL 10/03/2018 12:58 PM [facility] Calcium 9.3 8.4 - 10.2 mg/dL 10/03/2018 12:58 PM [facility] Protein Total 7.5 6.0 - 8.3 g/dL 10/03/2018 12:58 PM [facility] Albumin 3.8 3.4 - 5.0 g/dL 10/03/2018 12:58 PM [facility] Bilirubin Total 0.4 0.2 - 1.2 mg/dL 10/03/2018 12:58 PM [facility] Alkaline Phosphatase 86 40 - 150 Units/L 10/03/2018 12:58 PM [facility] ALT 34 0 - 55 Units/L 10/03/2018 12:58 PM [facility] AST 21 5 - 34 Units/L 10/03/2018 12:58 PM [facility] Anion Gap 15 8 - 18 10/03/2018 12:58 PM [facility] BUN/Creatinine Ratio 16 7 - 23 10/03/2018 12:58 PM [facility] Osmolality Calculated 289 270 - 300 mOsm/kg 10/03/2018 12:58 PM [facility] Albumin/Globulin Ratio 1.0(L) 1.1 - 2.3 10/03/2018 12:58 PM [facility] eGFR 60(L) >60 mL/min/1.7 3 m2 10/03/2018 12:58 PM [facility] Blood BLOOD SPECIMEN / Unknown Lab Venipuncture / Unknown 10/03/2018 12:09 PM T 10/03/2018 12:26 PM [facility] us Moreno Cho MD LAB - CHEMISTRY ORDERABLES F inal Result [facility] [address] [phone] from Last 3 Months or Most Recently Relevant [place] [id number] [facility] Member Subscriber Plan / Payer (Ef fective 2017-Present) Name:Amelia Fleming Relation to Subscriber:Self Name:Amelia Fleming Payer ID:[id number] (NAIC) Group ID:Not on file Type:Medicaid Managed Care Address: ATTN CLAIMS DEPARTMENT [address] [place] [id number] [facility] Care Teams Paperboard Box Maker Relationship Specialty Start Date End Date Jorge Bruce MD PCP - General 12/11/18
--- OUTSIDE RECORDS SUMMARY | 2024-09-24 21:34 | XMS_ITS | Clinical Summary ---
Author Organization [facility] Address [address] [place] [address] Care Team Providers Care Nursing Admin Name Role Phone Donald Bailey MD [facility]available [facility] Un[facility] [phone] Yeimi Leon MD Unavailable [phone] Chadwick Weinberg MD Unavailable Jorge Bruce MD Primary Care Provider [phone] Allergies Active Allergy Reactions Criticality Noted Date [...] artery disease of n ative artery of [place] heart with stable angina pectoris 01/06/2016 Knee [...] this topic Medical Devices Implanted Type Area Engine House Helper Device Identifier Shelf Expiration Date Model / Serial / Lot L2-5-Cage Pins Breast Clips Bilateral Mesh Ventralex St Medium With Strap [id number] - [id number] Implanted:Qty: 1 on 09/19/2018 by Franck Jung MD at [facility] N/A: Abdomen [employer] - DIV C R [employer] 04/12/2020 [id number] / / [id number] Description:VENTRAL HERNIA Procedures Procedure Name Priority Date/Time [...] with 3-D tomography and left breast ultrasound [id number] EXAM DATE/TIME: 09/25/2019 7:55 AM REASON FOR [...] Most Recently Relevant to Health Maintenance Insurance WYATT WYATT Care Teams Nursing Admin Relationship Specialty Start Date End Date Jorge Bruce MD [address] [facility] [address] [place], [place] [id number] PCP - General FAMILY PRACTICE 11/02/18 Donald Bailey MD [facility]. [facility] [address] [place] [address] [place] [employer] Designer CARDIOVASCULAR DISEASE 07/15/15 Franck Jung MD [address] [facility] [address] [place] [address] Surgeon SURGERY 09/06/18 Yeimi Leon MD [address] [facility] [address] [place] [address] Consulting Physician GASTROENTEROLOGY 09/06/18 Chadwick Weinberg MD [address] [facility] [address] [place] [address] Consulting Physician FAMILY MEDICINE SPORTS MEDICINE 09/06/18
--- OUTSIDE RECORDS SUMMARY | 2024-09-24 21:34 | XMS_ITS | Encounter Summary ---
Author Organization [facility] Address [address] [place] [address] Care Team Providers Care Pharmaceutical Specialty Representative Name Role Phone Lety Morin UNDERWATER HUNTER TRAPPER-C Primary Care Provider [phone] Donald Bailey MD Unavailable [phone] Franck Jung MD Unavailable [phone] Yeimi Leon MD Unavailable [phone] Chadwick Weinberg MD Unavailable [phone] Jorge Bruce MD Primary Care Provider [phone] Encounter Details Date Type Department Care Team (Late st Contact Info) Description 10/19/2016 Abstract [facility] AT [address] [address] Ninfa Browning MA Social History Tobacco Use [...] on filedocumented in this encounter Care Teams Pharmaceutical Specialty Representative Relationship Specialty Start Date End Date Lety Morin NP-C [address] [place] [address] PCP - General FAMILY PRACTICE 07/15/15 11/01/18 Jorge Bruce MD [address] [facility] [address] [place] [address] PCP - General FAMILY PRACTICE 11/02/18 Donald Bailey MD [facility]. [facility] [address] [place] [address] [place] Seating Captain CARDIOVASCULAR DISEASE 07/15/15 Franck Jung MD [facility] [address] [place] [address] Surgeon SURGERY 09/06/18 Yeimi Leon MD [address] [facility] [address] [place] [address] Consulting Physician GASTROENTEROLOGY 09/06/18 Chadwick Weinberg MD [facility] [address] [place] [address] Consulting Physician FAMILY MEDICINE SPORTS MEDICINE 09/06/18 documented as of this encounter
--- OUTSIDE RECORDS SUMMARY | 2024-09-24 21:34 | XMS_ITS | Continuity of Care Document ---
Author Organization [facility] Address [address] [place] [address] Phone Care Team Providers Care New Account Interviewer Name Role Phone Yandel ALMANZAR, Alma Unavailable [...] Encounter [facility], [address] [place] [address], [id number], tel:[phone] [facility] No Information 5 Yandel Cheshil. [address] [place], [address], [place]. tel:[phone] Referring Provider: Jorge Bruce, [address] [place] [address], [facility]. tel:[phone] [facility], [address] [place] [address], [id number], tel:[phone] [facility] No Information 5 Yandel Cheshil. [address], [place], [facility], [place]. tel:[phone] Referring Provider: Jorge Bruce, [address] [place] [address], [facility]. tel:[phone] [facility], [address] [place] [address], [id number], tel:[phone] [facility] No Information 4 Yandel Cheshil. [address] [place], [address], [place]. tel:[phone] Referring Provider: Jorge Bruce, [address] [place] [address], [facility]. tel:[phone] Est (Level 3) OFFICE/OUTPAT IENT VISIT [facility], [address] [place] [address], [id number], tel:[phone] [facility] allergy symptoms (chief complaint) Body mass index (BMI) 40.0-44.9, adultOther allergic rhinitis 4 Yandel Cheshil. [address], [place], [address], [place]. tel:[phone] Referring Provider: Jorge Bruce [address] [place] [address], [place], [address]. tel:[phone] Est (Level 3) OFFICE/OUTPAT IENT VISIT [facility], [address] [place] [address], [id number], tel:[phone] [facility] allergy symptoms (chief complaint) Body mass index (BMI) 40.0-44.9, adultOther allergic rhinitis 4 Yandel Cheshil. [address], [place], [address], [place]. tel:[phone] Referring Provider: Jorge Bruce [address] [place] [address], [place], [address]. tel:[phone] Est (Level 3) OFFICE/OUTPAT IENT VISIT [facility], [address] [place] [address], [id number], tel:[phone] [facility] food reactions (chief complaint) Other adverse food reaction, initial encounterOther allergic rhinitis 3 Leonides Ravi. [address] [place] [address] , [address] [place] [address], [id number], [place]. tel:[phone] Referring Provider: Jorge Bruce [address] [place] [address], [place], [address]. tel:[phone] Est (Level 3) OFFICE/OUTPAT IENT VISIT [facility], [address] [place] [address], [id number], [place] tel:[phone] [facility] allergy symptoms (chief complaint) Body mass index (BMI) 40.0-44.9, adultOther allergic rhinitis 2 Yandel Cheshil. [address], [place], [address], [place]. tel:[phone] Referring Provider: Jorge Bruce [address] [place] [address], [place], [address]. tel:[phone] New (Level 4) OFFICE/OUTPAT IENT VISIT [facility], [address] [place] [address], [id number], [place] tel:[phone] [facility] allergy symptoms (chief complaint) Body mass index (BMI) 45.0-49.9, adultOther allergic rhinitisCOPD 2 Yandel Cheshil. [address], [place], [address], [place]. tel:[phone] Referring Provider: Jorge Bruce, [address], [place], [address]. tel:[phone] Family History Family Member Type Diagnosis Age At Onset Mother Problem Immunodeficiency disorder Mother Problem Thyroid disease Mother Problem Asthma Mother Problem Rhinitis Maternal grandmother Problem Eosinophilic esophag itis Brother Problem Rhinitis Payers Payer name Insurance type Covered alliance party ID Tee davidsonhi(s) [facility] [id number] Social History Type Description Quantity Date Captured [...] LV: 02/10/22This is a virtual visit via [email or web address]. She presents today for possible food reactions. [...] after allergy testing multiple years ago in [facility]. She did IMT and had to stop [...]
--- OUTSIDE RECORDS SUMMARY | 2024-09-24 21:34 | XMS_ITS | Clinical Summary ---
Author Organization [facility] Address [address] [place] [address] Care Team Providers Care Plant Superintendent Name Role Phone Sharon Edmondson NP Primary Care Provider Jorge Bruce MD Unavailable [phone] Loco Hernandez MD Unavailable [phone] Jovanni Daniel MD Unavailable [phone] Allergies Active Allergy Reactions Criticality Noted Date [...] Active vitamin B comp and C no.3 56-73-47-5-300 mg capsule Take 1 tablet by mouth [...] tabletIndications:Mi xed hyperlipidemia,Coron hugo artery disease involving [place] coronary artery of [place] heart without angina pectoris Take 1 tablet [...] hyperlipidemia 11/30/2020 Coronary artery disease invo lving [place] coronary artery of [place] heart without angina pectoris 05/18/2020 Morbid obesity [...] Type Department Care Team Description 07/02/2024 Telephone Research [facility] at [facility] [address] [facility] [address] [place] [address] Madelin Boyer MD PMC Preprocedure from Last 3 Months Immunizations Immunization Administration Dates Next Due Tdap 10/02/2018 Surgical History Surgery Date Site/Laterality Comments SECTION 1990, 1992 LUMBAR SPINE SURGERY 02/14/2000 - 02/12/2001 L1-5 [facility] TUBAL LIGATION HYSTERECTOMY 02/14/1996 - 02/12/1997 age [...] Chronic pain disorder CHF (congestive heart failure) ([facility]) Pt states she was told she is in the early stages of CHF DVT of leg (deep venous thrombosis) ([facility]) over 20 years ago Seizure ([facility]) pt states she wa s having 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 states she had thrombosis in her brain but scans showed nothing. 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 Device Identifier Shelf Expiration Date Model [...] by Javon Portillo M.D., MD: Report ID: [id number] Reading Location: [facility] Sharon Edmondson NP IMG MAMMO PROCEDURES Final Result from Last 3 Months or Most Recently Relevant to Health Maintenance Insurance [facility] Care Teams Plant Superintendent Relationship Specialty Start Date End Date Sharon Edmondson NP PCP - General Family Medicine 04/29/22 Jorge Bruce MD [address] [address] Referring Physician Family Practice 04/13/22 Loco Hernandez MD [address] [address] Consulting Physician Neurosurgery 07/24/23 Jovanni Daniel MD [address] [address] Cardiology 07/24/23
--- OUTSIDE RECORDS SUMMARY | 2024-09-24 21:34 | XMS_ITS | Encounter Summary ---
Author Organization [facility] Address [address] [place] [address] Care Team Providers Care Greeting Card Writer Name Role Phone Lety Morin GEAR TOOTH GRINDING MACHINE OPERATOR-C Primary Care Provider [phone] Donald Bailey MD Unavailable [phone] Franck Jung MD Unavailable [phone] Yeimi Leon MD Unavailable [phone] Chadwick Weinberg MD Unavailable [phone] Jorge Bruce MD Primary Care Provider [phone] Encounter Details Date Type Department Care Team (Late st Contact Info) Description 11/26/2015 Abstract [facility] AT [address] [address] Ninfa Browning MA Social History Tobacco Use [...] on filedocumented in this encounter Care Teams Greeting Card Writer Relationship Specialty Start Date End Date Lety Morin NP-C [address] [place] [id number] PCP - General FAMILY PRACTICE 07/15/15 11/01/18 Jorge Bruce MD [facility] [facility] [address] [place] [address] PCP - General FAMILY PRACTICE 11/02/18 Donald Bailey MD [address] [id number] [facility]se [facility] Former Brace End CARDIOVASCULAR DISEASE 07/15/15 Franck Jung MD [address] [place] [id number] Surgeon SURGERY 09/06/18 Yeimi Leon MD [address] [facility] [address] [place] [address] Consulting Physician GASTROENTEROLOGY 09/06/18 Chadwick Weinberg MD [address] [facility] [address] [place] [address] Consulting Physician FAMILY MEDICINE SPORTS MEDICINE 09/06/18 documented as of this encounter
[2024-09-24 21:45] VITALS: BP 131/71; PULSE 70; RESP 15; O2SAT 97
== END 2024-09-24 21:48 | disposition home or self-care (01) ==
LOC: ANHED 21:32
PROVIDERS: Emergency Medicine; Emergency Provider Student in an Organized Health Care Education/Training Program; PCP Midwife
DX: R07.9 Chest pain, unspecified (principal); J44.9 Chronic obstructive pulmonary disease, unspecified; I11.0 Hypertensive heart disease with heart failure; I50.9 Heart failure, unspecified; I25.2 Old myocardial infarction; Z86.73 Personal history of transient ischemic attack (TIA), and cerebral infarction without residual deficits; Z87.891 Personal history of nicotine dependence
CPT/HCPCS: 36415; 71046; 80053; 83690; 84484; 85025; 85610; 85730; 93005; 99284